=== PATIENT | female | born 1955 | race Caucasian/White ===

== ENCOUNTER 2016-07-09 08:08 | Day surgery (SDC) | payer BC ==
--- NOTE | 2016-07-09 07:35 | PCM.HP ---
H&P History of Present Illness - General Date of Service: 07/09/16 Admit Problem/Dx: CC: Abdominal pain HPI: The patient is a 61-year-old female referred by Rosa Tello NP for epigastric pain, dysphagia, and bowel pattern change, possible endoscopy. Patient was last evaluated on 05/12/2016 . The patient was complaining stomach cramps, difficulty swallowing, bloated and bowel pattern changes. The patient was taking Prilosec which did not improve symptoms. She was having constipation. Previously was having around 3 bowel movements per day. She was having episodes of nausea, sweating and stomach cramps about 4-5 times a month. She would then have a bowel movement and then symptoms resolved. She did start Victoza for diabetes but noted the symptoms started before this medication was started. Reviewed labs from 04/10/2016. Hemoglobin A1c was 9.7. CBC was within acceptable limits. TSH was 3.28. The patient was last evaluated 06/03. There have been no changes in their health since that time. She reports she still does have dysphagia. She's on some nausea with eating. She does reports that she has had no bowel explosions for 3 weeks. She still does have some lower abdominal pain at times. She's not taking any Prilosec or acid suppressive therapy. She reports her constipation is somewhat better with use of fiber and MiraLax. She denies any chest pressure today. She does still have occasional gas. She did vomit from the prep and did consume all but one cup of the prep. She did take Zofran. She does report that she did fall in her kitchen while vomiting yesterday she denied her head. She does have a bruise to her elbow and hurting in right knee is also sore. They have no questions or concerns about today's procedures. She did have a negative stress test on Reports-Started having chest pain in February. She reports she forgot to mention this to her PCP at her last visit. Reports- Went to ED about the fifth time chest pain occurred. Patient was evaluated in the ED on 03/03/2016. At that time she had a history of three-day bout of chest pain. Radiating to her back. Pain was epigastric. She was having nausea and night sweats at that time. EKG completed was normal in sinus rhythm. No acute coronary syndrome was noted. CBC was unremarkable. CMP showed slight elevation of BUN at 20. Bilirubin, AST, ALT, alk phosphatase were all normal. Troponin and CK-MB were negative. Lipase was low at 70. BNP was normal at 21. Chest x-ray was normal. D-dimer was normal at 0.29. It was felt that the pain may be reflux or related to a pulled muscle however patient was advised to discuss a stress test with PCP to further evaluate her heart. [id number] Prilosec was recommended. Reports- Will have gas and will have pressure in her upper abdomen. Tries to belch and when she can belch, she feels better. March symptoms got worse. Reports she has "Poop attacks. " Normally would have stools 4-5 times a day, then started having constipation. Will have a stomach ache and need to sit in restroom for 45 minutes. Will have pain and nausea. Finally will have a large BM, normal. Then nausea will go Away. Food has started not to taste as well. Has a Decreased appetite. NOW will have a stool only every three days. Will have attacks twice to three times a week. Feels exhausted. Gets sweaty with the stooling. Has to make sure she is home when it is happening. . Poop attacks occur 1-2 times per week. Feels a central chest pressure due to gas. Elevating HOB did not help. PCP told to take PPI. This also Did not help. Tried Gas X this did not help. Seems to have increased flatus. Stomach will get hard and full. She is Doing nothing for constipation. Takes Magnesium Oxide for reported low Mg, last MG in [facility] was , low normal at 1.8. Has noted Hematochezia a few times. NO: melena/blood on tissue paper/ hemorrhoids. Now is having around 3 stools weekly.. Bowel movements are described as irregular and can be easy to pass, strains first five minutes of stools. Has had unintentional weight loss, 11 pounds. Maybe thinner stools. Has upper and lower left abdominal pain. Denies history of ulcerative colitis or Crohn's disease. Denies any family history of inflammatory bowel disease or GI cancers. Last colonoscopy was 06/14/2004 biopsy showed mild chronic colitis at that time, patch of colitis was noted at 35 cm. This was completed by Dr. Dao. Follow-up was recommended on a when necessary basis of that time. . No reflux, heartburn. Hears a gurgling. Has had Nausea. NO: vomiting. Has had dysphagia. Swallowing is getting worse. Has to eat Smaller portions and chew food well and needs water to go down. NO heimlich maneuver. Last EGD was completed 06/01/[address] Dao. EGD was normal with the exception of small polyps in the body of the stomach. Polypectomy was completed. Pathology showed fundic gland/hyperplastic polyp with focal changes suggesting reactive gastropathy. Had upper GI series following EGD in 2013: IMPRESSION: Negative double-contrast upper GI. No right upper abdominal pain. No meagan/light colored stools. No greasy stools. NO pain/diarrhea with fatty meals. Patient does not have a gallbladder. Describes upper and lower abdomen (left lateral) pain as off and on, deep/ miserable/ache, rates it a 7-8/10. Last mammogram was ? 2014. NO: Family hx of breast cancer. Source of Information: Patient History Limitations: Reports: No limitations - Related Data Allergies/Adverse Reactions: Allergies Allergy/AdvReac Type Severity Reaction Status Date / Time clarithromycin [From Biaxin] Allergy Rash Verified 07/09/16 09:27 levofloxacin [From Levaquin] Allergy Other Verified 07/09/16 09:27 nitrofurantoin Allergy Cannot Verified 07/09/16 09:27 [From Macrobid] Remember nizatidine [From Axid] Allergy Itching Verified 07/09/16 09:27 Penicillins Allergy Rash Verified 07/09/16 09:27 Sulfa (Sulfonamide Allergy Rash Verified 07/09/16 09:27 Antibiotics) Home Medications: Home Meds Ca Cmb No.1/Vit D3/B-6/FA/B12 [Vitamin D3 1,000 Unit] 1 each PO DAILY 07/07/13 [ History] Metoprolol Succinate [Toprol XL] 25 mg PO DAILY 07/07/13 [History] Albuterol [Proventil HFA] 6.7 gm INH Q4H PRN 01/29/15 [History] Ascorbic Acid [Vitamin C] 250 mg PO DAILY 01/29/15 [History] Cyanocobalamin (Vitamin B-12) [Vitamin B-12] 500 mcg SL DAILY 01/29/15 [History] DULoxetine HCl [Cymbalta] 60 mg PO DAILY 01/29/15 [History] Hydrochlorothiazide 25 mg PO DAILY 01/29/15 [History] Insulin Detemir [Levemir] 46 unit SUBCUT BEDTIME 01/29/15 [History] Magnesium 250 mg PO DAILY 01/29/15 [History] Calcium Carbonate/Vitamin D3 [Calcium 600 + Vit D Softgel] 1 cap PO DAILY [History] Lactobacillus Acidophilus [Probiotic] 1 cap PO DAILY 07/08/16 [History] Levothyroxine 25 mcg PO DAILY 07/08/16 [History] Liraglutide [Victoza] 3 ml SQ DAILY 07/08/16 [History] Multivitamin [Multivitamins] 1 tab PO DAILY 07/08/16 [History] fentaNYL [Fentanyl] 50 mcg TOP Q72H 07/08/16 [History] Past Medical History HEENT History: Reports: Allergic rhinitis Other HEENT History: eye surgery for detached retina, wears glasses Cardiovascular History: Reports: High cholesterol, Hypertension Respiratory History: Reports: Asthma, Sleep apnea Gastrointestinal History: Reports: Colon polyp, GERD Other Gastrointestinal History: epigastric pain, colitis, dysphagia, constipation, hiatal hernia, polyp Other 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 History: urgency, hypertonicity of bladder, overactive bladder BEFORE AND AFTER SCHOOL [employer] WORK[employer] History: Reports: Musculoskeletal History: Reports: Fibromyalgia, Osteoarthritis Other Musculoskeletal History: L knee sprain, neck pain, R knee pain Neurological History: Reports: None Psychiatric History: Reports: Anxiety, Depression, Panic attack Endocrine/Metabolic History: Reports: Diabetes, type II, Hypothyroidism, Vitamin D deficiency Hematologic History: Reports: None Immunologic History: Reports: None Oncologic (Cancer) History: Reports: None Other Dermatologic History: acne - Past Surgical History Head Surgeries/Procedures: Reports: None HEENT Surgical History: Reports: Retinal, Tonsillectomy GI Surgical History: Reports: Cholecystectomy, Colonoscopy, EGD, Hernia repair/ other Female Surgical History: Reports: Hysterectomy Musculoskeletal Surgical History: Reports: Arthroscopic knee Other Musculoskeletal Surgeries/Procedures:: L foot surgery, knee surgeries in 00,07,10; lower back surgery, knee injections Social & Family History - Tobacco Use Smoking Status *Q: Never Smoker Second Hand Smoke Exposure: Yes - Caffeine Use Caffeine Use: Reports: None - Alcohol Use Days Per Week of Alcohol Use: 0 Number of Drinks Per Day: 0 Total Drinks Per Week: 0 - Recreational Drug Use Recreational Drug Use: No Drug Use in Last 12 Months: No H&P Review of Systems - Review of Systems: Review Of Systems: See Below Free Text/Narrative: Denies any exertional chest pain. Has exertional shortness of breath. No history of any easy bleeding or bruising. No personal history of clotting or bleeding disorders. Daughter with ITP. History of anesthetic complications, hard to intubate. No history of familial anesthetic complications. Last night had a fast heart beat after a nightmare. Some exertional lower extremity edema. NO dyspnea at rest, orthopnea. Occasionally has wheezing. Has obstructive sleep apnea. NO: chronic cough, upper respiratory symptoms in the last two weeks. No history of blood thinner use. No history of anemia. NO: joint replacement and heart valves. No history of seizure or stroke. No history of fever, chills. Hx of night sweats prior to hysterectomy. No prior cardiology or pulmonology evaluation. Uses albuterol as needed, not daily. All other systems reviewed and were negative except as per history of present illness. General: Reports: no symptoms HEENT: Reports: no symptoms Pulmonary: Reports: No Symptoms Cardiovascular: Reports: no symptoms. Denies: chest pain Gastrointestinal: Reports: Other (see hpi) Musculoskeletal: Reports: other (see hpi) Skin: Reports: bruising (right elbow) Psychiatric: Reports: no symptoms Neurological: Reports: No Symptoms Hematologic/Lymphatic: Reports: no symptoms Immunologic: Reports: no symptoms Exam - Exam Exam: See Below - Vital Signs Weight: 104.326 kg - Exam General: alert, oriented HEENT: Conjunctiva clear. No: Scleral icterus Lungs: Clear to auscultation, Normal respiratory effort Cardiovascular: regular rate, regular rhythm, normal S1, normal S2 Abdomen: soft. No: distention, guarding, tenderness Back Exam: normal inspection Extremities: normal inspection, normal pulses. No: clubbing, cyanosis, edema Skin: warm, dry, intact Neuro Extensive - Mental Status: alert, oriented x3, normal mood/affect, normal cognition, memory intact Psychiatric: alert, normal affect, normal mood *Q Meaningful Use (ADM) - VTE *Q VTE Criteria *Q: - Stroke *Q Stroke Criteria *Q: - AMI *Q AMI Criteria *Q: - Problem List (1) Epigastric pain SNOMED Code(s): 49005241 ICD Code: R10.13 - EPIGASTRIC PAIN Status: Acute Current Visit: Yes (2) Dysphagia SNOMED Code(s): 30632501, 147946639 ICD Code: R13.10 - DYSPHAGIA, UNSPECIFIED Status: Acute Current Visit: Yes (3) Change in bowel habits SNOMED Code(s): 636743007, 419452130 ICD Code: R19.4 - CHANGE IN BOWEL HABIT Status: Acute Current Visit: Yes (4) Lower abdominal pain SNOMED Code(s): 12293987 ICD Code: R10.30 - LOWER ABDOMINAL PAIN, UNSPECIFIED Status: Acute Current Visit: Yes (5) Constipation SNOMED Code(s): 64806179 ICD Code: K59.00 - CONSTIPATION, UNSPECIFIED Status: Acute Current Visit : Yes (6) Colitis determined by colorectal biopsy SNOMED Code(s): 36201217, 642243712 ICD Code: K52.9 - NONINFECTIVE GASTROENTERITIS AND COLITIS, UNSPECIFIED Status: Acute Current Visit: Yes (7) Hematochezia SNOMED Code(s): 877199680 ICD Code: K92.1 - MELENA Status: Acute Current Visit: Yes (8) Decreased stool caliber SNOMED Code(s): 7831453 ICD Code: R19.5 - OTHER FECAL ABNORMALITIES Status: Acute Current Visit: Yes Problem List Initiated/Reviewed/Updated: Yes Orders Last 24hrs: Active Orders 24 hr Category Date Time Status Peripheral IV Care [RC] . DIRECTED Care 07/09/16 00:01 Active Verify Patient Consent Obtain [RC] ASDIRECTED Care 07/09/16 00:01 Active Lactated Ringers [Ringers, Lactated] 1,000 ml Med 07/09/16 00:01 Active IV ASDIRECTED Lidocaine 1%/Sod Bicarbonate [Buffered Lidocaine 1% in Med 07/09/16 00:01 Active NS 8.4%] 0.25 ml IV ONETIME PRN Sodium Chloride 0.9% [Saline Flush] Med 07/09/16 00:01 Active 10 ml FLUSH ASDIRECTED PRN Medication Administration Instruction [OM.PC] Routine Oth 07/09/16 00:01 Ordered Peripheral IV Insertion Adult [OM.PC] Routine Oth 07/09/16 00:01 Ordered Medication Orders Lactated Ringer's (Ringers, Lactated) 1,000 mls @ 125 mls/hr IV ASDIRECTED NESTOR Lidocaine/Sodium Bicarbonate (Buffered Lidocaine 1% In Ns 8.4%) 0.25 ml IV ONETIME PRN PRN Reason: Prior to IV Start Sodium Chloride (Saline Flush) 10 ml FLUSH ASDIRECTED PRN PRN Reason: Keep Vein Open Assessment/Plan Comment:: 61yr female with epigastric pain, dysphagia, change in bowel habits, lower abdominal pain, constipation, hx of chronic colitis on prior biopsy, Hematochezia, smaller caliber stools, need for diagnostic EGD with possible balloon dilation and diagnostic colonoscopy Hx of Chest pressure Over due for mammogram. PLAN: We discussed performing a diagnostic EGD with possible balloon dilation and diagnostic colonoscopy. Proceed as planned. Risks and benefits reviewed without further questions or concerns. Consent obtained. Overdue for mammogram. Patient plans to call [facility] to schedule as this is where she had last mammogram. I personally reviewed the patient's previous medical records and laboratory studies. Patient verbalized understanding and agreed with care plan. Patient evaluated with [facility]. Plan formulated above. Violeta Antonio NP scribing for Dr. Jenni Moya General Surgery Department [facility]
[~2016-07-09 08:08] MED LIST: Lactated Ringers 1,000 ML IV SCH; Lidocaine 1%/Sod Bicarbonate in NS 8.4% 1 ML Syringe IV PRN; Sodium Chloride 0.9% 10 ML Syringe FLUSH PRN
[2016-07-09] MEDS ORDERED: Lidocaine 1% 4 ML ONE (08:38)
[2016-07-09] MEDS ORDERED: Propofol 200 MG/20 ML SDV ONE ×2 (08:39→10:14)
--- NOTE | 2016-07-09 08:46 | PCM.PREANE ---
Preanesthetic Assessment - Anesthesia/Transfusion/Family Hx Anesthesia History: Prior Anesthesia Reaction Type of Anesthesia Reaction: Excessive Somnolence Family History of Anesthesia Reaction: No Transfusion History: No Prior Transfusion(s) Intubation History: History of Difficulty Intubation (viewed anesthesia record from 2010, had to be awaken with procedure in [place] due to difficult airway ) - Review of Systems General: No Symptoms Pulmonary: No Symptoms Cardiovascular: No Symptoms Gastrointestinal: Nausea, Vomiting (from prep ) Neurological: No Symptoms Other: Reports: Diabetes (Blood surgar this morning 126 per patient ) - Physical Assessment NPO Status Date: 07/08/16 NPO Status Time: 17:00 Pulse: 86 O2 Sat by Pulse Oximetry: 98 Respiratory Rate: 16 Blood Pressure: 120/87 Temperature: 98.5 C Height: 1.57 m Weight: 104.326 kg ASA Class: 3 Mental Status: Alert & Oriented x3 Airway Class: Mallampati = 2 Dentition: Reports: Normal Dentition Thyro-Mental Finger Breadths: 3 Mouth Opening Finger Breadths: 5 ROM/Head Extension: Limited/Partial Lungs: Clear to auscultation, Normal respiratory effort Cardiovascular: Regular Rate, Regular Rhythm - Allergies Allergies/Adverse Reactions: Allergies Allergy/AdvReac Type Severity Reaction Status Date / Time clarithromycin [From Biaxin] Allergy Rash Verified 07/08/16 15:15 levofloxacin [From Levaquin] Allergy Other Verified 07/08/16 15:15 nitrofurantoin Allergy Cannot Verified 07/08/16 15:15 [From Macrobid] Remember nizatidine [From Axid] Allergy Itching Verified 07/08/16 15:15 Penicillins Allergy Rash Verified 07/08/16 15:15 Sulfa (Sulfonamide Allergy Rash Verified 07/08/16 15:15 Antibiotics) - Blood Blood Available: No - Anesthesia Plan Pre-Op Medication Ordered: None - Acknowledgements Anesthesia Type Planned: MAC Pt an Appropriate Candidate for the Planned Anesthesia: Yes Alternatives and Risks of Anesthesia Discussed w Pt/Guardian: Yes Pt/Guardian Understands and Agrees with Anesthesia Plan: Yes Additional Comments: Discussed possibility of difficult airway PreAnesthesia Questionnaire HEENT History: Reports: Allergic rhinitis Other HEENT History: eye surgery for detached retina, wears glasses Cardiovascular History: Reports: High cholesterol, Hypertension Respiratory History: Reports: Asthma, Sleep apnea Gastrointestinal History: Reports: Colon polyp, GERD Other Gastrointestinal History: epigastric pain, colitis, dysphagia, constipation, hiatal hernia, polyp Other 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 History: urgency, hypertonicity of bladder, overactive bladder [employer] History: Reports: Musculoskeletal History: Reports: Fibromyalgia, Osteoarthritis Other Musculoskeletal History: L knee sprain, neck pain, R knee pain Neurological History: Reports: None Psychiatric History: Reports: Anxiety, Depression, Panic attack Endocrine/Metabolic History: Reports: Diabetes, type II, Hypothyroidism, Vitamin D deficiency Hematologic History: Reports: None Immunologic History: Reports: None Oncologic (Cancer) History: Reports: None Other Dermatologic History: acne - Past Surgical History Head Surgeries/Procedures: Reports: None HEENT Surgical History: Reports: Retinal, Tonsillectomy GI Surgical History: Reports: Cholecystectomy, Colonoscopy, EGD, Hernia repair/ other Female Surgical History: Reports: Hysterectomy Musculoskeletal Surgical History: Reports: Arthroscopic knee Other Musculoskeletal Surgeries/Procedures:: L foot surgery, knee surgeries in 00,07,10; lower back surgery, knee injections - SUBSTANCE USE Smoking Status *Q: Never Smoker Tobacco Use Within Last Twelve Months: No Second Hand Smoke Exposure: Yes Days Per Week of Alcohol Use: 0 Number of Drinks Per Day: 0 Total Drinks Per Week: 0 Recreational Drug Use History: No - HOME MEDS Home Medications: Home Meds Ca Cmb No.1/Vit D3/B-6/FA/B12 [Vitamin D3 1,000 Unit] 1 each PO DAILY 07/07/13 [ History] Metoprolol Succinate [Toprol XL] 25 mg PO DAILY 07/07/13 [History] Albuterol [Proventil HFA] 6.7 gm INH Q4H PRN 01/29/15 [History] Ascorbic Acid [Vitamin C] 250 mg PO DAILY 01/29/15 [History] Cyanocobalamin (Vitamin B-12) [Vitamin B-12] 500 mcg SL DAILY 01/29/15 [History] DULoxetine HCl [Cymbalta] 60 mg PO DAILY 01/29/15 [History] Hydrochlorothiazide 25 mg PO DAILY 01/29/15 [History] Insulin Detemir [Levemir] 46 unit SUBCUT BEDTIME 01/29/15 [History] Magnesium 250 mg PO DAILY 01/29/15 [History] Calcium Carbonate/Vitamin D3 [Calcium 600 + Vit D Softgel] 1 cap PO DAILY [History] Lactobacillus Acidophilus [Probiotic] 1 cap PO DAILY 07/08/16 [History] Levothyroxine 25 mcg PO DAILY 07/08/16 [History] Liraglutide [Victoza] 3 ml SQ DAILY 07/08/16 [History] Multivitamin [Multivitamins] 1 tab PO DAILY 07/08/16 [History] fentaNYL [Fentanyl] 50 mcg TOP Q72H 07/08/16 [History] - CURRENT (IN HOUSE) MEDS Current Meds: Current Medications Lactated Ringer's (Ringers, Lactated) 1,000 mls @ 125 mls/hr IV ASDIRECTED NESTOR Lidocaine/Sodium Bicarbonate (Buffered Lidocaine 1% In Ns 8.4%) 0.25 ml IV ONETIME PRN PRN Reason: Prior to IV Start Sodium Chloride (Saline Flush) 10 ml FLUSH ASDIRECTED PRN PRN Reason: Keep Vein Open Discontinued Medications Lidocaine HCl (Xylocaine-Mpf 1%) Confirm Administered Dose 4 mls @ as directed .ROUTE .STK-MED ONE Stop: 07/09/16 08:39 Propofol (Diprivan 20 Ml) Confirm Administered Dose 200 mg .ROUTE .STK-MED ONE Stop: 07/09/16 08:40
--- NOTE | 2016-07-09 10:25 | PCM48HPAN ---
Post Anesthesia Note - EVALUATION WITHIN 48HRS OF ANESTHETIC Vital Signs in Normal Range: Yes Patient Participated in Evaluation: Yes Respiratory Function Stable: Yes Airway Patent: Yes Cardiovascular Function Stable: Yes Hydration Status Stable: Yes Pain Control Satisfactory: Yes Nausea and Vomiting Control Satisfactory: Yes Mental Status Recovered: Yes
--- NOTE | 2016-07-09 10:28 | PCM.OPNOTE ---
- General Post-Op/Procedure Note Date of Surgery/Procedure: 07/09/16 Operative Procedure(s): 1. Diagnostic EGD with cold forceps biopsy. 2. Diagnostic colonoscopy with cold forceps biopsy Pre Op Diagnosis: Dysphagia, change in bowel habits Post-Op Diagnosis: Gastritis, duodenitis, internal hemorrhoids [place] [facility] [place]geon: Jenni Moya Anesthesia Provider: Angeline Person Pathology: 1. Small bowel biopsy 2. Antral biopsy 3. Distal esophageal biopsy 4. Terminal ileum biopsy 5. Random colon biopsy 6. Stool studies for C. difficile, stool ova and parasites, stool culture, and fecal leukocytes. Fluid Replacement, Intraop: 600 (mL crystalloid) EBL in mLs: 1 Complications: None Condition: Good Free Text/Narrative:: INDICATION FOR PROCEDURE: The patient is a 61-year-old woman who was referred to me by SHAVON Manrique for evaluation for dysphagia and a change in bowel habits with occasional explosive diarrhea. Performing a colonoscopy and EGD and the associated risks of the procedures had been discussed with the patient. The patient found these risks acceptable and agreed to proceed. DESCRIPTION OF PROCEDURE: The patient was taken to the operating room and placed in the left lateral decubitus position. After induction of adequate sedation, a bite block was placed. A standard Olympus gastroscope was inserted into the oropharynx and guided down the esophagus without difficulty. The gastroesophageal junction was appreciated at 35 cm from the teeth. There was no evidence of stricture or esophageal ulcerations. The scope was advanced into the stomach, and there was mild diffuse gastritis. The scope was passed into the proximal jejunum and the duodenum which showed mild duodenitis of D1 and D2. There were no ulcerations. The proximal jejunum was grossly normal in appearance. Multiple cold forceps biopsies were obtained of the proximal jejunum and duodenum. The scope was withdrawn into the antrum, and additional cold forceps biopsies were obtained. The remainder of the gastric body was examined, and there were a few gastric polyps in the body of the stomach, they were biopsied with cold forceps. The scope was retroflexed, and there was no evidence of hiatal hernia. The scope was straightened and withdrawn to the GE junction. Additional cold forceps biopsies were obtained of the distal esophagus. The scope was withdrawn through the remainder of the esophagus and no further abnormalities were noted. The posterior oropharynx was grossly normal in appearance. The scope was fully withdrawn and attention was then turned to the colonoscopy. A digital rectal exam was performed which was unremarkable. A standard adult Olympus colonoscope was inserted into the rectum and guided under direct visualization to the appendiceal orifice and ileocecal valve. The terminal ileum was intubated and examined for 20 cm. It was unremarkable. Cold forceps biopsies were obtained of the terminal ileum. The scope was then slowly withdrawn through the colon and additional random biopsies were obtained. Stool was aspirated for C. diff, WBCs, stool culture and ova and parasites. The quality of the prep was good. There was no evidence of angiodysplasias, diverticulum or mass lesions. The scope was withdrawn into the rectum and retroflexed. There were Grade I internal hemorrhoids. The scope was straightened, the colon was desufflated,and the scope was withdrawn. The patient was awakened from sedation and transferred to the recovery room in stable condition having tolerated the procedure well. POSTOPERATIVE PLAN: I discussed with the patient's my intraoperative findings and recommendations. The patient will follow up in approximately 7- 10 days to discuss pathology and how their symptoms are progressing. The patient is to continue her Prilosec. I have asked the patient to follow a GERD\ gastritis diet. We will send her a letter regarding her pathology findings and further recommendations.
[2016-07-09 12:18] VITALS: BP 101/57
== END 2016-07-09 11:10 | disposition home or self-care (01) ==
LOC: JD.SDS 08:08
PROVIDERS: ATTEND Surgery
PROC: 0DB98ZX Excision of Duodenum, Via Natural or Artificial Opening Endoscopic, Diagnostic (ICD-10-PCS; principal; 2016-07-09)
PROC: 0DB68ZX Excision of Stomach, Via Natural or Artificial Opening Endoscopic, Diagnostic (ICD-10-PCS; 2016-07-09)
PROC: 0DB48ZX Excision of Esophagogastric Junction, Via Natural or Artificial Opening Endoscopic, Diagnostic (ICD-10-PCS; 2016-07-09)
PROC: 0DBE8ZX Excision of Large Intestine, Via Natural or Artificial Opening Endoscopic, Diagnostic (ICD-10-PCS; 2016-07-09)
DX: K31.7 Polyp of stomach and duodenum (principal); K52.82 Eosinophilic colitis; K29.70 Gastritis, unspecified, without bleeding; K29.80 Duodenitis without bleeding; K64.0 First degree hemorrhoids; I10 Essential (primary) hypertension; E11.9 Type 2 diabetes mellitus without complications; E03.9 Hypothyroidism, unspecified; E55.9 Vitamin D deficiency, unspecified; E78.00 Pure hypercholesterolemia, unspecified; J45.909 Unspecified asthma, uncomplicated; G47.30 Sleep apnea, unspecified; M79.7 Fibromyalgia; M19.90 Unspecified osteoarthritis, unspecified site; F41.9 Anxiety disorder, unspecified; F32.9 Major depressive disorder, single episode, unspecified; Z88.0 Allergy status to penicillin; Z88.1 Allergy status to other antibiotic agents; Z88.2 Allergy status to sulfonamides; Z79.4 Long term (current) use of insulin; Z79.899 Other long term (current) drug therapy; Z86.010 Personal history of colon polyps; Z90.49 Acquired absence of other specified parts of digestive tract; Z90.710 Acquired absence of both cervix and uterus; Z90.89 Acquired absence of other organs; Z98.890 Other specified postprocedural states
CPT/HCPCS: 43239; 45380; 87046; 87328; 87329; 87493; 87899; 88305; 89055; J7120; 87427; J2704

== ENCOUNTER 2017-08-31 09:23 | Inpatient (IN) | payer BC ==
[~2017-08-31 09:23] MED LIST changes: +Acetaminophen 325 MG Tab PO SCH; +Bisacodyl 5 MG Tab PO PRN; +Cyclobenzaprine 10 MG Tab PO PRN; +Ketorolac 15 MG/ML SDV IVPUSH PRN; +Lidocaine 1%/Sod Bicarbonate in NS 8.4% 1 ML Syringe IDERM PRN; -Lidocaine 1%/Sod Bicarbonate in NS 8.4% 1 ML Syringe IV PRN; +Magnesium Hydroxide 400 MG/5 ML Susp 30 ML Cup PO PRN; +Morphine 2 MG/ML Syringe IVPUSH PRN; +Naloxone 0.4 MG/ML SDV IVPUSH PRN; +Ondansetron 4 MG/2 ML SDV IVPUSH PRN; +Pregabalin 25 MG Cap PO SCH; +Ropivacaine 0.5% 5 MG/ML 30 ML SDV ONE; +Sennosides 8.6 MG Tab PO PRN; +oxyCODONE ER 10 MG TAB.ER PO SCH
[2017-08-31] MEDS ORDERED: Ketorolac 30 MG/ML SDV ONE (09:43)
[2017-08-31] MEDS ORDERED: Propofol 200 MG/20 ML SDV ONE (09:44)
[2017-08-31] MEDS ORDERED: Midazolam 1 MG/ML 2 ML SDV ONE (09:44)
[2017-08-31] MEDS ORDERED: Atropine 0.4 MG/ML SDV ONE (10:13)
[2017-08-31] MEDS ORDERED: ceFAZolin 1 GM Vial ONE ×2 (10:13→10:20)
[2017-08-31] MEDS ORDERED: Bupivacaine 0.75% 30 ML SDV ONE (10:13)
[2017-08-31] MEDS ORDERED: Iodine/Sodium Iodide 2% Tincture 30 ML Bottle ONE (10:21)
--- NOTE | 2017-08-31 10:32 | PCM.PREANE ---
Preanesthetic Assessment - Anesthesia/Transfusion/Family Hx Anesthesia History: Prior Anesthesia Without Reaction Type of Anesthesia Reaction: Other (see below) (told difficult intubation) Transfusion History: No Prior Transfusion(s) Intubation History: History of Difficulty Intubation (viewed anesthesia record from 2010, had to be awaken with procedure in [place] due to difficult airway ) - Review of Systems General: No Symptoms Pulmonary: Other (asthma well controlled, sleep apea, uses CPAP, CXR negative) Cardiovascular: Other (HTN, stress test neg in 2017, EKG with NSR) Gastrointestinal: Other (GERD) Neurological: No Symptoms Other: Reports: Diabetes (am BS 135), Thyroid Problems, Anxiety - Physical Assessment NPO Status Date: 08/30/17 NPO Status Time: 22:00 Pulse: 82 O2 Sat by Pulse Oximetry: 96 Respiratory Rate: 16 Blood Pressure: 120/60 Temperature: 37 C Height: 1.55 m Weight: 108 kg ASA Class: 3 Mental Status: Alert & Oriented x3 Airway Class: Mallampati = 2 Dentition: Reports: Normal Dentition Thyro-Mental Finger Breadths: 3 Mouth Opening Finger Breadths: 3 ROM/Head Extension: Full Lungs: Clear to Auscultation, Normal Respiratory Effort Cardiovascular: Regular Rate, Regular Rhythm - Lab Values: Laboratory Last Values MRSA (PCR) Negative 08/19/17 15:52 - Allergies Allergies/Adverse Reactions: Allergies Allergy/AdvReac Type Severity Reaction Status Date / Time clarithromycin [From Biaxin] Allergy Rash Verified 08/28/17 15:01 levofloxacin [From Levaquin] Allergy Other Verified 08/28/17 15:01 nitrofurantoin Allergy Cannot Verified 08/28/17 15:01 [From Macrobid] Remember nizatidine [From Axid] Allergy Itching Verified 08/28/17 15:01 Penicillins Allergy Rash Verified 08/28/17 15:01 Sulfa (Sulfonamide Allergy Rash Verified 08/28/17 15:01 Antibiotics) - Blood Blood Available: No Product(s) Available: None - Anesthesia Plan Pre-Op Medication Ordered: None Beta Marlon: Metoprolol Med Last Dose Date: 08/31/17 Med Last Dose Time: 07:00 - Acknowledgements Anesthesia Type Planned: General Anesthesia Pt an Appropriate Candidate for the Planned Anesthesia: Yes Alternatives and Risks of Anesthesia Discussed w Pt/Guardian: Yes Pt/Guardian Understands and Agrees with Anesthesia Plan: Yes PreAnesthesia Questionnaire HEENT History: Reports: Allergic Rhinitis, Impaired Vision Other HEENT History: eye surgery for detached retina Cardiovascular History: Reports: High Cholesterol, Hypertension Respiratory History: Reports: Asthma, Sleep Apnea Gastrointestinal History: Reports: Colon Polyp, GERD, Hiatal Hernia Other Gastrointestinal History: umbilical hernia repair 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 History: Reports: Other (See Below) 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: Musculoskeletal History: Reports: Fibromyalgia, Osteoarthritis Other Musculoskeletal History: knee pain, L foot surgery, knee surgeries in , ,10; lower back surgery Neurological History: Reports: None Psychiatric History: Reports: Anxiety, Depression, Panic Attack Endocrine/Metabolic History: Reports: Diabetes, Type II, Hypothyroidism, Vitamin D Deficiency Hematologic History: Reports: None Immunologic History: Reports: None Oncologic (Cancer) History: Reports: None Other Dermatologic History: acne - Past Surgical History Head Surgeries/Procedures: Reports: None HEENT Surgical History: Reports: Eye Surgery, Retinal, Tonsillectomy Respiratory Surgical History: Reports: None GI Surgical History: Reports: Cholecystectomy, Colonoscopy, Hernia Repair/Other Female Surgical History: Reports: Hysterectomy Male Surgical History: Reports: None Endocrine Surgical History: Reports: None Neurological Surgical History: Reports: None Musculoskeletal Surgical History: Reports: Arthroscopic Knee Other Musculoskeletal Surgeries/Procedures:: L foot surgery, knee surgeries in ,,; lower back surgery, knee injections Oncologic Surgical History: Reports: None - SUBSTANCE USE Smoking Status *Q: Never Smoker Second Hand Smoke Exposure: No Recreational Drug Use History: No - HOME MEDS Home Medications: Home Meds Ca Cmb No.1/Vit D3/B-6/FA/B12 [Vitamin D3 1,000 Unit] 1 each PO DAILY 07/07/13 [ History] Metoprolol Succinate [Toprol XL] 25 mg PO DAILY 07/07/13 [History] Albuterol [Proventil HFA] 6.7 gm INH Q4H PRN 01/29/15 [History] DULoxetine HCl [Cymbalta] 60 mg PO DAILY 01/29/15 [History] Hydrochlorothiazide 25 mg PO DAILY 01/29/15 [History] Insulin Detemir [Levemir] 50 unit SUBCUT BEDTIME 01/29/15 [History] Lactobacillus Acidophilus [Probiotic] 1 cap PO DAILY 07/08/16 [History] Levothyroxine 25 mcg PO DAILY 07/08/16 [History] Ascorbic Acid [Vitamin C] 250 mg PO DAILY 08/28/17 [History] Cyanocobalamin/Folic Acid [Vitamin I48-Pstqc Acid] 1 tab PO DAILY 08/28/17 [ History] Dulaglutide [Trulicity] 0.5 ml SQ SA 08/28/17 [History] Insulin Lispro [Humalog Kwikpen U-100] 15 units SQ TIDAC 08/28/17 [History] - CURRENT (IN HOUSE) MEDS Current Meds: Current Medications Acetaminophen (Tylenol) 975 mg PO ONETIME [facility] Aspirin (Ecotrin) 325 mg PO BID [facility] Bisacodyl (Dulcolax) 5 mg PO DAILY PRN PRN Reason: Constipation Cyclobenzaprine HCl (Flexeril) 10 mg PO TID PRN PRN Reason: Spasms Docusate Sodium (Colace) 100 mg PO BID [facility] Famotidine (Pepcid) 20 mg PO Q12H [facility] Lactated Ringer's (Ringers, Lactated) 1,000 mls @ 125 mls/hr IV ASDIRECTED [facility] Last Admin: 08/31/17 10:15 Dose: 125 mls/hr Cefazolin Sodium/Dextrose 2 gm (/ Premix) 50 mls @ 100 mls/hr IV Q8H [facility] Stop: 08/31/17 23:29 Ketorolac Tromethamine (Toradol) 15 mg IVPUSH Q6H PRN PRN Reason: Pain Lidocaine/Sodium Bicarbonate (Buffered Lidocaine 1% In Ns 8.4%) 0.25 ml IDERM ONETIME PRN PRN Reason: Prior to IV Start Last Admin: 08/31/17 10:14 Dose: 0.25 ml Magnesium Hydroxide (Milk Of Magnesia) 30 ml PO BID PRN PRN Reason: Constipation Morphine Sulfate (Morphine) 2 mg IVPUSH Q2H PRN PRN Reason: Breakthrough Pain Naloxone HCl (Narcan) 0.1 mg IVPUSH Q5M PRN PRN Reason: Oversedation Ondansetron HCl (Zofran) 4 mg IVPUSH Q6H PRN PRN Reason: Nausea/Vomiting Oxycodone HCl (Oxycontin) 10 mg PO ONETIME [facility] Oxycodone/Acetaminophen (Percocet 325-5 Mg) 1 - 2 tab PO Q4H PRN PRN Reason: Pain Pregabalin (Lyrica) 50 mg PO ONETIME [facility] Senna (Senna) 8.6 mg PO BID PRN PRN Reason: Constipation Sodium Chloride (Saline Flush) 10 ml FLUSH ASDIRECTED PRN PRN Reason: Keep Vein Open Discontinued Medications Atropine Sulfate (Atropine) Confirm Administered Dose 0.4 mg .ROUTE .STK-MED ONE Stop: 08/31/17 10:14 Bupivacaine HCl (Sensorcaine-Mpf 0.75%) Confirm Administered Dose 30 ml .ROUTE .STK-MED ONE Stop: 08/31/17 10:14 Bupivacaine HCl (Marcaine 0.25%) Confirm Administered Dose 30 ml .ROUTE .STK- MED ONE Stop: 08/31/17 10:22 Cefazolin Sodium (Ancef) Confirm Administered Dose 2 gm .ROUTE .STK-MED ONE Stop: 08/31/17 10:14 Cefazolin Sodium (Ancef) Confirm Administered Dose 2 gm .ROUTE .STK-MED ONE Stop: 08/31/17 10:21 Morphine Sulfate 8 mg/Epinephrine HCl 0.3 mg/Cefuroxime Sodium 750 mg/Ketorolac Tromethamine 30 mg/Sodium Chloride 27.9 ml 0 mg .XX ONETIME ONE Stop: 08/31/17 06:57 Iodine (Iodine 2% Mild Tincture) Confirm Administered Dose 30 ml .ROUTE .STK- MED ONE Stop: 08/31/17 10:22 Ketorolac Tromethamine (Toradol) Confirm Administered Dose 30 mg .ROUTE .STK- MED ONE Stop: 08/31/17 09:44 Midazolam HCl (Versed 1 Mg/Ml) Confirm Administered Dose 2 mg .ROUTE .STK-MED ONE Stop: 08/31/17 09:45 Propofol (Diprivan 20 Ml) Confirm Administered Dose 600 mg .ROUTE .STK-MED ONE Stop: 08/31/17 09:45 Ropivacaine (Naropin 0.5%) Confirm Administered Dose 30 ml .ROUTE .STK-MED ONE Stop: 08/31/17 07:43 Tranexamic Acid (Cyklokapron) Confirm Administered Dose 1,000 mg .ROUTE .STK- MED ONE Stop: 08/31/17 10:21 Vancomycin HCl (Vancomycin) Confirm Administered Dose 1 gm .ROUTE .STK-MED ONE Stop: 08/31/17 10:21
[2017-08-31] MEDS ORDERED: HYDROmorphone 0.5 MG/0.5 ML Syringe ONE ×3 (10:48→12:59)
[2017-08-31] MEDS ORDERED: fentaNYL 250 MCG/5 ML SDV ONE (10:48)
[2017-08-31] MEDS ORDERED: Rocuronium 50 MG/5 ML Vial ONE (10:48)
[2017-08-31] MEDS ORDERED: Ondansetron 4 MG/2 ML SDV ONE (12:24)
[2017-08-31] MEDS ORDERED: Dexamethasone 4 MG/ML SDV ONE ×2 (12:24→12:45)
[2017-08-31] MEDS ORDERED: Bupivacaine 0.25% 30 ML SDV ONE (12:39)
[2017-08-31] MEDS ORDERED: Phenylephrine/Normal Saline 100 MCG/ML 10 ML Syringe ONE (13:06)
[2017-08-31] MEDS: Bupivacaine 0.25% 30 ML SDV ONE ×2 (13:08→13:13)
[2017-08-31] MEDS: Vancomycin 1 GM SDV ONE ×2 (13:09→13:15)
[2017-08-31] MEDS: Morphine 8 MG, EPINEPHrine 0.3 MG, Cefuroxime 750 MG, Ketorolac 30 MG, Sodium Chloride ... ONE ×10 (13:09→13:13)
[2017-08-31] MEDS: Bupivacaine 0.25% 10 ML SDV ONE ×2 (13:10→13:40)
[2017-08-31] MEDS: Triamcinolone Acetonide 40 MG/ML 1 ML MDV ONE ×2 (13:11→13:40)
[2017-08-31] MEDS ORDERED: Neostigmine Methylsulfate 1 MG/ML 5 ML Syringe ONE (13:17)
[2017-08-31] MEDS ORDERED: Lactated Ringers 1,000 ML ONE (13:54)
[2017-08-31] MEDS ORDERED: Albuterol 6.7 GM Inhaler INH PRN (14:00)
[2017-08-31] MEDS ORDERED: Albuterol 0.083% 2.5 MG/3 ML Neb Soln NEB ONE (14:09)
[2017-08-31] MEDS ORDERED: fentaNYL 100 MCG/2 ML SDV IVPUSH PRN (14:09)
[2017-08-31] MEDS ORDERED: HYDROmorphone 0.5 MG/0.5 ML Syringe IVPUSH PRN (14:09)
--- NOTE | 2017-08-31 14:12 | PCM.POSTAN ---
POST ANESTHESIA ASSESSMENT - MENTAL STATUS Mental Status: Alert, Oriented - VITAL SIGNS Pulse Rate: 93 SaO2: 97 Resp Rate: 14 Blood Pressure: 141/72 Temperature: 36.2 C - RESPIRATORY Respiratory Status: Respiratory Rate WNL, Airway Patent, O2 Saturation Stable, Supplemental Oxygen - CARDIOVASCULAR CV Status: Pulse Rate WNL, Blood Pressure Stable - GASTROINTESTINAL GI Status: No Symptoms - PAIN Pain Score: 7 (fentanyl given) - POST OP HYDRATION Hydration Status: Adequate & Stable
[2017-08-31] MEDS ORDERED: fentaNYL 100 MCG/2 ML SDV ONE (14:15)
--- NOTE | 2017-08-31 14:46 | PCM.SN ---
- Free Text/Narrative Note: Right selective femoral nerve block at the adductor canal for post-procedure pain control under US guidance requested by Dr. Solis. Time Out: 1414 End: 1427 Chart reviewed. Consent signed. Questions answered. Appropriate monitors applied. Time out performed. Right mid-shaft femur identified with ultrasound, scanning medially of femur, the femoral artery in the adductor canal visualized , and the femoral nerve located laterally to the artery. The skin was prepped lateral to the ultrasound probe with chlorahexadine times two. 1% Lidocaine local injected.The 21ga 4 insulated block needle was inserted under direct ultrasound guidance into the adductor canal. 25mL of 0.5% ropivacaine with 1: 200,000 epinephrine was injected circumferentially around the nerve with intermittent negative aspiration noted. Patient tolerated the procedure well. Sterile technique noted along with sterile gloves, mask, and sterile probe cover. See picture on progress note and vital signs on nurses notes. Block completed in PACU. Assisted by Valentino Kearns CRNA
--- NOTE | 2017-08-31 14:58 | CR ---
Right knee: AP and lateral views of the right knee were obtained Comparison: No prior right knee exam. Knee prosthesis is seen. Components are aligned. Dystrophic calcification is seen within the lower extremity posteriorly which is incidental. Mild amount of soft tissue air is seen from the surgical procedure. Impression: 1. Incidental dystrophic calcification. 2. Satisfactory postop radiographic appearance of recently placed right knee prosthesis. Diagnostic code #2
--- NOTE | 2017-08-31 17:23 | PCM.OPNOTE ---
- General Post-Op/Procedure Note Date of Surgery/Procedure: 08/31/17 Operative Procedure(s): right total knee arthroplasty with left knee corticosteroid injection Pre Op Diagnosis: bilateral knee osteoarthrosis Post-Op Diagnosis: Same Anesthesia Technique: General LMA, Local Primary Surgeon: Varinder Solis Anesthesia Provider: Neva Peterson Repair Order Clerk: Alisha Menon Repair Order Clerk: Gemma Sidhu EBL in mLs: 500 Complications: None Condition: Good Free Text/Narrative:: Intake & Output 08/31/17 08/31/17 08/31/17 06:59 14:59 22:59 Intake Total 300 Balance 300 size 3/ 29x9
[2017-08-31] MEDS: Insulin Aspart 100 Units/ML 3 ML Pen SUBCUT SCH (17:27)
[2017-08-31] MEDS: ceFAZolin 2 GM in Premix Bag 1 BAG IV SCH (17:31)
--- NOTE | 2017-08-31 18:01 | PCM.CONS ---
H&P History of Present Illness - General Date of Service: 08/31/17 Admit Problem/Dx: Admission Diagnosis/Problem Admission Diagnosis/Problem Osteoarthritis of knee Source of Information: Patient, Old Records, Provider History Limitations: Reports: No Limitations - History of Present Illness Initial Comments - Free Text/Narative: Shanna is a 62 yo female patient of Dr. Solis who is post-operative day 0 of R STELLA. Hospital medicine was consulted for post-operative medical care. At this time she is stable. Pain is controlled- she states it's a 4/10 at rest and 8/10 with walking. She denies any chest pain, shortness of breath, palpitations, nausea, or vomiting. She did complain of being "a little dizzy" when walking with PT today.She carries a history of: OA, DM2, sleep apnea, GERD, vitamin D deficiency, hiatal hernia, anxiety, fibromyalgia, HLD, HTN, seasonal allergies, asthma, hypothyroid. She has never smoked. She is a full code. Her primary care provider is Rosa Tello. Right Knee Pain Score (Numeric/FACES): 8 - Related Data Allergies/Adverse Reactions: Allergies Allergy/AdvReac Type Severity Reaction Status Date / Time clarithromycin [From Biaxin] Allergy Rash Verified 08/28/17 15:01 levofloxacin [From Levaquin] Allergy Other Verified 08/28/17 15:01 nitrofurantoin Allergy Cannot Verified 08/28/17 15:01 [From Macrobid] Remember nizatidine [From Axid] Allergy Itching Verified 08/28/17 15:01 Penicillins Allergy Rash Verified 08/28/17 15:01 Sulfa (Sulfonamide Allergy Rash Verified 08/28/17 15:01 Antibiotics) Home Medications: Home Meds Ca Cmb No.1/Vit D3/B-6/FA/B12 [Vitamin D3 1,000 Unit] 1 each PO DAILY 07/07/13 [ History] Metoprolol Succinate [Toprol XL] 25 mg PO DAILY 07/07/13 [History] Albuterol [Proventil HFA] 6.7 gm INH Q4H PRN 01/29/15 [History] DULoxetine HCl [Cymbalta] 60 mg PO DAILY 01/29/15 [History] Hydrochlorothiazide 25 mg PO DAILY 01/29/15 [History] Insulin Detemir [Levemir] 50 unit SUBCUT BEDTIME 01/29/15 [History] Lactobacillus Acidophilus [Probiotic] 1 cap PO DAILY 07/08/16 [History] Levothyroxine 25 mcg PO DAILY 07/08/16 [History] Ascorbic Acid [Vitamin C] 250 mg PO DAILY 08/28/17 [History] Cyanocobalamin/Folic Acid [Vitamin Y26-Jnywg Acid] 1 tab PO DAILY 08/28/17 [ History] Dulaglutide [Trulicity] 0.5 ml SQ SA 08/28/17 [History] Insulin Lispro [Humalog Kwikpen U-100] 15 units SQ TIDAC 08/28/17 [History] Acetaminophen/oxyCODONE [Percocet 325-5 MG] 1 - 2 tab PO Q6H PRN #60 tablet 02/07 [Rx] Aspirin [Ecotrin] 325 mg PO BID #84 tab.ec 08/31/17 [Rx] Bisacodyl [Dulcolax] 5 mg PO DAILY PRN tablet 08/31/17 [Rx] Docusate Sodium [Colace] 100 mg PO BID cap 08/31/17 [Rx] Famotidine [Pepcid] 20 mg PO Q12H tablet 08/31/17 [Rx] Magnesium Hydroxide [Milk of Magnesia] 30 ml PO BID PRN cup 08/31/17 [Rx] Sennosides [Senna] 8.6 mg PO BID PRN tablet 08/31/17 [Rx] Past Medical History HEENT History: Reports: Allergic Rhinitis, Impaired Vision Other HEENT History: eye surgery for detached retina Cardiovascular History: Reports: High Cholesterol, Hypertension Respiratory History: Reports: Asthma, Sleep Apnea Gastrointestinal History: Reports: Colon Polyp, GERD, Hiatal Hernia Other Gastrointestinal History: umbilical hernia repair 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 History: Reports: Other (See Below) Other 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 History: 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: Musculoskeletal History: Reports: Fibromyalgia, Osteoarthritis Other Musculoskeletal History: knee pain, L foot surgery, knee surgeries in 00, 07,10; lower back surgery Neurological History: Reports: None Psychiatric History: Reports: Anxiety, Depression, Panic Attack Endocrine/Metabolic History: Reports: Diabetes, Type II, Hypothyroidism, Vitamin D Deficiency Hematologic History: Reports: None Immunologic History: Reports: None Oncologic (Cancer) History: Reports: None Other Dermatologic History: acne - Past Surgical History Head Surgeries/Procedures: Reports: None HEENT Surgical History: Reports: Eye Surgery, Retinal, Tonsillectomy Respiratory Surgical History: Reports: None GI Surgical History: Reports: Cholecystectomy, Colonoscopy, Hernia Repair/Other Female Surgical History: Reports: Hysterectomy Male Surgical History: Reports: None Endocrine Surgical History: Reports: None Neurological Surgical History: Reports: None Musculoskeletal Surgical History: Reports: Arthroscopic Knee Other Musculoskeletal Surgeries/Procedures:: L foot surgery, knee surgeries in 00,07,10; lower back surgery, knee injections Oncologic Surgical History: Reports: None Social & Family History - Tobacco Use Smoking Status *Q: Never Smoker Second Hand Smoke Exposure: No - Caffeine Use Caffeine Use: Reports: Coffee - Recreational Drug Use Recreational Drug Use: No H&P Review of Systems - Review of Systems: Review Of Systems: See Below General: Reports: Fatigue. Denies: Fever, Chills HEENT: Reports: No Symptoms Pulmonary: Reports: No Symptoms. Denies: Shortness of Breath, Pleuritic Chest Pain, Cough Cardiovascular: Reports: No Symptoms. Denies: Chest Pain, Palpitations, Orthopnea, Edema Gastrointestinal: Reports: No Symptoms. Denies: Abdominal Pain, Diarrhea, Nausea, Vomiting 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: Reports: No Symptoms. Denies: Dysuria, Frequency, Burning, Pain , Urgency Musculoskeletal: Reports: Joint Pain (s/p R STELLA- 8/10 with walking, 4/10 at rest ) Skin: Reports: No Symptoms Psychiatric: Reports: No Symptoms Neurological: Reports: No Symptoms Hematologic/Lymphatic: Reports: No Symptoms Immunologic: Reports: No Symptoms Exam - Exam Exam: See Below - Vital Signs Vital Signs: Last Vital Signs Temp 97.7 F 08/31/17 15:50 Pulse 85 08/31/17 17:03 Resp 16 08/31/17 15:50 BP 110/57 L 08/31/17 17:03 Pulse Ox 93 L 08/31/17 17:03 Weight: 239 lb - Exam Quality Assessment: Supplemental Oxygen (4L nasal cannula), DVT Prophylaxis. No : Urinary Catheter General: Alert, Oriented, Cooperative, Mild Distress HEENT: PERRLA, Hearing Intact, Mucosa Moist & [place], Nares Patent, Normal Nasal Septum, Posterior Pharynx Clear, Conjunctiva Clear, EOMI, EACs Clear, TMs Clear Neck: Supple, Trachea Midline, 2 Lungs: Clear to Auscultation, Normal Respiratory Effort Cardiovascular: Regular Rate, Regular Rhythm GI/Abdominal Exam: Normal Bowel Sounds, Soft, Non-Tender, No Organomegaly, No Distention, No Abnormal Bruit, No Mass, Pelvis Stable (Female) Exam: Deferred Rectal (Female) Exam: Deferred Back Exam: Normal Inspection, Full Range of Motion, NT Extremities: Normal Inspection, Non-Tender, No Pedal Edema, Normal Capillary Refill, Limited Range of Motion (s/p R STELLA) Peripheral Pulses: 2+: Posterior Tibial (L), Posterior Tibial (R), Dorsalis Pedis (L), Dorsalis Pedis (R) Skin: Warm, Dry, Intact, Other (bandage dry and intact, no drainage) Neurological: Cranial Nerves Intact (grossly) Neuro Extensive - Mental Status: Alert, Oriented x3, Normal Mood/Affect, Normal Cognition Psychiatric: Alert, Normal Affect, Normal Mood Consult PN Assessment/Plan POD#: 0 Procedures: Procedures AGENT NOS ASSAY W/OPTIC (07/09/16) ASSAY OF FREE THYROXINE (06/29/13) ASSAY OF LIPASE (03/03/16) ASSAY OF NATRIURETIC PEPTIDE (03/03/16) ASSAY OF TROPONIN QUANT (06/03/16) ASSAY THYROID STIM HORMONE (06/29/13) BLOOD TYPING SEROLOGIC ABO (01/30/15) BLOOD TYPING SEROLOGIC RH(D) (01/30/15) C DIFF AMPLIFIED PROBE (07/09/16) CARDIOVASCULAR STRESS TEST (06/17/16) CHEST X-RAY 1 VIEW FRONTAL (03/03/16) COLONOSCOPY AND BIOPSY (07/09/16) COMP SCREEN MAMMOGRAM ADD-ON (06/21/13) COMPLETE CBC W/AUTO DIFF WBC (03/03/16) COMPREHEN METABOLIC PANEL (03/03/16) CREATINE MB FRACTION (03/03/16) CRYPTOSPORIDIUM AG IA (07/09/16) DXA BONE DENSITY AXIAL (08/14/17) EGD BIOPSY SINGLE/MULTIPLE (07/09/16) ELECTROCARDIOGRAM TRACING (03/03/16) EMERGENCY DEPT VISIT (03/03/16) EVALUATE PT USE OF INHALER (01/30/15) FIBRIN DEGRADATION QUANT (03/03/16) GIARDIA AG IA (07/09/16) GLUCOSE BLOOD TEST (01/30/15) HT MUSCLE IMAGE SPECT MULT (06/17/16) HYSTEROSCOPY BIOPSY (07/08/13) LEUKOCYTE ASSESSMENT FECAL (07/09/16) MAMMOGRAM SCREENING (06/21/13) RBC ANTIBODY SCREEN (01/30/15) ROUTINE VENIPUNCTURE (03/03/16) STOOL CULTR AEROBIC BACT EA (07/09/16) TISSUE EXAM BY PATHOLOGIST (07/09/16) TISSUE EXAM BY PATHOLOGIST (01/30/15) TISSUE EXAM BY PATHOLOGIST (12/11/14) URINALYSIS AUTO W/O SCOPE (06/29/13) URINALYSIS AUTO W/SCOPE (01/30/15) US EXAM PELVIC COMPLETE (06/21/13) VAGINAL HYSTERECTOMY (01/30/15) (1) Status post total replacement of right hip SNOMED Code(s): 967511358166, 897773234918 Code(s): Z96.641 - PRESENCE OF RIGHT ARTIFICIAL HIP JOINT Priority: High Current Visit: Yes (2) GERD (gastroesophageal reflux disease) SNOMED Code(s): 980473549 Code(s): K21.9 - GASTRO-ESOPHAGEAL REFLUX DISEASE WITHOUT ESOPHAGITIS Priority: Medium Current Visit: Yes Qualifiers: Esophagitis presence: esophagitis presence not specified Qualified Code(s) : K21.9 - Gastro-esophageal reflux disease without esophagitis (3) Hiatal hernia SNOMED Code(s): 19434345 Code(s): K44.9 - DIAPHRAGMATIC HERNIA WITHOUT OBSTRUCTION OR GANGRENE Priority: Low Current Visit: No (4) Fibromyalgia SNOMED Code(s): 245970798 Code(s): M79.7 - FIBROMYALGIA Priority: Low Current Visit: No (5) HLD (hyperlipidemia) SNOMED Code(s): 72812854 Code(s): E78.5 - HYPERLIPIDEMIA, UNSPECIFIED Priority: Low Current Visit : No Qualifiers: Hyperlipidemia type: unspecified Qualified Code(s): E78.5 - Hyperlipidemia , unspecified (6) Asthma SNOMED Code(s): 554588115 Code(s): J45.909 - UNSPECIFIED ASTHMA, UNCOMPLICATED Priority: Low Current Visit: No Qualifiers: Asthma complication type: unspecified (7) Anxiety disorder SNOMED Code(s): 021325800 Code(s): F41.9 - ANXIETY DISORDER, UNSPECIFIED Priority: Medium Current Visit: Yes Qualifiers: Anxiety disorder type: generalized anxiety disorder Qualified Code(s): F41.1 - Generalized anxiety disorder (8) Depression SNOMED Code(s): 09583023 Code(s): F32.9 - MAJOR DEPRESSIVE DISORDER, SINGLE EPISODE, UNSPECIFIED Priority: Medium Current Visit: No Qualifiers: Depression Type: unspecified Qualified Code(s): F32.9 - Major depressive disorder, single episode, unspecified (9) Diabetes mellitus type 2 in obese SNOMED Code(s): 97830961 Code(s): E11.9 - TYPE 2 DIABETES MELLITUS WITHOUT COMPLICATIONS; E66.9 - OBESITY, UNSPECIFIED Priority: High Current Visit: Yes (10) Hypertension SNOMED Code(s): 59444676 Code(s): I10 - ESSENTIAL (PRIMARY) HYPERTENSION Priority: Medium Current Visit: No Qualifiers: Hypertension type: unspecified Qualified Code(s): I10 - Essential (primary ) hypertension (11) Hypothyroidism SNOMED Code(s): 53844666 Code(s): E03.9 - HYPOTHYROIDISM, UNSPECIFIED Priority: Low Current Visit : No Qualifiers: Hypothyroidism type: unspecified Qualified Code(s): E03.9 - Hypothyroidism , unspecified (12) Obstructive sleep apnea on CPAP SNOMED Code(s): 53001554 Code(s): G47.33 - OBSTRUCTIVE SLEEP APNEA (ADULT) (PEDIATRIC) Priority: High Current Visit: Yes (13) Vitamin D deficiency SNOMED Code(s): 36429149 Code(s): E55.9 - VITAMIN D DEFICIENCY, UNSPECIFIED Priority: Low Current Visit: No Problem List Initiated/Reviewed/Updated: Yes My Orders Last 24 Hours: My Active Orders 08/31/17 Dinner ADA Diabetic [[employer] Diet] [DIET] Plan: I/P: Acute: S/P right total hip arthroplasty - post-operative day 0 -DVT prophylaxis and pain management per primary care team -PT/OT -IS/RT -Monitor oxygen saturation -Titrate oxygen as needed -Vital signs stable -Monitor labs -Pre-operative Hgb was 13.9 Osteoarthritis of hip -Pain management per primary care team Chronic: DM2 Sleep apnea w/ CPAP--> brought her own GERD Vitamin D deficiency Hiatal hernia Anxiety Fibromyalgia HLD HTN Seasonal allergies Asthma Hypothyroid Plan: CM for discharge planning GI prophylaxis: Pepcid DVT/PE prophylaxis: FAHAD ed[place]oe, SCD, ASA Home medications as indicated Other orders as listed above Routine AM labs She is a full code. Her PCP is Rosa Tello. Thank you for allowing us to participate in the care of this patient!!
[2017-08-31] MEDS: Acetaminophen/oxyCODONE 325-5 MG Tab PO PRN (18:17)
[2017-08-31] MEDS ORDERED: Insulin Detemir 100 Units/ML 3 ML Pen SUBCUT SCH (21:00)
[2017-08-31] MEDS: Famotidine 20 MG Tab PO SCH (21:46)
[2017-08-31] MEDS: Docusate Sodium 100 MG Cap PO SCH (21:46)
[2017-09-01] MEDS: ceFAZolin 2 GM in Premix Bag 1 BAG IV SCH ×2 (02:42→10:14)
--- NOTE | 2017-09-01 07:00 | PCM.CONSN ---
- General Info Date of Service: 09/01/17 Admission Dx/Problem (Free Text): Admission Diagnosis/Problem Admission Diagnosis/Problem Osteoarthritis of knee Subjective Update: In to see Shanna. She is lying in bed. She is doing well. Pain is controlled. She denies any concerns currently. No nursing concerns. Functional Status: Reports: Pain Controlled, Tolerating Diet, Ambulating, Urinating, Incentive Spirometry. Denies: New Symptoms - Review of Systems General: Reports: No Symptoms HEENT: Reports: No Symptoms Pulmonary: Reports: No Symptoms Cardiovascular: Reports: No Symptoms Gastrointestinal: Reports: No Symptoms 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: Reports: No Symptoms Musculoskeletal: Reports: Joint Pain Skin: Reports: No Symptoms Neurological: Reports: No Symptoms Psychiatric: Reports: No Symptoms - Patient Data Vitals - Most Recent: Last Vital Signs Temp 97.9 F 09/01/17 05:56 Pulse 94 09/01/17 05:56 Resp 16 09/01/17 05:56 BP 111/79 09/01/17 05:56 Pulse Ox 83 L 09/01/17 05:56 Weight - Most Recent: 248 lb I&O - Last 24 Hours: Intake & Output 08/31/17 09/01/17 09/01/17 22:59 06:59 14:59 Intake Total 300 1650 Output Total 800 Balance 300 850 Lab Results Last 24 Hours: Laboratory Results - last 24 hr 08/31/17 08/31/17 08/31/17 Range/Units 11:53 15:32 17:17 WBC (3.98-10.04) K/mm3 RBC (3.98-5.22) M/mm3 Hgb (11.2-15.7) gm/L Hct (34.1-44.9) % MCV (79.4-94.8) fl MCH (25.6-32.2) pg MCHC (32.2-35.5) g/dl RDW Std Deviation (36.4-46.3) fL Plt Count (182-369) K/mm3 MPV (9.4-12.3) fl POC Glucose 124 H 174 H 236 H (80-115) mg/dL 08/31/17 09/01/17 09/01/17 Range/Units 21:54 05:53 06:00 WBC 12.59 H (3.98-10.04) K/mm3 RBC 4.50 (3.98-5.22) M/mm3 Hgb 12.5 (11.2-15.7) gm/L Hct 38.7 (34.1-44.9) % MCV 86.0 (79.4-94.8) fl MCH 27.8 (25.6-32.2) pg MCHC 32.3 (32.2-35.5) g/dl RDW Std Deviation 42.0 (36.4-46.3) fL Plt Count 228 (182-369) K/mm3 MPV 10.2 (9.4-12.3) fl POC Glucose 193 H 279 H (80-115) mg/dL Med Orders - Current: Current Medications Albuterol (Proventil Hfa) 6.7 gm INH Q4H PRN PRN Reason: Shortness of Breath Aspirin (Ecotrin) 325 mg PO BID [facility] Bisacodyl (Dulcolax) 5 mg PO DAILY PRN PRN Reason: Constipation Cholecalciferol (Vitamin D3) 1,000 units PO DAILY [facility] Cyclobenzaprine HCl (Flexeril) 10 mg PO TID PRN PRN Reason: Spasms Docusate Sodium (Colace) 100 mg PO BID [facility] Last Admin: 08/31/17 21:46 Dose: 100 mg Duloxetine HCl (Cymbalta) 60 mg PO DAILY [facility] Famotidine (Pepcid) 20 mg PO Q12H [facility] Last Admin: 08/31/17 21:46 Dose: 20 mg Hydrochlorothiazide (Hydrochlorothiazide) 25 mg PO DAILY [facility] Lactated Ringer's (Ringers, Lactated) 1,000 mls @ 125 mls/hr IV ASDIRECTED [facility] Last Admin: 08/31/17 10:15 Dose: 125 mls/hr Cefazolin Sodium/Dextrose 2 gm (/ Premix) 50 mls @ 100 mls/hr IV Q8H [facility] Stop: 09/01/17 10:29 Last Admin: 09/01/17 02:42 Dose: 100 mls/hr Insulin Aspart (Novolog) 15 unit SUBCUT TIDAC [facility] Last Admin: 08/31/17 17:27 Dose: 15 units Insulin Detemir (Levemir) 50 unit SUBCUT BEDTIME [facility] Last Admin: 08/31/17 21:55 Dose: 50 units Ketorolac Tromethamine (Toradol) 15 mg IVPUSH Q6H PRN PRN Reason: Pain Last Admin: 08/31/17 21:47 Dose: 15 mg Levothyroxine Sodium (Levothyroxine) 25 mcg PO DAILY [facility] Magnesium Hydroxide (Milk Of Magnesia) 30 ml PO BID PRN PRN Reason: Constipation Metoprolol Succinate (Toprol Xl) 25 mg PO DAILY [facility] Morphine Sulfate (Morphine) 2 mg IVPUSH Q2H PRN PRN Reason: Breakthrough Pain Naloxone HCl (Narcan) 0.1 mg IVPUSH Q5M PRN PRN Reason: Oversedation Ondansetron HCl (Zofran) 4 mg IVPUSH Q6H PRN PRN Reason: Nausea/Vomiting Oxycodone/Acetaminophen (Percocet 325-5 Mg) 1 - 2 tab PO Q4H PRN PRN Reason: Pain Last Admin: 08/31/17 18:17 Dose: 2 tab Dulaglutide [ (Trulicity] 0.5 Ml) 0 each SUBCUT SA [facility] Saccharomyces Boulardii (Florastor) 250 mg PO DAILY [facility] Senna (Senna) 8.6 mg PO BID PRN PRN Reason: Constipation Sodium Chloride (Saline Flush) 10 ml FLUSH ASDIRECTED PRN PRN Reason: Keep Vein Open Discontinued Medications Acetaminophen (Tylenol) 975 mg PO ONETIME [facility] Last Admin: 08/31/17 11:50 Dose: 975 mg Albuterol (Proventil Neb Soln) 2.5 mg NEB ONETIME ONE Stop: 08/31/17 14:10 Last Admin: 08/31/17 14:54 Dose: 2.5 mg Atropine Sulfate (Atropine) Confirm Administered Dose 0.4 mg .ROUTE .STK-MED ONE Stop: 08/31/17 10:14 Bupivacaine HCl (Sensorcaine-Mpf 0.75%) Confirm Administered Dose 30 ml .ROUTE .STK-MED ONE Stop: 08/31/17 10:14 Bupivacaine HCl (Marcaine 0.25%) Confirm Administered Dose 30 ml .ROUTE .STK- MED ONE Stop: 08/31/17 10:22 Last Admin: 08/31/17 13:13 Dose: 30 ml Bupivacaine HCl (Marcaine 0.25%) Confirm Administered Dose 30 ml .ROUTE .STK- MED ONE Stop: 08/31/17 12:40 Bupivacaine HCl (Sensorcaine-Mpf 0.25%) Confirm Administered Dose 10 ml .ROUTE .STK-MED ONE Stop: 08/31/17 12:44 Last Admin: 08/31/17 13:40 Dose: 4 ml Cefazolin Sodium (Ancef) Confirm Administered Dose 2 gm .ROUTE .STK-MED ONE Stop: 08/31/17 10:14 Last Admin: 08/31/17 13:07 Dose: 2 gm Cefazolin Sodium (Ancef) Confirm Administered Dose 2 gm .ROUTE .STK-MED ONE Stop: 08/31/17 10:21 Morphine Sulfate 8 mg/Epinephrine HCl 0.3 mg/Cefuroxime Sodium 750 mg/Ketorolac Tromethamine 30 mg/Sodium Chloride 27.9 ml 0 mg .XX ONETIME ONE Stop: 08/31/17 06:57 Last Admin: 08/31/17 13:13 Dose: 788.3 mg Dexamethasone (Dexamethasone) Confirm Administered Dose 12 mg .ROUTE .STK-MED ONE Stop: 08/31/17 12:25 Dexamethasone (Dexamethasone) Confirm Administered Dose 4 mg .ROUTE .STK-MED ONE Stop: 08/31/17 12:46 Fentanyl (Sublimaze) Confirm Administered Dose 250 mcg .ROUTE .STK-MED ONE Stop: 08/31/17 10:49 Fentanyl (Sublimaze) 50 mcg IVPUSH Q5M PRN PRN Reason: pain Stop: 08/31/17 14:10 Last Admin: 08/31/17 14:18 Dose: 50 mcg Fentanyl (Sublimaze) Confirm Administered Dose 100 mcg .ROUTE .STK-MED ONE Stop: 08/31/17 14:16 Glycopyrrolate () Confirm Administered Dose 1 mg .ROUTE .STK-MED ONE Stop: 08/31/17 13:18 Hydromorphone HCl (Dilaudid) Confirm Administered Dose 0.5 mg .ROUTE .STK-MED ONE Stop: 08/31/17 10:49 Hydromorphone HCl (Dilaudid) Confirm Administered Dose 0.5 mg .ROUTE .STK-MED ONE Stop: 08/31/17 12:31 Hydromorphone HCl (Dilaudid) Confirm Administered Dose 0.5 mg .ROUTE .STK-MED ONE Stop: 08/31/17 13:00 Hydromorphone HCl (Dilaudid) 0.5 mg IVPUSH ONETIME PRN PRN Reason: Pain (severe 7-10) Stop: 08/31/17 14:10 Lactated Ringer's (Ringers, Lactated) Confirm Administered Dose 1,000 mls @ as directed .ROUTE .STK-MED ONE Stop: 08/31/17 13:55 Iodine (Iodine 2% Mild Tincture) Confirm Administered Dose 30 ml .ROUTE .STK- MED ONE Stop: 08/31/17 10:22 Last Admin: 08/31/17 13:06 Dose: 18 ml Ketorolac Tromethamine (Toradol) Confirm Administered Dose 30 mg .ROUTE .STK- MED ONE Stop: 08/31/17 09:44 Lidocaine/Sodium Bicarbonate (Buffered Lidocaine 1% In Ns 8.4%) 0.25 ml IDERM ONETIME PRN PRN Reason: Prior to IV Start Last Admin: 08/31/17 10:14 Dose: 0.25 ml Midazolam HCl (Versed 1 Mg/Ml) Confirm Administered Dose 2 mg .ROUTE .STK-MED ONE Stop: 08/31/17 09:45 Neostigmine Methylsulfate (Neostigmine) Confirm Administered Dose 5 mg .ROUTE .STK-MED ONE Stop: 08/31/17 13:18 Non-Formulary Medication (Cyanocobalamin/Folic Acid [Vitamin K44-Kzizj Acid]) 1 tab PO DAILY [facility] Ondansetron HCl (Zofran) Confirm Administered Dose 4 mg .ROUTE .STK-MED ONE Stop: 08/31/17 12:25 Oxycodone HCl (Oxycontin) 10 mg PO ONETIME [facility] Last Admin: 08/31/17 11:49 Dose: 10 mg Phenylephrine HCl (Phenylephrine In Ns 100 Mcg/Ml) Confirm Administered Dose 1 mg .ROUTE .STK-MED ONE Stop: 08/31/17 13:07 Pregabalin (Lyrica) 50 mg PO ONETIME [facility] Last Admin: 08/31/17 11:50 Dose: 50 mg Propofol (Diprivan 20 Ml) Confirm Administered Dose 600 mg .ROUTE .STK-MED ONE Stop: 08/31/17 09:45 Rocuronium [place] (Zemuron) Confirm Administered Dose 50 mg .ROUTE .STK-MED ONE Stop: 08/31/17 10:49 Ropivacaine (Naropin 0.5%) Confirm Administered Dose 30 ml .ROUTE .STK-MED ONE Stop: 08/31/17 07:43 Tranexamic Acid (Cyklokapron) Confirm Administered Dose 1,000 mg .ROUTE .STK- MED ONE Stop: 08/31/17 10:21 Last Admin: 08/31/17 13:21 Dose: 1,000 mg Triamcinolone Acetonide (Kenalog-40) Confirm Administered Dose 40 mg .ROUTE .STK -MED ONE Stop: 08/31/17 12:39 Last Admin: 08/31/17 13:40 Dose: 80 mg Vancomycin HCl (Vancomycin) Confirm Administered Dose 1 gm .ROUTE .STK-MED ONE Stop: 08/31/17 10:21 Last Admin: 08/31/17 13:15 Dose: 1 gm - Exam Quality Assessment: DVT Prophylaxis General: Alert, Oriented, Cooperative HEENT: Pupils Equal, Pupils Reactive, EOMI, Mucous Membr. Moist/[place] Neck: Supple, Trachea Midline, No JVD Lungs: Clear to Auscultation, Normal Respiratory Effort Cardiovascular: Regular Rate, Regular Rhythm GI/Abdominal Exam: Normal Bowel Sounds, Soft, Non-Tender, No Distention (Female) Exam: Deferred Back Exam: Normal Inspection, Full Range of Motion Extremities: No Pedal Edema, Normal Capillary Refill, Leg Pain, Limited Range of Motion, Other (Bandage on right leg. Cooling pack in place. ) Peripheral Pulses: 1+: Radial (L), Radial (R), Posterior Tibial (L), Posterior Tibial (R), Dorsalis Pedis (L), Dorsalis Pedis (R) Skin: Warm, Dry, Intact Wound/Incisions: Dressing Dry and Intact, No Drainage Neurological: No New Focal Deficit Psy/Mental Status: Alert, Normal Affect, Normal Mood Consult PN Assessment/Plan POD#: 1 Procedures: Procedures AGENT NOS ASSAY W/OPTIC (07/09/16) ASSAY OF FREE THYROXINE (06/29/13) ASSAY OF LIPASE (03/03/16) ASSAY OF NATRIURETIC PEPTIDE (03/03/16) ASSAY OF TROPONIN QUANT (06/03/16) ASSAY THYROID STIM HORMONE (06/29/13) BLOOD TYPING SEROLOGIC ABO (01/30/15) BLOOD TYPING SEROLOGIC RH(D) (01/30/15) C DIFF AMPLIFIED PROBE (07/09/16) CARDIOVASCULAR STRESS TEST (06/17/16) CHEST X-RAY 1 VIEW FRONTAL (03/03/16) COLONOSCOPY AND BIOPSY (07/09/16) COMP SCREEN MAMMOGRAM ADD-ON (06/21/13) COMPLETE CBC W/AUTO DIFF WBC (03/03/16) COMPREHEN METABOLIC PANEL (03/03/16) CREATINE MB FRACTION (03/03/16) CRYPTOSPORIDIUM AG IA (07/09/16) DXA BONE DENSITY AXIAL (08/14/17) EGD BIOPSY SINGLE/MULTIPLE (07/09/16) ELECTROCARDIOGRAM TRACING (03/03/16) EMERGENCY DEPT VISIT (03/03/16) EVALUATE PT USE OF INHALER (01/30/15) FIBRIN DEGRADATION QUANT (03/03/16) GIARDIA AG IA (07/09/16) GLUCOSE BLOOD TEST (01/30/15) HT MUSCLE IMAGE SPECT MULT (06/17/16) HYSTEROSCOPY BIOPSY (07/08/13) LEUKOCYTE ASSESSMENT FECAL (07/09/16) MAMMOGRAM SCREENING (06/21/13) RBC ANTIBODY SCREEN (01/30/15) ROUTINE VENIPUNCTURE (03/03/16) STOOL CULTR AEROBIC BACT EA (07/09/16) TISSUE EXAM BY PATHOLOGIST (07/09/16) TISSUE EXAM BY PATHOLOGIST (01/30/15) TISSUE EXAM BY PATHOLOGIST (12/11/14) URINALYSIS AUTO W/O SCOPE (06/29/13) URINALYSIS AUTO W/SCOPE (01/30/15) US EXAM PELVIC COMPLETE (06/21/13) VAGINAL HYSTERECTOMY (01/30/15) (1) Status post total replacement of right hip SNOMED Code(s): 652611669624, 220457108994 Code(s): Z96.641 - PRESENCE OF RIGHT ARTIFICIAL HIP JOINT Priority: High Current Visit: Yes (2) Osteoarthritis SNOMED Code(s): 923007372 Code(s): M19.90 - UNSPECIFIED OSTEOARTHRITIS, UNSPECIFIED SITE Current Visit: Yes Qualifiers: Osteoarthritis location: hip Osteoarthritis type: primary Laterality: right Qualified Code(s): M16.11 - Unilateral primary osteoarthritis, right hip (3) Anxiety disorder SNOMED Code(s): 910564426 Code(s): F41.9 - ANXIETY DISORDER, UNSPECIFIED Priority: Medium Current Visit: No Qualifiers: Anxiety disorder type: generalized anxiety disorder Qualified Code(s): F41.1 - Generalized anxiety disorder (4) Diabetes mellitus type 2 in obese SNOMED Code(s): 94214009 Code(s): E11.9 - TYPE 2 DIABETES MELLITUS WITHOUT COMPLICATIONS; E66.9 - OBESITY, UNSPECIFIED Priority: High Current Visit: Yes (5) GERD (gastroesophageal reflux disease) SNOMED Code(s): 036746455 Code(s): K21.9 - GASTRO-ESOPHAGEAL REFLUX DISEASE WITHOUT ESOPHAGITIS Priority: Medium Current Visit: Yes Qualifiers: Esophagitis presence: esophagitis presence not specified Qualified Code(s) : K21.9 - Gastro-esophageal reflux disease without esophagitis (6) Obstructive sleep apnea on CPAP SNOMED Code(s): 87847300 Code(s): G47.33 - OBSTRUCTIVE SLEEP APNEA (ADULT) (PEDIATRIC) Priority: High Current Visit: Yes (7) Asthma SNOMED Code(s): 671834673 Code(s): J45.909 - UNSPECIFIED ASTHMA, UNCOMPLICATED Priority: Low Current Visit: No Qualifiers: Asthma complication type: unspecified (8) HLD (hyperlipidemia) SNOMED Code(s): 78509384 Code(s): E78.5 - HYPERLIPIDEMIA, UNSPECIFIED Priority: Low Current Visit : No Qualifiers: Hyperlipidemia type: unspecified Qualified Code(s): E78.5 - Hyperlipidemia , unspecified (9) Hypertension SNOMED Code(s): 20987501 Code(s): I10 - ESSENTIAL (PRIMARY) HYPERTENSION Priority: Medium Current Visit: No Qualifiers: Hypertension type: unspecified Qualified Code(s): I10 - Essential (primary ) hypertension (10) Hypothyroidism SNOMED Code(s): 34767928 Code(s): E03.9 - HYPOTHYROIDISM, UNSPECIFIED Priority: Low Current Visit : No Qualifiers: Hypothyroidism type: unspecified Qualified Code(s): E03.9 - Hypothyroidism , unspecified (11) Vitamin D deficiency SNOMED Code(s): 07760975 Code(s): E55.9 - VITAMIN D DEFICIENCY, UNSPECIFIED Priority: Low Current Visit: No Problem List Initiated/Reviewed/Updated: Yes Plan: I/P: Acute: S/P right total hip arthroplasty - post-operative day 1 -DVT prophylaxis and pain management per primary care team -PT/OT -IS/RT -Monitor oxygen saturation -Titrate oxygen as needed -Vital signs stable -Monitor labs -Pre-operative Hgb was 13.9, now 12.5 -Pre-operative gfr was >90, now >60 Osteoarthritis of hip -Pain management per primary care team Chronic: DM2 Sleep apnea w/ CPAP--> brought her own GERD Vitamin D deficiency Hiatal hernia Anxiety Fibromyalgia HLD HTN Seasonal allergies Asthma Hypothyroid Plan: CM for discharge planning GI prophylaxis: Pepcid DVT/PE prophylaxis: FAHAD kaba, SCD, ASA Home medications as indicated Other orders as listed above Routine AM labs She is a full code. Her PCP is Rosa Tello. Thank you for allowing us to participate in the care of this patient!! From a hospitalist standpoint Sahnna is doing very well. Labs and vital signs have been stable. She has been working with PT/OT. No concerns from patient or nursing. She has urinated. She is cleared for discharge pending primary care team approval.
--- NOTE | 2017-09-01 08:00 | PCM.SURGPN ---
- General Info Date of Service: 09/01/17 POD#: 1 Functional Status: Reports: Pain Controlled, Tolerating Diet, Ambulating, Urinating, Incentive Spirometry, Other (Blood sugars are being monitored.) - Patient Data Vitals - Most Recent: Last Vital Signs Temp 97.9 F 09/01/17 05:56 Pulse 94 09/01/17 05:56 Resp 16 09/01/17 05:56 BP 111/79 09/01/17 05:56 Pulse Ox 83 L 09/01/17 05:56 Weight - Most Recent: 248 lb I&O - Last 24 Hours: Intake & Output 08/31/17 09/01/17 09/01/17 22:59 06:59 14:59 Intake Total 300 1650 Output Total 800 Balance 300 850 Lab Results Last 24 Hrs: Laboratory Results - last 24 hr 08/31/17 08/31/17 08/31/17 Range/Units 11:53 15:32 17:17 WBC (3.98-10.04) K/mm3 RBC (3.98-5.22) M/mm3 Hgb (11.2-15.7) gm/L Hct (34.1-44.9) % MCV (79.4-94.8) fl MCH (25.6-32.2) pg MCHC (32.2-35.5) g/dl RDW Std Deviation (36.4-46.3) fL Plt Count (182-369) K/mm3 MPV (9.4-12.3) fl Sodium (136-145) mEq/L Potassium (3.5-5.1) mEq/L Chloride (98-107) mEq/L Carbon Dioxide (21-32) mEq/L Anion Gap (5-15) BUN (7-18) mg/dL Creatinine (0.55-1.02) mg/dL Est Cr Clr Drug Dosing mL/min Estimated GFR (MDRD) (>60) mL/min BUN/Creatinine Ratio (14-18) Glucose (80-115) mg/dL POC Glucose 124 H 174 H 236 H (80-115) mg/dL Calcium (8.5-10.1) mg/dL Total Bilirubin (0.2-1.0) mg/dL AST (15-37) U/L ALT (14-59) U/L Alkaline Phosphatase (46-116) U/L Total Protein (6.4-8.2) g/dl Albumin (3.4-5.0) g/dl Globulin gm/dL Albumin/Globulin Ratio (1-2) 08/31/17 09/01/17 09/01/17 Range/Units 21:54 05:53 06:00 WBC 12.59 H (3.98-10.04) K/mm3 RBC 4.50 (3.98-5.22) M/mm3 Hgb 12.5 (11.2-15.7) gm/L Hct 38.7 (34.1-44.9) % MCV 86.0 (79.4-94.8) fl MCH 27.8 (25.6-32.2) pg MCHC 32.3 (32.2-35.5) g/dl RDW Std Deviation 42.0 (36.4-46.3) fL Plt Count 228 (182-369) K/mm3 MPV 10.2 (9.4-12.3) fl Sodium (136-145) mEq/L Potassium (3.5-5.1) mEq/L Chloride (98-107) mEq/L Carbon Dioxide (21-32) mEq/L Anion Gap (5-15) BUN (7-18) mg/dL Creatinine (0.55-1.02) mg/dL Est Cr Clr Drug Dosing mL/min Estimated GFR (MDRD) (>60) mL/min BUN/Creatinine Ratio (14-18) Glucose (80-115) mg/dL POC Glucose 193 H 279 H (80-115) mg/dL Calcium (8.5-10.1) mg/dL Total Bilirubin (0.2-1.0) mg/dL AST (15-37) U/L ALT (14-59) U/L Alkaline Phosphatase (46-116) U/L Total Protein (6.4-8.2) g/dl Albumin (3.4-5.0) g/dl Globulin gm/dL Albumin/Globulin Ratio (1-2) 09/01/17 Range/Units 06:00 WBC (3.98-10.04) K/mm3 RBC (3.98-5.22) M/mm3 Hgb (11.2-15.7) gm/L Hct (34.1-44.9) % MCV (79.4-94.8) fl MCH (25.6-32.2) pg MCHC (32.2-35.5) g/dl RDW Std Deviation (36.4-46.3) fL Plt Count (182-369) K/mm3 MPV (9.4-12.3) fl Sodium 137 (136-145) mEq/L Potassium 4.8 (3.5-5.1) mEq/L Chloride 101 (98-107) mEq/L Carbon Dioxide 25 (21-32) mEq/L Anion Gap 15.8 H (5-15) BUN 20 H (7-18) mg/dL Creatinine 0.9 (0.55-1.02) mg/dL Est Cr Clr Drug Dosing 47.15 mL/min Estimated GFR (MDRD) > 60 (>60) mL/min BUN/Creatinine Ratio 22.2 H (14-18) Glucose 285 H (80-115) mg/dL POC Glucose (80-115) mg/dL Calcium 8.8 (8.5-10.1) mg/dL Total Bilirubin 0.4 (0.2-1.0) mg/dL AST 29 (15-37) U/L ALT 44 (14-59) U/L Alkaline Phosphatase 54 (46-116) U/L Total Protein 7.1 (6.4-8.2) g/dl Albumin 2.9 L (3.4-5.0) g/dl Globulin 4.2 gm/dL Albumin/Globulin Ratio 0.7 L (1-2) Med Orders - Current: Current Medications Albuterol (Proventil Hfa) 6.7 gm INH Q4H PRN PRN Reason: Shortness of Breath Aspirin (Ecotrin) 325 mg PO BID [facility] Bisacodyl (Dulcolax) 5 mg PO DAILY PRN PRN Reason: Constipation Cholecalciferol (Vitamin D3) 1,000 units PO DAILY [facility] Cyclobenzaprine HCl (Flexeril) 10 mg PO TID PRN PRN Reason: Spasms Docusate Sodium (Colace) 100 mg PO BID [facility] Last Admin: 08/31/17 21:46 Dose: 100 mg Duloxetine HCl (Cymbalta) 60 mg PO DAILY [facility] Famotidine (Pepcid) 20 mg PO Q12H [facility] Last Admin: 08/31/17 21:46 Dose: 20 mg Hydrochlorothiazide (Hydrochlorothiazide) 25 mg PO DAILY [facility] Lactated Ringer's (Ringers, Lactated) 1,000 mls @ 125 mls/hr IV ASDIRECTED [facility] Last Admin: 08/31/17 10:15 Dose: 125 mls/hr Cefazolin Sodium/Dextrose 2 gm (/ Premix) 50 mls @ 100 mls/hr IV Q8H [facility] Stop: 09/01/17 10:29 Last Admin: 09/01/17 02:42 Dose: 100 mls/hr Insulin Aspart (Novolog) 15 unit SUBCUT TIDAC [facility] Last Admin: 08/31/17 17:27 Dose: 15 units Insulin Detemir (Levemir) 50 unit SUBCUT BEDTIME [facility] Last Admin: 08/31/17 21:55 Dose: 50 units Ketorolac Tromethamine (Toradol) 15 mg IVPUSH Q6H PRN PRN Reason: Pain Last Admin: 08/31/17 21:47 Dose: 15 mg Levothyroxine Sodium (Levothyroxine) 25 mcg PO DAILY [facility] Magnesium Hydroxide (Milk Of Magnesia) 30 ml PO BID PRN PRN Reason: Constipation Metoprolol Succinate (Toprol Xl) 25 mg PO DAILY [facility] Morphine Sulfate (Morphine) 2 mg IVPUSH Q2H PRN PRN Reason: Breakthrough Pain Naloxone HCl (Narcan) 0.1 mg IVPUSH Q5M PRN PRN Reason: Oversedation Ondansetron HCl (Zofran) 4 mg IVPUSH Q6H PRN PRN Reason: Nausea/Vomiting Oxycodone/Acetaminophen (Percocet 325-5 Mg) 1 - 2 tab PO Q4H PRN PRN Reason: Pain Last Admin: 08/31/17 18:17 Dose: 2 tab Dulaglutide [ (Trulicity] 0.5 Ml) 0 each SUBCUT SA [facility] Saccharomyces Boulardii (Florastor) 250 mg PO DAILY [facility] Senna (Senna) 8.6 mg PO BID PRN PRN Reason: Constipation Sodium Chloride (Saline Flush) 10 ml FLUSH ASDIRECTED PRN PRN Reason: Keep Vein Open Discontinued Medications Acetaminophen (Tylenol) 975 mg PO ONETIME [facility] Last Admin: 08/31/17 11:50 Dose: 975 mg Albuterol (Proventil Neb Soln) 2.5 mg NEB ONETIME ONE Stop: 08/31/17 14:10 Last Admin: 08/31/17 14:54 Dose: 2.5 mg Atropine Sulfate (Atropine) Confirm Administered Dose 0.4 mg .ROUTE .STK-MED ONE Stop: 08/31/17 10:14 Bupivacaine HCl (Sensorcaine-Mpf 0.75%) Confirm Administered Dose 30 ml .ROUTE .STK-MED ONE Stop: 08/31/17 10:14 Bupivacaine HCl (Marcaine 0.25%) Confirm Administered Dose 30 ml .ROUTE .STK- MED ONE Stop: 08/31/17 10:22 Last Admin: 08/31/17 13:13 Dose: 30 ml Bupivacaine HCl (Marcaine 0.25%) Confirm Administered Dose 30 ml .ROUTE .STK- MED ONE Stop: 08/31/17 12:40 Bupivacaine HCl (Sensorcaine-Mpf 0.25%) Confirm Administered Dose 10 ml .ROUTE .STK-MED ONE Stop: 08/31/17 12:44 Last Admin: 08/31/17 13:40 Dose: 4 ml Cefazolin Sodium (Ancef) Confirm Administered Dose 2 gm .ROUTE .STK-MED ONE Stop: 08/31/17 10:14 Last Admin: 08/31/17 13:07 Dose: 2 gm Cefazolin Sodium (Ancef) Confirm Administered Dose 2 gm .ROUTE .STK-MED ONE Stop: 08/31/17 10:21 Morphine Sulfate 8 mg/Epinephrine HCl 0.3 mg/Cefuroxime Sodium 750 mg/Ketorolac Tromethamine 30 mg/Sodium Chloride 27.9 ml 0 mg .XX ONETIME ONE Stop: 08/31/17 06:57 Last Admin: 08/31/17 13:13 Dose: 788.3 mg Dexamethasone (Dexamethasone) Confirm Administered Dose 12 mg .ROUTE .STK-MED ONE Stop: 08/31/17 12:25 Dexamethasone (Dexamethasone) Confirm Administered Dose 4 mg .ROUTE .STK-MED ONE Stop: 08/31/17 12:46 Fentanyl (Sublimaze) Confirm Administered Dose 250 mcg .ROUTE .STK-MED ONE Stop: 08/31/17 10:49 Fentanyl (Sublimaze) 50 mcg IVPUSH Q5M PRN PRN Reason: pain Stop: 08/31/17 14:10 Last Admin: 08/31/17 14:18 Dose: 50 mcg Fentanyl (Sublimaze) Confirm Administered Dose 100 mcg .ROUTE .STK-MED ONE Stop: 08/31/17 14:16 Glycopyrrolate () Confirm Administered Dose 1 mg .ROUTE .STK-MED ONE Stop: 08/31/17 13:18 Hydromorphone HCl (Dilaudid) Confirm Administered Dose 0.5 mg .ROUTE .STK-MED ONE Stop: 08/31/17 10:49 Hydromorphone HCl (Dilaudid) Confirm Administered Dose 0.5 mg .ROUTE .STK-MED ONE Stop: 08/31/17 12:31 Hydromorphone HCl (Dilaudid) Confirm Administered Dose 0.5 mg .ROUTE .STK-MED ONE Stop: 08/31/17 13:00 Hydromorphone HCl (Dilaudid) 0.5 mg IVPUSH ONETIME PRN PRN Reason: Pain (severe 7-10) Stop: 08/31/17 14:10 Lactated Ringer's (Ringers, Lactated) Confirm Administered Dose 1,000 mls @ as directed .ROUTE .STK-MED ONE Stop: 08/31/17 13:55 Iodine (Iodine 2% Mild Tincture) Confirm Administered Dose 30 ml .ROUTE .STK- MED ONE Stop: 08/31/17 10:22 Last Admin: 08/31/17 13:06 Dose: 18 ml Ketorolac Tromethamine (Toradol) Confirm Administered Dose 30 mg .ROUTE .STK- MED ONE Stop: 08/31/17 09:44 Lidocaine/Sodium Bicarbonate (Buffered Lidocaine 1% In Ns 8.4%) 0.25 ml IDERM ONETIME PRN PRN Reason: Prior to IV Start Last Admin: 08/31/17 10:14 Dose: 0.25 ml Midazolam HCl (Versed 1 Mg/Ml) Confirm Administered Dose 2 mg .ROUTE .STK-MED ONE Stop: 08/31/17 09:45 Neostigmine Methylsulfate (Neostigmine) Confirm Administered Dose 5 mg .ROUTE .STK-MED ONE Stop: 08/31/17 13:18 Non-Formulary Medication (Cyanocobalamin/Folic Acid [Vitamin O81-Dlmuo Acid]) 1 tab PO DAILY [facility] Ondansetron HCl (Zofran) Confirm Administered Dose 4 mg .ROUTE .STK-MED ONE Stop: 08/31/17 12:25 Oxycodone HCl (Oxycontin) 10 mg PO ONETIME [facility] Last Admin: 08/31/17 11:49 Dose: 10 mg Phenylephrine HCl (Phenylephrine In Ns 100 Mcg/Ml) Confirm Administered Dose 1 mg .ROUTE .STK-MED ONE Stop: 08/31/17 13:07 Pregabalin (Lyrica) 50 mg PO ONETIME [facility] Last Admin: 08/31/17 11:50 Dose: 50 mg Propofol (Diprivan 20 Ml) Confirm Administered Dose 600 mg .ROUTE .STK-MED ONE Stop: 08/31/17 09:45 Rocuronium Brick (Zemuron) Confirm Administered Dose 50 mg .ROUTE .STK-MED ONE Stop: 08/31/17 10:49 Ropivacaine (Naropin 0.5%) Confirm Administered Dose 30 ml .ROUTE .STK-MED ONE Stop: 08/31/17 07:43 Tranexamic Acid (Cyklokapron) Confirm Administered Dose 1,000 mg .ROUTE .STK- MED ONE Stop: 08/31/17 10:21 Last Admin: 08/31/17 13:21 Dose: 1,000 mg Triamcinolone Acetonide (Kenalog-40) Confirm Administered Dose 40 mg .ROUTE .STK -MED ONE Stop: 08/31/17 12:39 Last Admin: 08/31/17 13:40 Dose: 80 mg Vancomycin HCl (Vancomycin) Confirm Administered Dose 1 gm .ROUTE .STK-MED ONE Stop: 08/31/17 10:21 Last Admin: 08/31/17 13:15 Dose: 1 gm - Exam Wound/Incisions: Dressing Dry and Intact General: Alert, Cooperative, No Acute Distress Lungs: Normal Respiratory Effort Extremities: Other (NVS intact for BLE. Nima's negative for RLE.) - Problem List Review Problem List Initiated/Reviewed/Updated: Yes - My Orders Last 24 Hours: Active Orders 24 hr Category Date Time Status Blood Glucose Check, Bedside [RC] QIDACANDBED Care 08/31/17 18:42 Active Communication Order [RC] ASDIRECTED Care 08/31/17 14:14 Inactive Communication Order [RC] ROUTINE Care 08/31/17 14:15 Active Cooling Warming Measures [RC] ASDIRECTED Care 08/31/17 14:16 Active Notify Provider [RC] ASDIRECTED Care 08/31/17 14:14 Active Notify Provider [RC] ASDIRECTED Care 08/31/17 14:16 Active Pulse Oximetry [RC] ASDIRECTED Care 08/31/17 14:14 Active Pulse Oximetry [RC] ASDIRECTED Care 08/31/17 14:16 Active RT Aerosol Therapy [RC] ASDIRECTED Care 08/31/17 14:10 Active ADA Diabetic [[place] [employer] Diet] [DIET Diet 08/31/17 Dinner Active ] Albuterol [Proventil HFA] Med 08/31/17 14:00 Active 6.7 gm INH Q4H PRN Aspirin [Ecotrin] Med 09/01/17 09:00 Active 325 mg PO BID Cholecalciferol (Vitamin D3) [Vitamin D3] Med 09/01/17 09:00 Active 1,000 units PO DAILY DULoxetine [Cymbalta] Med 09/01/17 09:00 Active 60 mg PO DAILY Docusate Sodium [Colace] Med 08/31/17 21:00 Active 100 mg PO BID Famotidine [Pepcid] Med 08/31/17 21:00 Active 20 mg PO Q12H Hydrochlorothiazide Med 09/01/17 09:00 Active 25 mg PO DAILY Insulin Aspart [NovoLOG] Med 08/31/17 17:00 Active 15 unit SUBCUT TIDAC Insulin Detemir [Levemir] Med 08/31/17 21:00 Active 50 unit SUBCUT BEDTIME Levothyroxine Med 09/01/17 09:00 Active 25 mcg PO DAILY Metoprolol Succinate [Toprol XL] Med 09/01/17 09:00 Active 25 mg PO DAILY Patient's Own Medication [Ptom] Med 09/05/17 14:00 Active 0 each SUBCUT SA Saccharomyces Boulardii [Florastor] Med 09/01/17 09:00 Active 250 mg PO DAILY ceFAZolin [Ancef] 2 gm Med 08/31/17 18:00 Active Premix Bag 1 bag IV Q8H Medication Orders Albuterol (Proventil Hfa) 6.7 gm INH Q4H PRN PRN Reason: Shortness of Breath Aspirin (Ecotrin) 325 mg PO BID [facility] Bisacodyl (Dulcolax) 5 mg PO DAILY PRN PRN Reason: Constipation Cholecalciferol (Vitamin D3) 1,000 units PO DAILY [facility] Cyclobenzaprine HCl (Flexeril) 10 mg PO TID PRN PRN Reason: Spasms Docusate Sodium (Colace) 100 mg PO BID [facility] Last Admin: 08/31/17 21:46 Dose: 100 mg Duloxetine HCl (Cymbalta) 60 mg PO DAILY [facility] Famotidine (Pepcid) 20 mg PO Q12H [facility] Last Admin: 08/31/17 21:46 Dose: 20 mg Hydrochlorothiazide (Hydrochlorothiazide) 25 mg PO DAILY [facility] Lactated Ringer's (Ringers, Lactated) 1,000 mls @ 125 mls/hr IV ASDIRECTED [facility] Last Admin: 08/31/17 10:15 Dose: 125 mls/hr Cefazolin Sodium/Dextrose 2 gm (/ Premix) 50 mls @ 100 mls/hr IV Q8H [facility] Stop: 09/01/17 10:29 Last Admin: 09/01/17 02:42 Dose: 100 mls/hr Infusion: 08/31/17 18:01 Dose: 100 mls/hr Admin: 08/31/17 17:31 Dose: 100 mls/hr Insulin Aspart (Novolog) 15 unit SUBCUT TIDAC [facility] Last Admin: 08/31/17 17:27 Dose: 15 units Insulin Detemir (Levemir) 50 unit SUBCUT BEDTIME [facility] Last Admin: 08/31/17 21:55 Dose: 50 units Ketorolac Tromethamine (Toradol) 15 mg IVPUSH Q6H PRN PRN Reason: Pain Last Admin: 08/31/17 21:47 Dose: 15 mg Levothyroxine Sodium (Levothyroxine) 25 mcg PO DAILY [facility] Magnesium Hydroxide (Milk Of Magnesia) 30 ml PO BID PRN PRN Reason: Constipation Metoprolol Succinate (Toprol Xl) 25 mg PO DAILY [facility] Morphine Sulfate (Morphine) 2 mg IVPUSH Q2H PRN PRN Reason: Breakthrough Pain Naloxone HCl (Narcan) 0.1 mg IVPUSH Q5M PRN PRN Reason: Oversedation Ondansetron HCl (Zofran) 4 mg IVPUSH Q6H PRN PRN Reason: Nausea/Vomiting Oxycodone/Acetaminophen (Percocet 325-5 Mg) 1 - 2 tab PO Q4H PRN PRN Reason: Pain Last Admin: 08/31/17 18:17 Dose: 2 tab Dulaglutide [ (Trulicity] 0.5 Ml) 0 each SUBCUT [facility] Saccharomyces Boulardii (Florastor) 250 mg PO DAILY [facility] Senna (Senna) 8.6 mg PO BID PRN PRN Reason: Constipation Sodium Chloride (Saline Flush) 10 ml FLUSH ASDIRECTED PRN PRN Reason: Keep Vein Open - Assessment Assessment (Free Text/Narrative):: POD#1 - right TKA with left knee cortisone injection - Plan Plan (Free Text/Narrative):: 1. Hgb 12.5 2. Frequent mobility, TEDs, 325mg ASA BID for VTE prophylaxis. 3. Discharge to home today if cleared by Hospitalist service and meets inpt goals. 4. Close monitoring of blood sugars discussed. The pt's case was discussed with Dr. Solis.
[2017-09-01] MEDS: Insulin Aspart 100 Units/ML 3 ML Pen SUBCUT SCH ×2 (08:13→12:11)
[2017-09-01] MEDS: Acetaminophen/oxyCODONE 325-5 MG Tab PO PRN ×2 (08:15→12:12)
[2017-09-01] MEDS ORDERED: Aspirin 325 MG Tab.EC PO SCH (09:00)
[2017-09-01] MEDS ORDERED: FOLIC ACID PO SCH (09:00)
[2017-09-01] MEDS ORDERED: CYANOCOBALAMIN PO SCH (09:00)
[2017-09-01] MEDS ORDERED: Hydrochlorothiazide 25 MG Tab PO SCH (09:00)
[2017-09-01] MEDS ORDERED: DULoxetine 30 MG Cap PO SCH (09:00)
[2017-09-01] MEDS ORDERED: Cholecalciferol (Vitamin D3) 5,000 UNIT Tab PO SCH (09:00)
[2017-09-01] MEDS ORDERED: [UNRECOGNIZED DRUG - OTHER] PO SCH (09:00)
[2017-09-01] MEDS ORDERED: Cholecalciferol (Vitamin D3) 1,000 Unit Tab PO SCH (09:00)
[2017-09-01] MEDS ORDERED: Levothyroxine 25 MCG Tab PO SCH ×2 (09:00→10:45)
[2017-09-01] MEDS ORDERED: Metoprolol Succinate 25 MG Tab.ER PO SCH (09:00)
[2017-09-01] MEDS ORDERED: Saccharomyces Boulardii (Probiotic) 250 MG Cap PO SCH (09:00)
[2017-09-01] MEDS: Famotidine 20 MG Tab PO SCH (10:11)
[2017-09-01] MEDS: Docusate Sodium 100 MG Cap PO SCH (10:11)
--- NOTE | 2017-09-01 10:21 | PCM48HPAN ---
Post Anesthesia Note - EVALUATION WITHIN 48HRS OF ANESTHETIC Vital Signs in Normal Range: Yes Patient Participated in Evaluation: Yes Respiratory Function Stable: Yes Airway Patent: Yes Cardiovascular Function Stable: Yes Hydration Status Stable: Yes Pain Control Satisfactory: Yes Nausea and Vomiting Control Satisfactory: Yes Mental Status Recovered: Yes - COMMENTS/OBSERVATIONS Free Text/Narrative:: Patient denies any anesthetic complications
[2017-09-01 13:41] VITALS: BP 120/50
--- NOTE | 2017-09-02 09:34 | PCM.DCSUM1 ---
Discharge Summary - Hospital Course Brief History: Shanna is a 62 yo female who underwent right TKA with Dr. Solis on . The procedure was completed under general anesthesia. The pt tolerated the procedure well and was admitted to the Medical-Surgical Unit. The pt received Ancef saumya-operatively. She participated in P.T. and O.T. and progressed well. She was allowed to WBAT and used a FWW for mobility. The pt' s surgical wound was dressed with a Mepilex dressing and remained clean and dry. On POD#1, the pt was started on 325mg ASA BID for VTE prophylaxis. The pt used TEDs and SCDs also. On POD#1, the pt's hemoglobin was 12.5. Medical management was provided by the Hospitalist service and the pt's hospital course was uneventful. Blood sugars were closely monitored. On POD#2, the pt was deemed appropriate for discharge to home with her . - Discharge Data Discharge Date: 09/01/17 Discharge Disposition: Home, Self-Care 01 Condition: Good - Patient Summary/Data Operative Procedure(s) Performed: right total knee arthroplasty with left knee corticosteroid injection Consults: Consultations 08/31/ 06:56 OT Evaluation and Treatment [CONS] Routine PT Evaluation and Treatment [CONS] Routine 08/31/17 06:57 Consult to Physician [CONS] Routine - Patient Instructions Diet: Usual Diet as Tolerated Activity: Apply Ice, As Tolerated, Elevate Extremity, Full Weight Bearing Driving: Do Not Drive Showering/Bathing: May Shower Wound/Incision Care: Keep Operative Site/Wound Site Clean and Dry, Do NOT Change Dressing Notify Provider of: Fever, Increased Pain, Swelling and Redness, Drainage, Nausea and/or Vomiting Other/Special Instructions: Please get up and moving around every hour while awake. This helps to prevent blood clots. Please use your walker and have help with mobility as needed. Please take 325mg Aspirin TWICE daily. The aspirin is being used for blood clot prevention and not for pain management so please do not miss a dose of the medication. At home, please complete the exercises that you learned during the Hospital stay. Schedule for physical therapy. Use the pain medication as needed. The medication may cause drowsiness and constipation. Contact your primary care provider for instructions if you are constipated. You may use a stool softener like docusate sodium or Colace 100mg twice daily and/or a laxative like Miralax daily for constipation. Increase your water and fiber intake while you are using the pain medication. Please try to wean from use of the pain medication as soon as able. Wear the FAHAD hose during the day and you may remove these at night. Elevate the limb to decrease swelling. Place ice to the area often. Place a towel between your skin and the blue pad. Use the incentive spirometer often. Take deep breaths throughout the day. Increase your protein intake while you are healing. Because you have diabetes, please closely monitor your blood sugars and notify your primary care provider with abnormal values. Call the Clinic with questions or concerns - [phone]. - Discharge Plan Prescriptions/Med Rec: Acetaminophen/oxyCODONE [Percocet 325-5 MG] 1 - 2 tab PO Q6H PRN #60 tablet PRN Reason: Pain Aspirin [Ecotrin] 325 mg PO BID #84 tab.ec Home Medications: Home Meds Metoprolol Succinate [Toprol XL] 25 mg PO DAILY 07/07/13 [History] Albuterol [Proventil HFA] 6.7 gm INH Q4H PRN 01/29/15 [History] DULoxetine HCl [Cymbalta] 60 mg PO DAILY 01/29/15 [History] Hydrochlorothiazide 25 mg PO DAILY 01/29/15 [History] Insulin Detemir [Levemir] 50 unit SUBCUT BEDTIME 01/29/15 [History] Dulaglutide [Trulicity] 0.5 ml SQ SA 08/28/17 [History] Insulin Lispro [Humalog Kwikpen U-100] 15 units SQ TIDAC 08/28/17 [History] Acetaminophen/oxyCODONE [Percocet 325-5 MG] 1 - 2 tab PO Q6H PRN #60 tablet 02/07 [Rx] Aspirin [Ecotrin] 325 mg PO BID #84 tab.ec 08/31/17 [Rx] Bisacodyl [Dulcolax] 5 mg PO DAILY PRN tablet 08/31/17 [Rx] Cholecalciferol (Vitamin D3) [Vitamin D3] 5,000 units PO DAILY 08/31/17 [History ] Cyanocobalamin (Vitamin B12) [Vitamin B13] 500 mcg PO DAILY 08/31/17 [History] Docusate Sodium [Colace] 100 mg PO BID cap 08/31/17 [Rx] Famotidine [Pepcid] 20 mg PO Q12H tablet 08/31/17 [Rx] Lactobacillus Rhamnosus GG [Culturelle] 1 cap PO 08/31/17 [History] Magnesium Hydroxide [Milk of Magnesia] 30 ml PO BID PRN cup 08/31/17 [Rx] Sennosides [Senna] 8.6 mg PO BID PRN tablet 08/31/17 [Rx] Levothyroxine 25 mcg PO ACBREAKFAST 09/01/17 [History] Patient Handouts: Total Knee Replacement, Care After, [id number] Referrals: Alisha Menon PA-C [Physician Push Bench Operator Helper] - - Patient Data Vitals - Most Recent: Last Vital Signs Temp 98.4 F 09/01/17 13:01 Pulse 94 09/01/17 13:01 Resp 16 09/01/17 13:01 BP 120/50 L 09/01/17 13:01 Pulse Ox 96 09/01/17 13:01 Weight - Most Recent: 248 lb I&O - Last 24 hours: Intake & Output 09/01/17 09/02/17 09/02/17 22:59 06:59 14:59 Intake Total 240 Balance 240 Lab Results - Last 24 hrs: Laboratory Results - last 24 hr 09/01/17 Range/Units 12:05 POC Glucose 217 H (80-115) mg/dL Med Orders - Current: Current Medications Discontinued Medications Acetaminophen (Tylenol) 975 mg PO ONETIME [facility] Last Admin: 08/31/17 11:50 Dose: 975 mg Albuterol (Proventil Hfa) 6.7 gm INH Q4H PRN PRN Reason: Shortness of Breath Albuterol (Proventil Neb Soln) 2.5 mg NEB ONETIME ONE Stop: 08/31/17 14:10 Last Admin: 08/31/17 14:54 Dose: 2.5 mg Aspirin (Ecotrin) 325 mg PO BID [facility] Last Admin: 09/01/17 10:11 Dose: 325 mg Atropine Sulfate (Atropine) Confirm Administered Dose 0.4 mg .ROUTE .STK-MED ONE Stop: 08/31/17 10:14 Bisacodyl (Dulcolax) 5 mg PO DAILY PRN PRN Reason: Constipation Bupivacaine HCl (Sensorcaine-Mpf 0.75%) Confirm Administered Dose 30 ml .ROUTE .STK-MED ONE Stop: 08/31/17 10:14 Bupivacaine HCl (Marcaine 0.25%) Confirm Administered Dose 30 ml .ROUTE .STK- MED ONE Stop: 08/31/17 10:22 Last Admin: 08/31/17 13:13 Dose: 30 ml Bupivacaine HCl (Marcaine 0.25%) Confirm Administered Dose 30 ml .ROUTE .STK- MED ONE Stop: 08/31/17 12:40 Bupivacaine HCl (Sensorcaine-Mpf 0.25%) Confirm Administered Dose 10 ml .ROUTE .STK-MED ONE Stop: 08/31/17 12:44 Last Admin: 08/31/17 13:40 Dose: 4 ml Cefazolin Sodium (Ancef) Confirm Administered Dose 2 gm .ROUTE .STK-MED ONE Stop: 08/31/17 10:14 Last Admin: 08/31/17 13:07 Dose: 2 gm Cefazolin Sodium (Ancef) Confirm Administered Dose 2 gm .ROUTE .STK-MED ONE Stop: 08/31/17 10:21 Cholecalciferol (Vitamin D3) 1,000 units PO DAILY [facility] Last Admin: 09/01/17 10:12 Dose: 1,000 units Cholecalciferol (Vitamin D3) 5,000 unit PO DAILY [facility] Morphine Sulfate 8 mg/Epinephrine HCl 0.3 mg/Cefuroxime Sodium 750 mg/Ketorolac Tromethamine 30 mg/Sodium Chloride 27.9 ml 0 mg .XX ONETIME ONE Stop: 08/31/17 06:57 Last Admin: 08/31/17 13:13 Dose: 788.3 mg Cyclobenzaprine HCl (Flexeril) 10 mg PO TID PRN PRN Reason: Spasms Dexamethasone (Dexamethasone) Confirm Administered Dose 12 mg .ROUTE .STK-MED ONE Stop: 08/31/17 12:25 Dexamethasone (Dexamethasone) Confirm Administered Dose 4 mg .ROUTE .STK-MED ONE Stop: 08/31/17 12:46 Docusate Sodium (Colace) 100 mg PO BID [facility] Last Admin: 09/01/17 10:11 Dose: 100 mg Duloxetine HCl (Cymbalta) 60 mg PO DAILY [facility] Last Admin: 09/01/17 10:11 Dose: 60 mg Famotidine (Pepcid) 20 mg PO Q12H [facility] Last Admin: 09/01/17 10:11 Dose: 20 mg Fentanyl (Sublimaze) Confirm Administered Dose 250 mcg .ROUTE .STK-MED ONE Stop: 08/31/17 10:49 Fentanyl (Sublimaze) 50 mcg IVPUSH Q5M PRN PRN Reason: pain Stop: 08/31/17 14:10 Last Admin: 08/31/17 14:18 Dose: 50 mcg Fentanyl (Sublimaze) Confirm Administered Dose 100 mcg .ROUTE .STK-MED ONE Stop: 08/31/17 14:16 Glycopyrrolate () Confirm Administered Dose 1 mg .ROUTE .STK-MED ONE Stop: 08/31/17 13:18 Hydrochlorothiazide (Hydrochlorothiazide) 25 mg PO DAILY [facility] Last Admin: 09/01/17 10:11 Dose: 25 mg Hydromorphone HCl (Dilaudid) Confirm Administered Dose 0.5 mg .ROUTE .STK-MED ONE Stop: 08/31/17 10:49 Hydromorphone HCl (Dilaudid) Confirm Administered Dose 0.5 mg .ROUTE .STK-MED ONE Stop: 08/31/17 12:31 Hydromorphone HCl (Dilaudid) Confirm Administered Dose 0.5 mg .ROUTE .STK-MED ONE Stop: 08/31/17 13:00 Hydromorphone HCl (Dilaudid) 0.5 mg IVPUSH ONETIME PRN PRN Reason: Pain (severe 7-10) Stop: 08/31/17 14:10 Lactated Ringer's (Ringers, Lactated) 1,000 mls @ 125 mls/hr IV ASDIRECTED [facility] Last Admin: 08/31/17 10:15 Dose: 125 mls/hr Cefazolin Sodium/Dextrose 2 gm (/ Premix) 50 mls @ 100 mls/hr IV Q8H [facility] Stop: 09/01/17 10:29 Last Admin: 09/01/17 10:14 Dose: 100 mls/hr Lactated Ringer's (Ringers, Lactated) Confirm Administered Dose 1,000 mls @ as directed .ROUTE .STK-MED ONE Stop: 08/31/17 13:55 Insulin Aspart (Novolog) 15 unit SUBCUT TIDAC [facility] Last Admin: 09/01/17 12:11 Dose: 15 units Insulin Detemir (Levemir) 50 unit SUBCUT BEDTIME [facility] Last Admin: 08/31/17 21:55 Dose: 50 units Iodine (Iodine 2% Mild Tincture) Confirm Administered Dose 30 ml .ROUTE .STK- MED ONE Stop: 08/31/17 10:22 Last Admin: 08/31/17 13:06 Dose: 18 ml Ketorolac Tromethamine (Toradol) 15 mg IVPUSH Q6H PRN PRN Reason: Pain Last Admin: 08/31/17 21:47 Dose: 15 mg Ketorolac Tromethamine (Toradol) Confirm Administered Dose 30 mg .ROUTE .STK- MED ONE Stop: 08/31/17 09:44 Levothyroxine Sodium (Levothyroxine) 25 mcg PO DAILY [facility] Last Admin: 09/01/17 10:32 Dose: Not Given Levothyroxine Sodium (Levothyroxine) 250 mcg PO ACBREAKFAST [facility] Last Admin: 09/01/17 10:31 Dose: Not Given Levothyroxine Sodium (Levothyroxine) 25 mcg PO ACBREAKFAST [facility] Last Admin: 09/01/17 10:42 Dose: 25 mcg Lidocaine/Sodium Bicarbonate (Buffered Lidocaine 1% In Ns 8.4%) 0.25 ml IDERM ONETIME PRN PRN Reason: Prior to IV Start Last Admin: 08/31/17 10:14 Dose: 0.25 ml Magnesium Hydroxide (Milk Of Magnesia) 30 ml PO BID PRN PRN Reason: Constipation Metoprolol Succinate (Toprol Xl) 25 mg PO DAILY [facility] Last Admin: 09/01/17 10:11 Dose: 25 mg Midazolam HCl (Versed 1 Mg/Ml) Confirm Administered Dose 2 mg .ROUTE .STK-MED ONE Stop: 08/31/17 09:45 Morphine Sulfate (Morphine) 2 mg IVPUSH Q2H PRN PRN Reason: Breakthrough Pain Naloxone HCl (Narcan) 0.1 mg IVPUSH Q5M PRN PRN Reason: Oversedation Neostigmine Methylsulfate (Neostigmine) Confirm Administered Dose 5 mg .ROUTE .STK-MED ONE Stop: 08/31/17 13:18 Non-Formulary Medication (Cyanocobalamin/Folic Acid [Vitamin U91-Fwqsy Acid]) 1 tab PO DAILY [facility] Ondansetron HCl (Zofran) 4 mg IVPUSH Q6H PRN PRN Reason: Nausea/Vomiting Ondansetron HCl (Zofran) Confirm Administered Dose 4 mg .ROUTE .STK-MED ONE Stop: 08/31/17 12:25 Oxycodone HCl (Oxycontin) 10 mg PO ONETIME [facility] Last Admin: 08/31/17 11:49 Dose: 10 mg Oxycodone/Acetaminophen (Percocet 325-5 Mg) 1 - 2 tab PO Q4H PRN PRN Reason: Pain Last Admin: 09/01/17 12:12 Dose: 2 tab Dulaglutide [ (Trulicity] 0.5 Ml) 0 each SUBCUT SA [facility] Phenylephrine HCl (Phenylephrine In Ns 100 Mcg/Ml) Confirm Administered Dose 1 mg .ROUTE .STK-MED ONE Stop: 08/31/17 13:07 Pregabalin (Lyrica) 50 mg PO ONETIME [facility] Last Admin: 08/31/17 11:50 Dose: 50 mg Propofol (Diprivan 20 Ml) Confirm Administered Dose 600 mg .ROUTE .STK-MED ONE Stop: 08/31/17 09:45 Rocuronium Andreas (Zemuron) Confirm Administered Dose 50 mg .ROUTE .STK-MED ONE Stop: 08/31/17 10:49 Ropivacaine (Naropin 0.5%) Confirm Administered Dose 30 ml .ROUTE .STK-MED ONE Stop: 08/31/17 07:43 Saccharomyces Boulardii (Florastor) 250 mg PO DAILY [facility] Last Admin: 09/01/17 10:11 Dose: 250 mg Senna (Senna) 8.6 mg PO BID PRN PRN Reason: Constipation Sodium Chloride (Saline Flush) 10 ml FLUSH ASDIRECTED PRN PRN Reason: Keep Vein Open Tranexamic Acid (Cyklokapron) Confirm Administered Dose 1,000 mg .ROUTE .STK- MED ONE Stop: 08/31/17 10:21 Last Admin: 08/31/17 13:21 Dose: 1,000 mg Triamcinolone Acetonide (Kenalog-40) Confirm Administered Dose 40 mg .ROUTE .STK -MED ONE Stop: 08/31/17 12:39 Last Admin: 08/31/17 13:40 Dose: 80 mg Vancomycin HCl (Vancomycin) Confirm Administered Dose 1 gm .ROUTE .STK-MED ONE Stop: 08/31/17 10:21 Last Admin: 08/31/17 13:15 Dose: 1 gm
--- NOTE | 2017-09-04 10:25 | OR ---
DATE OF OPERATION: 08/31/2017 SURGEON: Varinder Solis MD OPERATION PERFORMED: Right total knee arthroplasty with left knee corticosteroid injection. PREOPERATIVE DIAGNOSIS: Bilateral knee osteoarthrosis. POSTOPERATIVE DIAGNOSIS: Bilateral knee osteoarthrosis. ANESTHESIA: General LMA with local. ANESTHESIA PROVIDER: Neva Rivas. ASSISTANTS: 1. Alisha Menon PA-C. 2. Gemma Sidhu LPN. ESTIMATED BLOOD LOSS: 500 mL. COMPLICATIONS: None. CONDITION: Stable. IMPLANTS: 1. [place] size 3 press-fit CR femur. 2. Carla size 3 press-fit tibial base plate. 3. Carla size 3 9 mm CS polyethylene insert. 4. [place] size 29 x 9 mm press-fit patella. DESCRIPTION OF PROCEDURE: The patient was identified in the preop holding area. Proper site was marked and identified by the surgeon. The patient was taken back to the operating theater. After adequate anesthesia, the patient's right lower extremity had a nonsterile tourniquet applied and it was then sterilely prepped and draped in the usual sterile fashion. OR timeout was performed. The patient received 2 g IV Ancef. At this time, right lower extremity was exsanguinated. Tourniquet was insufflated to 300 mmHg. Standard medial parapatellar incision was made. Medial parapatellar arthrotomy was created. Deep fibers of the MCL were raised and anterior fat pad was resected. At this time, attention was turned to the patella. Patella measured 20, it was resected to a 13 for a 29 x 9 mm patella. Drill holes were then drilled and found to be in adequate position. The drill was then drilled in the distal femur and the intramedullary distal femoral cutting guide was then placed. 8 mm was resected off the distal femur and was found to be an adequate resection. Sizing guide was placed. It was found to be a [place] size 3 press-fit CR femur that was shown on the implant record at the beginning of this dictation. The drill holes were drilled for the epicondylar axis using Whitesides line and epicondyles as reference. At this time, the 4-in - 1 cutting block was placed. An anterior posterior and anterior and posterior chamfer cuts were then completed. The correct size box cut was then placed and the box cut was completed and found to be an adequate resection. Attention was turned to the tibia. The posterior medial lateral retractors were placed. The extramedullary tibial guide was placed. It was placed in the old footprint of the ACL. It was aligned with the center of the ankle and 0 degrees of slope, 9 mm was then resected off the unaffected lateral side. There was found to be an acceptable reduction. At this time, posterior osteophytes were removed along with medial and lateral meniscus. A trial implant was placed with a correct sized tibia that was mentioned at the beginning of the dictation. A [place] size 3 9 mm CS polyethylene was then placed. The patient's knee was brought through range of motion. The patella was tracking centrally and was stable to varus and valgus stress. Alignment was found to be roughly at 0 degrees. The tibia was stamped and drilled in proper rotation. The universal tibial base plate was press-fit in place. Next, the [place] size 3 press-fit CR femur impacted into place and the Carla size 3 9 mm CS polyethylene was placed. The patient's knee was brought into full extension. The patella was then press-fit in place at this time. Tourniquet was deflated. One liter dilute Betadine solution was irrigated through the knee along with 3 L of pulse lavage irrigation with Ancef. Periarticular injection was then completed. The patient's knee was brought through a range of motion. Knee was found to be stable to varus valgus stress, the patella was tracking centrally with full range of motion. At this time, a #2 barbed suture was used for closure of the medial parapatellar arthrotomy. Topical tranexamic acid was placed. 2-0 Vicryl was used subcutaneously, a running 3-0 Monocryl was used subcuticularly. After this procedure was completed, 2 mL of 40 mg Kenalog and 4 mL of 0.25% Marcaine were injected to the left knee. The patient tolerated procedures well and sent to PACU in stable condition. MMCELIA /[id number] ARCHIE
[2017-09-05] MEDS ORDERED: Dulaglutide [Trulicity] 0.5 ML SUBCUT SCH (14:00)
== END 2017-09-01 14:15 | disposition home or self-care (01) | DRG 302 ==
LOC: JD.MS 09:23 → EDSTATUS 14:30
PROVIDERS: ADMIT Orthopaedic Surgery; ATTEND Orthopaedic Surgery
PROC: 0SRC0JA Replacement of Right Knee Joint with Synthetic Substitute, Uncemented, Open Approach (ICD-10-PCS; principal; 2017-08-31)
PROC: 3E0U33Z Introduction of Anti-inflammatory into Joints, Percutaneous Approach (ICD-10-PCS; 2017-08-31)
PROC: 3E0T3BZ Introduction of Anesthetic Agent into Peripheral Nerves and Plexi, Percutaneous Approach (ICD-10-PCS; 2017-08-31)
DX: M17.0 Bilateral primary osteoarthritis of knee (principal); E11.9 Type 2 diabetes mellitus without complications; K21.9 Gastro-esophageal reflux disease without esophagitis; E66.9 Obesity, unspecified; Z68.42 Body mass index [BMI] 45.0-49.9, adult; G47.33 Obstructive sleep apnea (adult) (pediatric); K44.9 Diaphragmatic hernia without obstruction or gangrene; E55.9 Vitamin D deficiency, unspecified; F41.9 Anxiety disorder, unspecified; M79.7 Fibromyalgia; I10 Essential (primary) hypertension; E78.5 Hyperlipidemia, unspecified; E03.9 Hypothyroidism, unspecified; F32.9 Major depressive disorder, single episode, unspecified; J45.909 Unspecified asthma, uncomplicated; H54.7 Unspecified visual loss; Z88.0 Allergy status to penicillin; Z88.1 Allergy status to other antibiotic agents; Z88.2 Allergy status to sulfonamides; Z88.8 Allergy status to other drugs, medicaments and biological substances; Z79.899 Other long term (current) drug therapy; Z79.82 Long term (current) use of aspirin; Z79.4 Long term (current) use of insulin
CPT/HCPCS: 01402; 36415; 64450; 73560-26-RT; 73560-RT; 80053; 82962; 85027; 87641; 94640; 94760; 97110-GP; 97116-GP; 97161-GP; 97165-GO; 97535-GO; A9270-GY; C1776; J0171; J0461; J0690; J0697; J1100; J1170; J1815-GY; J1885; J2250; J2270; J2405; J2704; J2710; J2795; J3010; J3301; J3370; J3490; J7120

== ENCOUNTER 2018-07-26 07:33 | Inpatient (IN) | payer BC ==
--- NOTE | 2018-07-23 10:54 | PCM.PREANE ---
Preanesthetic Assessment - Anesthesia/Transfusion/Family Hx Anesthesia History: Prior Anesthesia Reaction Type of Anesthesia Reaction: Excessive Somnolence Family History of Anesthesia Reaction: No Transfusion History: No Prior Transfusion(s) Intubation History: History of Difficulty Intubation (viewed anesthesia record from 2010, had to be awaken with procedure in toulon due to difficult airway ) - Review of Systems General: No Symptoms Pulmonary: No Symptoms (MARCELLA with CPAP noted, History of asthma(no inhaler used for 3 years per patient.)) Cardiovascular: No Symptoms (History of HTN), Palpitations Gastrointestinal: No Symptoms (History of Hiatal hernia/GERD), Difficulty Swallowing (History of dysphagia) Neurological: No Symptoms (History of lower back surgery: Approx. 15 years ago. Chronic lower back pain today rated at 6/10.) Other: Reports: Diabetes (AM blood sugar: 150 @ 0700), Thyroid Problems ( Hypothyroid), Neck Pain (History of difficult intubation/ Neck pain 05/30 chronic in nature.), Depression, Anxiety - Physical Assessment NPO Status Date: 07/25/18 NPO Status Time: 22:00 Pulse: 85 O2 Sat by Pulse Oximetry: 98 Respiratory Rate: 16 Blood Pressure: 105/53 Temperature: 36.8 C Height: 1.57 m Weight: 114 kg ASA Class: 3 Mental Status: Alert & Oriented x3 Airway Class: Mallampati = 2 Dentition: Reports: Normal Dentition, Caries Thyro-Mental Finger Breadths: 3 Mouth Opening Finger Breadths: 3 ROM/Head Extension: Limited/Partial Lungs: Clear to Auscultation, Normal Respiratory Effort, Decreased Breath Sounds (Albuterol premix nebulizer given in pre-op room air sat=95%) Cardiovascular: Regular Rate, Regular Rhythm, No Murmurs - Lab Values: MRSA screen: negative All labs reviewed and noted and within acceptable ranges to proceed with scheduled procedure. - Imaging/EKG Impressions: EKG: SR rate= 92 CXR: negative Stess Test: 05/2016 negative stress test noted - Allergies Allergies/Adverse Reactions: Allergies Allergy/AdvReac Type Severity Reaction Status Date / Time clarithromycin [From Biaxin] Allergy Rash Verified 07/24/18 10:19 levofloxacin [From Levaquin] Allergy Other Verified 07/24/18 10:19 nitrofurantoin Allergy Cannot Verified 07/24/18 10:19 [From Macrobid] Remember nizatidine [From Axid] Allergy Itching Verified 07/24/18 10:19 Penicillins Allergy Rash Verified 07/24/18 10:19 Sulfa (Sulfonamide Allergy Rash Verified 07/24/18 10:19 Antibiotics) - Acknowledgements Anesthesia Type Planned: General Anesthesia, Spinal Pt an Appropriate Candidate for the Planned Anesthesia: Yes Alternatives and Risks of Anesthesia Discussed w Pt/Guardian: Yes Pt/Guardian Understands and Agrees with Anesthesia Plan: Yes PreAnesthesia Questionnaire HEENT History: Reports: Allergic Rhinitis, Impaired Vision, Sinusitis Other HEENT History: eye surgery for detached retina, wears glasses Cardiovascular History: Reports: High Cholesterol, Hypertension Respiratory History: Reports: Asthma, Sleep Apnea Other Respiratory History: Upper respiratory infections, Recurrent. Gastrointestinal History: Reports: Cholelithiasis, Colon Polyp, GERD Other Gastrointestinal History: epigastric pain, colitis, dysphagia, constipation, hiatal hernia, polyp 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 History: Reports: Urinary Incontinence, UTI, Recurrent, Other ( See Below) Other 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 History: urgency, hypertonicity of bladder, overactive bladder VISE HAND History: Reports: Other OB/BYN History: Preeclampsia, gestational diabetes. Musculoskeletal History: Reports: Fibromyalgia, Osteoarthritis Other Musculoskeletal History: L knee sprain, neck pain, R knee pain Neurological History: Reports: None Psychiatric History: Reports: Anxiety, Depression, Panic Attack Endocrine/Metabolic History: Reports: Diabetes, Type II, Hypothyroidism, Obesity /BMI 30+, Vitamin D Deficiency Hematologic History: Reports: None Immunologic History: Reports: None Oncologic (Cancer) History: Reports: None Other Dermatologic History: acne - Infectious Disease History Infectious Disease History: Reports: Chicken Pox, Influenza - Past Surgical History HEENT Surgical History: Reports: Eye Surgery, Retinal, Tonsillectomy GI Surgical History: Reports: Cholecystectomy, Colonoscopy, Hernia Repair/Other - HOME MEDS Home Medications: Home Meds Albuterol [Proventil HFA] 6.7 gm INH Q4H PRN 01/29/15 [History] DULoxetine HCl [Cymbalta] 60 mg PO DAILY 01/29/15 [History] Hydrochlorothiazide 25 mg PO DAILY 01/29/15 [History] Dulaglutide [Trulicity] 0.5 ml SQ SA 08/28/17 [History] Insulin Lispro [Humalog Kwikpen U-100] 15 units SQ TIDAC 08/28/17 [History] Cholecalciferol (Vitamin D3) [Vitamin D3] 5,000 units PO DAILY 08/31/17 [History ] Cyanocobalamin (Vitamin B12) [Vitamin B12] 500 mcg PO DAILY 08/31/17 [History] Lactobacillus Rhamnosus GG [Culturelle] 1 cap PO DAILY 08/31/17 [History] Levothyroxine 25 mcg PO ACBREAKFAST 09/01/17 [History] Ca Carbonate/Vitamin D3/Vit K [Calcium + D Soft Chewable Tab] 1 tab PO DAILY 07/09 [History] Darifenacin Hydrobromide [Darifenacin ER] 7.5 mg PO DAILY 07/24/18 [History] Insulin Degludec [Tresiba] 54 units SQ BEDTIME 07/24/18 [History] Lisinopril 10 mg PO DAILY 07/24/18 [History] Magnesium Oxide 250 mg PO DAILY 07/24/18 [History] Multivitamin [Daily Yamini] 1 tab PO DAILY 07/24/18 [History] Nitrofurantoin Monohyd/M-Cryst [Macrobid 100 mg Capsule] 100 mg PO MO 07/24/18 [ History] atorvaSTATin [Lipitor] 20 mg PO DAILY 07/24/18 [History] - CURRENT (IN HOUSE) MEDS Current Meds: Current Medications Lactated Ringer's (Ringers, Lactated) 1,000 mls @ 125 mls/hr IV ASDIRECTED NESTOR Lidocaine/Sodium Bicarbonate (Buffered Lidocaine 1% In Ns 8.4%) 0.25 ml IDERM ONETIME PRN PRN Reason: Prior to IV Start Sodium Chloride (Saline Flush) 10 ml FLUSH ASDIRECTED PRN PRN Reason: Keep Vein Open
[~2018-07-26 07:33] MED LIST changes: -Acetaminophen 325 MG Tab PO SCH; +Albuterol 0.083% 2.5 MG/3 ML Neb Soln NEB PRN; -Bisacodyl 5 MG Tab PO PRN; -Cyclobenzaprine 10 MG Tab PO PRN; -Ketorolac 15 MG/ML SDV IVPUSH PRN; -Magnesium Hydroxide 400 MG/5 ML Susp 30 ML Cup PO PRN; -Morphine 2 MG/ML Syringe IVPUSH PRN; -Naloxone 0.4 MG/ML SDV IVPUSH PRN; -Ondansetron 4 MG/2 ML SDV IVPUSH PRN; -Pregabalin 25 MG Cap PO SCH; -Ropivacaine 0.5% 5 MG/ML 30 ML SDV ONE; -Sennosides 8.6 MG Tab PO PRN; +ceFAZolin 2 GM in Premix Bag 1 BAG IV SCH; -oxyCODONE ER 10 MG TAB.ER PO SCH
[2018-07-26] MEDS ORDERED: Ondansetron 4 MG/2 ML SDV ONE (08:48)
[2018-07-26] MEDS ORDERED: Lactated Ringers 1,000 ML ONE ×2 (08:48→11:00)
[2018-07-26] MEDS ORDERED: ceFAZolin 1 GM Vial ONE (08:48)
[2018-07-26] MEDS ORDERED: Propofol 200 MG/20 ML SDV ONE ×2 (08:48→10:35)
[2018-07-26] MEDS ORDERED: Midazolam 1 MG/ML 2 ML SDV ONE (08:49)
[2018-07-26] MEDS ORDERED: fentaNYL 100 MCG/2 ML SDV ONE ×2 (08:49→10:33)
[2018-07-26] MEDS ORDERED: Ketamine 500 mg/10 ML MDV ONE (08:51)
[2018-07-26] MEDS ORDERED: Phenylephrine 1% 10 MG/ML SDV ONE (08:56)
[2018-07-26] MEDS: ceFAZolin 1 GM Vial ONE ×2 (08:59→12:01)
[2018-07-26] MEDS: Iodine/Sodium Iodide 2% Tincture 30 ML Bottle ONE ×2 (09:00→11:59)
[2018-07-26] MEDS: Bupivacaine 0.25% 30 ML SDV ONE ×2 (09:00→12:05)
[2018-07-26] MEDS: Vancomycin 1 GM SDV ONE ×2 (09:01→12:12)
[2018-07-26] MEDS ORDERED: Succinylcholine/Normal Saline 100 MG/5 ML Syringe ONE (10:34)
[2018-07-26] MEDS ORDERED: Rocuronium 50 MG/5 ML Vial ONE (10:34)
[2018-07-26] MEDS ORDERED: Albuterol 6.7 GM Inhaler INH ONE (10:52)
[2018-07-26] MEDS ORDERED: Ketorolac 15 MG/ML SDV IVPUSH PRN (11:00)
[2018-07-26] MEDS ORDERED: Cyclobenzaprine 10 MG Tab PO PRN (11:00)
[2018-07-26] MEDS ORDERED: HYDROmorphone 0.5 MG/0.5 ML Syringe IVPUSH PRN (11:13)
[2018-07-26] MEDS ORDERED: diphenhydrAMINE 50 MG/ML SDV IVPUSH PRN (11:13)
[2018-07-26] MEDS ORDERED: Albuterol 0.083% 2.5 MG/3 ML Neb Soln NEB PRN (11:13)
[2018-07-26] MEDS ORDERED: Ondansetron 4 MG/2 ML SDV IVPUSH PRN (11:13)
[2018-07-26] MEDS ORDERED: fentaNYL 100 MCG/2 ML SDV IVPUSH PRN (11:13)
[2018-07-26] MEDS ORDERED: ePHEDrine 50 MG/ML SDV IVPUSH PRN (11:13)
[2018-07-26] MEDS ORDERED: Phenylephrine 1 MG in Sodium Chloride 0.9% 10 ML IV SCH (11:15)
[2018-07-26] MEDS ORDERED: HYDROmorphone 0.5 MG/0.5 ML Syringe ONE (11:23)
[2018-07-26] MEDS ORDERED: Dexamethasone 4 MG/ML 5 ML MDV ONE (11:29)
[2018-07-26] MEDS ORDERED: Neostigmine Methylsulfate 1 MG/ML 5 ML Syringe ONE (11:33)
--- NOTE | 2018-07-26 13:02 | PCM.POSTAN ---
POST ANESTHESIA ASSESSMENT - MENTAL STATUS Mental Status: Alert - VITAL SIGNS Pulse Rate: 103 SaO2: 96 (3LPM nasal cannula) Resp Rate: 17 Blood Pressure: 129/85 Temperature: 36.6 C - RESPIRATORY Respiratory Status: Respiratory Rate WNL, Airway Patent, O2 Saturation Stable, Supplemental Oxygen - CARDIOVASCULAR CV Status: Pulse Rate WNL, Blood Pressure Stable - GASTROINTESTINAL GI Status: No Symptoms - POST OP HYDRATION Hydration Status: Adequate & Stable
[2018-07-26] MEDS ORDERED: EPINEPHrine 1 MG/ML SDV ONE (13:17)
[2018-07-26] MEDS ORDERED: Ropivacaine 0.5% 5 MG/ML 30 ML SDV ONE (13:17)
[2018-07-26] MEDS ORDERED: Lidocaine 1% 4 ML ONE (13:17)
--- NOTE | 2018-07-26 13:54 | PCM.SN ---
- Free Text/Narrative Note: Right selective femoral nerve block at the adductor canal for post-procedure pain control under US guidance requested by Dr. Solis. Time Out: 1320 Start: 1323 End: 1338 Chart reviewed. Consent signed. Questions answered. Appropriate monitors applied. Time out performed. Right mid-shaft femur identified with ultrasound, scanning medially of femur, the femoral artery in the adductor canal visualized , and the femoral nerve located laterally to the artery. The skin was prepped lateral to the ultrasound probe with chlorahexadine times two. The 21ga 4 insulated block needle was inserted under direct ultrasound guidance into the adductor canal. 25mL of 0.5% ropivacaine with 1:200,000 epinephrine was injected circumferentially around the nerve with intermittent negative aspiration noted. Patient tolerated the procedure well. Sterile technique noted along with sterile gloves, mask, and sterile probe cover. See picture on progress note and vital signs on nurses notes. Block completed in PACU. Raisa Ambrose CRNA
--- NOTE | 2018-07-26 14:17 | CR ---
Right knee: AP and lateral views of the right knee were obtained. Comparison: Prior right knee exam of 08/31/17. Knee prosthesis is seen. Components are aligned. Soft tissue air is noted from recent surgical procedure. Calcification is noted posterior to the proximal fibular diaphysis which is dystrophic and stable. Impression: 1. Knee prosthesis with evidence of recent surgery. Other incidental finding. Diagnostic code #2
[2018-07-26] MEDS: Acetaminophen/oxyCODONE 325-5 MG Tab PO PRN (17:11)
[2018-07-26] MEDS: ceFAZolin 2 GM in Premix Bag 1 BAG IV SCH (17:14)
[2018-07-26] MEDS: Docusate Sodium 100 MG Cap PO SCH (20:20)
[2018-07-26] MEDS ORDERED: Albuterol 6.7 GM Inhaler INH PRN (22:27)
[2018-07-26] MEDS: Insulin Lispro 100 Units/ML 3 ML Vial SUBCUT SCH (22:41)
[2018-07-27] MEDS: ceFAZolin 2 GM in Premix Bag 1 BAG IV SCH ×2 (01:40→09:46)
[2018-07-27] MEDS: Acetaminophen/oxyCODONE 325-5 MG Tab PO PRN ×3 (03:22→11:47)
[2018-07-27] MEDS ORDERED: Levothyroxine 25 MCG Tab PO SCH (06:00)
[2018-07-27] MEDS: Insulin Lispro 100 Units/ML 3 ML Vial SUBCUT SCH (06:03)
--- NOTE | 2018-07-27 07:40 | PCM.SURGPN ---
- General Info Date of Service: 07/27/18 POD#: 1 Functional Status: Reports: Pain Controlled, Tolerating Diet, Ambulating, Urinating, Other (Pt remained in Hospital overnight due to area of bleeding at incision.) - Patient Data Vitals - Most Recent: Last Vital Signs Temp 97.7 F 07/27/18 03:25 Pulse 84 07/27/18 03:25 Resp 16 07/27/18 03:25 BP 95/50 L 07/27/18 03:25 Pulse Ox 93 L 07/27/18 03:25 Weight - Most Recent: 251 lb 5.231 oz I&O - Last 24 Hours: Intake & Output 07/26/18 07/27/18 07/27/18 22:59 06:59 14:59 Intake Total 0 Balance 0 Lab Results Last 24 Hrs: Laboratory Results - last 24 hr 07/26/18 07/26/18 07/26/18 Range/Units 12:59 16:46 22:13 WBC (3.98-10.04) K/mm3 RBC (3.98-5.22) M/mm3 Hgb (11.2-15.7) gm/L Hct (34.1-44.9) % MCV (79.4-94.8) fl MCH (25.6-32.2) pg MCHC (32.2-35.5) g/dl RDW Std Deviation (36.4-46.3) fL Plt Count (182-369) K/mm3 MPV (9.4-12.3) fl POC Glucose 139 H 156 H 214 H (80-115) mg/dL 07/27/18 07/27/18 Range/Units 05:59 07:06 WBC 12.88 H (3.98-10.04) K/mm3 RBC 4.34 (3.98-5.22) M/mm3 Hgb 11.6 D (11.2-15.7) gm/L Hct 37.1 (34.1-44.9) % MCV 85.5 (79.4-94.8) fl MCH 26.7 (25.6-32.2) pg MCHC 31.3 L (32.2-35.5) g/dl RDW Std Deviation 44.1 (36.4-46.3) fL Plt Count 261 (182-369) K/mm3 MPV 9.2 L (9.4-12.3) fl POC Glucose 214 H (80-115) mg/dL Med Orders - Current: Current Medications Albuterol (Proventil Hfa) 6.7 gm INH Q4H PRN PRN Reason: Shortness of Breath Cyclobenzaprine HCl (Flexeril) 10 mg PO TID PRN PRN Reason: Spasms Docusate Sodium (Colace) 100 mg PO BID [facility] Last Admin: 07/26/18 20:20 Dose: 100 mg Duloxetine HCl (Cymbalta) 60 mg PO DAILY [facility] Hydrochlorothiazide (Hydrochlorothiazide) 25 mg PO DAILY [facility] Cefazolin Sodium/Dextrose 2 gm (/ Premix) 50 mls @ 100 mls/hr IV Q8H [facility] Stop: 07/27/18 10:29 Last Admin: 07/27/18 01:40 Dose: 100 mls/hr Insulin Glargine (Lantus) 54 unit SUBCUT BEDTIME [facility] Insulin Human Lispro (Humalog) 15 unit SUBCUT TIDAC [facility] Last Admin: 07/27/18 06:03 Dose: 15 units Ketorolac Tromethamine (Toradol) 15 mg IVPUSH Q6H PRN PRN Reason: Pain Last Admin: 07/26/18 20:30 Dose: 15 mg Levothyroxine Sodium (Levothyroxine) 25 mcg PO ACBREAKFAST [facility] Last Admin: 07/27/18 05:49 Dose: 25 mcg Lisinopril (Prinivil) 10 mg PO DAILY [facility] Oxycodone/Acetaminophen (Percocet 325-5 Mg) 1 - 2 tab PO Q4H PRN PRN Reason: Pain Last Admin: 07/27/18 03:22 Dose: 2 tab Simvastatin (Zocor) 20 mg PO BEDTIME [facility] Discontinued Medications Albuterol (Proventil Neb Soln) 2.5 mg NEB ONETIME PRN PRN Reason: Improve air entry Stop: 07/26/18 18:00 Last Admin: 07/26/18 08:28 Dose: 2.5 mg Albuterol (Proventil Hfa) Confirm Administered Dose 6.7 gm INH .STK-MED ONE Stop: 07/26/18 10:53 Albuterol (Proventil Neb Soln) 2.5 mg NEB ONETIME PRN PRN Reason: improve ventilation Stop: 07/26/18 15:00 Bupivacaine HCl (Marcaine 0.25%) Confirm Administered Dose 30 ml .ROUTE .STK- MED ONE Stop: 07/26/18 07:54 Last Admin: 07/26/18 12:05 Dose: 30 ml Cefazolin Sodium (Ancef) Confirm Administered Dose 2 gm .ROUTE .STK-MED ONE Stop: 07/26/18 07:54 Last Admin: 07/26/18 12:01 Dose: 2 gm Cefazolin Sodium (Ancef) Confirm Administered Dose 2 gm .ROUTE .STK-MED ONE Stop: 07/26/18 08:49 Dexamethasone (Dexamethasone) Confirm Administered Dose 20 mg .ROUTE .STK-MED ONE Stop: 07/26/18 11:30 Diphenhydramine HCl (Benadryl) 25 mg IVPUSH Q6H PRN PRN Reason: pruritis Stop: 07/26/18 15:00 Ephedrine Sulfate (Ephedrine Sulfate) 5 mg IVPUSH ASDIRECTED PRN PRN Reason: Hypotension Stop: 07/26/18 15:00 Epinephrine HCl (Adrenalin) Confirm Administered Dose 1 mg .ROUTE .STK-MED ONE Stop: 07/26/18 13:18 Fentanyl (Sublimaze) Confirm Administered Dose 100 mcg .ROUTE .STK-MED ONE Stop: 07/26/18 08:50 Fentanyl (Sublimaze) Confirm Administered Dose 100 mcg .ROUTE .STK-MED ONE Stop: 07/26/18 10:34 Fentanyl (Sublimaze) 50 mcg IVPUSH Q5M PRN PRN Reason: Pain Stop: 07/26/18 15:00 Last Admin: 07/26/18 13:14 Dose: 50 mcg Glycopyrrolate () Confirm Administered Dose 1 mg .ROUTE .STK-MED ONE Stop: 07/26/18 11:34 Hydromorphone HCl (Dilaudid) 0.5 mg IVPUSH Q15M PRN PRN Reason: Pain (severe 7-10) Stop: 07/26/18 14:00 Last Admin: 07/26/18 13:18 Dose: 0.5 mg Hydromorphone HCl (Dilaudid) Confirm Administered Dose 0.5 mg .ROUTE .STK-MED ONE Stop: 07/26/18 11:24 Lactated Ringer's (Ringers, Lactated) 1,000 mls @ 125 mls/hr IV ASDIRECTED [facility] Stop: 07/26/18 23:00 Last Admin: 07/26/18 08:15 Dose: 125 mls/hr Lidocaine HCl (Xylocaine-Mpf 1%) Confirm Administered Dose 10 mls @ as directed .ROUTE .STK-MED ONE Stop: 07/26/18 08:49 Lactated Ringer's (Ringers, Lactated) Confirm Administered Dose 1,000 mls @ as directed .ROUTE .STK-MED ONE Stop: 07/26/18 08:49 Lactated Ringer's (Ringers, Lactated) Confirm Administered Dose 1,000 mls @ as directed .ROUTE .STK-MED ONE Stop: 07/26/18 11:01 Phenylephrine HCl 1 mg/ Sodium (Chloride) 10.1 mls @ 1 mls/sec IV TITRATE [facility]; Protocol Stop: 07/26/18 15:00 Lidocaine HCl (Xylocaine-Mpf 1%) Confirm Administered Dose 4 mls @ as directed .ROUTE .STK-MED ONE Stop: 07/26/18 13:18 Iodine (Iodine 2% Mild Tincture) Confirm Administered Dose 30 ml .ROUTE .STK- MED ONE Stop: 07/26/18 07:54 Last Admin: 07/26/18 11:59 Dose: 18 ml Ketamine HCl (Ketalar) Confirm Administered Dose 500 mg .ROUTE .STK-MED ONE Stop: 07/26/18 08:52 Lidocaine/Sodium Bicarbonate (Buffered Lidocaine 1% In Ns 8.4%) 0.25 ml IDERM ONETIME PRN PRN Reason: Prior to IV Start Stop: 07/26/18 18:00 Midazolam HCl (Versed 1 Mg/Ml) Confirm Administered Dose 4 mg .ROUTE .STK-MED ONE Stop: 07/26/18 08:50 Neostigmine Methylsulfate (Neostigmine) Confirm Administered Dose 5 mg .ROUTE .STK-MED ONE Stop: 07/26/18 11:34 Ondansetron HCl (Zofran) Confirm Administered Dose 4 mg .ROUTE .STK-MED ONE Stop: 07/26/18 08:49 Ondansetron HCl (Zofran) 4 mg IVPUSH ONETIME PRN PRN Reason: Nausea/Vomiting Stop: 07/26/18 15:00 Phenylephrine HCl (Yusuf-Synephrine) Confirm Administered Dose 10 mg .ROUTE .STK- MED ONE Stop: 07/26/18 08:57 Propofol (Diprivan 20 Ml) Confirm Administered Dose 400 mg .ROUTE .STK-MED ONE Stop: 07/26/18 08:49 Propofol (Diprivan 20 Ml) Confirm Administered Dose 200 mg .ROUTE .STK-MED ONE Stop: 07/26/18 10:36 Rocuronium Acme (Zemuron) Confirm Administered Dose 50 mg .ROUTE .STK-MED ONE Stop: 07/26/18 10:35 Ropivacaine (Naropin 0.5%) Confirm Administered Dose 30 ml .ROUTE .STK-MED ONE Stop: 07/26/18 13:18 Sodium Chloride (Saline Flush) 10 ml FLUSH ASDIRECTED PRN PRN Reason: Keep Vein Open Stop: 07/26/18 18:00 Succinylcholine Chloride (Succinylcholine In Ns Pf) Confirm Administered Dose 100 mg .ROUTE .STK-MED ONE Stop: 07/26/18 10:35 Tranexamic Acid (Cyklokapron) Confirm Administered Dose 1,000 mg .ROUTE .STK- MED ONE Stop: 07/26/18 07:54 Last Admin: 07/26/18 12:17 Dose: 1,000 mg Vancomycin HCl (Vancomycin) Confirm Administered Dose 1 gm .ROUTE .STK-MED ONE Stop: 07/26/18 07:54 Last Admin: 07/26/18 12:12 Dose: 1 gm - Exam Wound/Incisions: Other (Area of dried blood outlined on Mepilex dressing.) General: Alert, Cooperative, No Acute Distress Lungs: Normal Respiratory Effort Extremities: Other (NVS intact for BLE. Nima's negative for BLE.) - Problem List Review Problem List Initiated/Reviewed/Updated: Yes - My Orders Last 24 Hours: Active Orders 24 hr Category Date Time Status Patient Status [ADT] Routine ADT 07/26/18 14:14 Active Antiembolic Devices [RC] PER UNIT ROUTINE Care 07/26/18 07:12 Active Blood Glucose Check, Bedside [RC] QIDACANDBED Care 07/26/18 16:39 Active Communication Order [RC] ASDIRECTED Care 07/27/18 07:37 Ordered Communication Order [RC] ROUTINE Care 07/26/18 11:13 Active Cooling Warming Measures [RC] ASDIRECTED Care 07/26/18 11:12 Active Notify Provider [RC] ASDIRECTED Care 07/26/18 11:13 Active Oxygen Therapy [RC] ASDIRECTED Care 07/26/18 11:12 Active Pulse Oximetry [RC] ASDIRECTED Care 07/26/18 11:12 Active RT Aerosol Therapy [RC] ASDIRECTED Care 07/26/18 11:14 Active RT Incentive Spirometry [RC] Q1HWA Care 07/26/18 07:11 Active Ready for Discharge [RC] PER UNIT ROUTINE Care 07/26/18 07:10 Active Vital Signs [RC] Q4HR Care 07/26/18 11:12 Active OT Evaluation and Treatment [CONS] Routine Cons 07/26/18 07:11 Active PT Evaluation and Treatment [CONS] Routine Cons 07/26/18 07:11 Active ADA Diabetic [[place] [employer] Diet] [DIET Diet 07/26/18 Dinner Active ] BMP [BASIC METABOLIC PANEL,BMP] [CHEM] Routine Lab 07/27/18 07:06 Received Acetaminophen/oxyCODONE [Percocet 325-5 MG] Med 07/26/18 11:00 Active 1 - 2 tab PO Q4H PRN Albuterol [Proventil HFA] Med 07/26/18 22:27 Pending 6.7 gm INH Q4H PRN Cyclobenzaprine [Flexeril] Med 07/26/18 11:00 Active 10 mg PO TID PRN DULoxetine [Cymbalta] Med 07/27/18 09:00 Active 60 mg PO DAILY Docusate Sodium [Colace] Med 07/26/18 21:00 Active 100 mg PO BID Insulin Glarg,Human.Rec.Analog [LantUS] Med 07/27/18 21:00 Active 54 unit SUBCUT BEDTIME Insulin Lispro [HumaLOG] Med 07/26/18 22:29 Active 15 unit SUBCUT TIDAC Ketorolac [Toradol] Med 07/26/18 11:00 Active 15 mg IVPUSH Q6H PRN Levothyroxine Med 07/27/18 06:00 Active 25 mcg PO ACBREAKFAST Lisinopril [Prinivil] Med 07/27/18 09:00 Active 10 mg PO DAILY Simvastatin [Zocor] Med 07/27/18 21:00 Active 20 mg PO BEDTIME ceFAZolin [Ancef] 2 gm Med 07/26/18 18:00 Active Premix Bag 1 bag IV Q8H hydroCHLOROthiazide Med 07/27/18 09:00 Active 25 mg PO DAILY Sequential Compression Device [OM.PC] Per Unit Routine Oth 07/26/18 07:11 Ordered Resuscitation Status Routine Resus Stat 07/26/18 14:46 Ordered Medication Orders Albuterol (Proventil Hfa) 6.7 gm INH Q4H PRN PRN Reason: Shortness of Breath Cyclobenzaprine HCl (Flexeril) 10 mg PO TID PRN PRN Reason: Spasms Docusate Sodium (Colace) 100 mg PO BID [facility] Last Admin: 07/26/18 20:20 Dose: 100 mg Duloxetine HCl (Cymbalta) 60 mg PO DAILY [facility] Hydrochlorothiazide (Hydrochlorothiazide) 25 mg PO DAILY [facility] Cefazolin Sodium/Dextrose 2 gm (/ Premix) 50 mls @ 100 mls/hr IV Q8H [facility] Stop: 07/27/18 10:29 Last Admin: 07/27/18 01:40 Dose: 100 mls/hr Infusion: 07/26/18 17:44 Dose: 100 mls/hr Admin: 07/26/18 17:14 Dose: 100 mls/hr Insulin Glargine (Lantus) 54 unit SUBCUT BEDTIME [facility] Insulin Human Lispro (Humalog) 15 unit SUBCUT TIDAC [facility] Last Admin: 07/27/18 06:03 Dose: 15 units Admin: 07/26/18 22:41 Dose: 15 units Ketorolac Tromethamine (Toradol) 15 mg IVPUSH Q6H PRN PRN Reason: Pain Last Admin: 07/26/18 20:30 Dose: 15 mg Levothyroxine Sodium (Levothyroxine) 25 mcg PO ACBREAKFAST [facility] Last Admin: 07/27/18 05:49 Dose: 25 mcg Lisinopril (Prinivil) 10 mg PO DAILY [facility] Oxycodone/Acetaminophen (Percocet 325-5 Mg) 1 - 2 tab PO Q4H PRN PRN Reason: Pain Last Admin: 07/27/18 03:22 Dose: 2 tab Admin: 07/26/18 17:11 Dose: 2 tab Simvastatin (Zocor) 20 mg PO BEDTIME [facility] - Assessment Assessment (Free Text/Narrative):: POD#1 - 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 Hgb 11.6. 2. Discharge today if not further bleeding noted. 3. Discussed importance of monitoring of sugars. Pt will be in contact with perioperative educator. 4. Outpatient therapy. The pt's case was discussed with Dr. Solis.
[2018-07-27] MEDS: Docusate Sodium 100 MG Cap PO SCH (08:03)
[2018-07-27 08:08] VITALS: BP 119/60
[2018-07-27] MEDS ORDERED: Lisinopril 10 MG Tab PO SCH (09:00)
[2018-07-27] MEDS ORDERED: Hydrochlorothiazide 25 MG Tab PO SCH (09:00)
[2018-07-27] MEDS ORDERED: Non-Formulary Medication 1 Each (Atorvastatin 20 MG) PO SCH (09:00)
[2018-07-27] MEDS ORDERED: DULoxetine 30 MG Cap PO SCH (09:00)
--- NOTE | 2018-07-27 09:40 | PCM48HPAN ---
Post Anesthesia Note - EVALUATION WITHIN 48HRS OF ANESTHETIC Vital Signs in Normal Range: Yes Patient Participated in Evaluation: Yes Respiratory Function Stable: Yes Airway Patent: Yes Cardiovascular Function Stable: Yes Hydration Status Stable: Yes Pain Control Satisfactory: Yes Nausea and Vomiting Control Satisfactory: Yes Mental Status Recovered: Yes Pulse Rate: 84 Resp Rate: 16 Temperature: 36.5 C Blood Pressure: 119/60 - COMMENTS/OBSERVATIONS Free Text/Narrative:: no anesthesia complications noted
[2018-07-27] MEDS ORDERED: Aspirin 325 MG Tab.EC PO SCH (09:45)
[2018-07-27] MEDS ORDERED: Simvastatin 20 MG Tab PO SCH (21:00)
[2018-07-27] MEDS ORDERED: Insulin Glarg,Human.Rec.Analog 100 UNIT/ML ML SUBCUT SCH (21:00)
--- NOTE | 2018-07-29 07:09 | PCM.OPNOTE ---
- General Post-Op/Procedure Note Date of Surgery/Procedure: 07/26/18 Operative Procedure(s): revision of right total knee patellar component Pre Op Diagnosis: painful right total knee arthroplasty Post-Op Diagnosis: Same Anesthesia Technique: General ET Tube, Local Primary Surgeon: Varinder Solis Anesthesia Provider: Raisa Ambrose Inspector Metal Can: Alisha Menon Inspector Metal Can: Gemma Sidhu EBL in mLs: 10 Complications: None Condition: Good Free Text/Narrative:: patella 31x9
--- NOTE | 2018-07-29 07:58 | OR ---
DATE OF OPERATION: 07/26/2018 SURGEON: Varinder Solis MD OPERATION PERFORMED: Revision of right total knee patellar component. PREOPERATIVE DIAGNOSIS: Painful right total knee arthroplasty. POSTOPERATIVE DIAGNOSIS: Painful right total knee arthroplasty. ANESTHESIA: General endotracheal intubation with local. ANESTHESIA PROVIDER: Raisa Ambrose CRNA ASSISTANTS: 1. Alisha Menon PA-C. 2. Gemma Sidhu LPN. ESTIMATED BLOOD LOSS: 10 mL. COMPLICATIONS: None. CONDITION: Stable. IMPLANTS: Carla 31 x 9 mm symmetric cemented patella. DESCRIPTION OF PROCEDURE: The patient was identified in the preop holding area, where proper site was marked and identified by the surgeon. The patient was taken back to the operating theater, where after adequate anesthesia, the patient's right lower extremity was sterilely prepped and draped in the usual sterile fashion. OR time-out was performed. The patient received 2 g IV Ancef. At this time, the previous incision was utilized although we utilized only about two-thirds of the previous incision. This was taken down to the quad tendon and medial parapatellar arthrotomy was created. At this time, there was noted to be no large effusion. The rest of the components appeared well-seated. There was significant soft tissue overgrowth around the patella. At this time, this was resected circumferentially around the patella. The patellar component was noted to be significantly grown in with good bony ingrowth with no signs of loosening. At this time, we used a reciprocating saw to cut through two of the pegs and then the last one was able to just be removed. At this point, it did show that there was a small undersizing of the patella and the patient did have significant overgrowth as well as the bony overgrowth since the time of surgery on the very inferior pole. At this time, I did do a clean-up cut of roughly 1 mm to 2 mm on the patella. One of the pegs was remaining in place and was unable to be removed at this time. At this time, I sized the patella and was found to have adequate coverage completely with the 31 x 9 mm patella. The drill holes were then drilled in a different pattern from the previous drill holes and found to be in adequate position. At this time, the trial component was placed. The patient's patella was tracking centrally, but she was noted to have some tight lateral structures, so a partial lateral retinacular release was done at this time. There were no concerns at this time, cement was mixed at the back table. The patella was irrigated with pulse lavage irrigation with Ancef, and then completely dried. Once the cement was ready, the 31 x 9 mm symmetric Carla patella was cemented into place. At this time, 1 L dilute Betadine solution was irrigated through the knee along with 3 L pulse lavage irrigation with Ancef. Marcaine was injected around the site along with a periarticular injection. Once the cement had hardened, the clamp was taken off. A #2 barbed suture was used for closure of the medial parapatellar arthrotomy, 2-0 Vicryl was used subcutaneously, and Prineo was used for the skin. The patient had a sterile soft dressing applied and was sent back in stable condition. YESY /[id number]
== END 2018-07-27 11:55 | disposition home or self-care (01) | DRG 302 ==
LOC: JD.MS 07:33
PROVIDERS: ADMIT Orthopaedic Surgery; ATTEND Orthopaedic Surgery
PROC: 0SPC0NZ Removal of Patellofemoral Synthetic Substitute from Right Knee Joint, Open Approach (ICD-10-PCS; principal; 2018-07-26)
PROC: 0SRC0N9 Replacement of Right Knee Joint with Patellofemoral Synthetic Substitute, Cemented, Open Approach (ICD-10-PCS; principal; 2018-07-26)
PROC: 3E0T3BZ Introduction of Anesthetic Agent into Peripheral Nerves and Plexi, Percutaneous Approach (ICD-10-PCS; 2018-07-26)
DX: T84.84XA Pain due to internal orthopedic prosthetic devices, implants and grafts, initial encounter (principal); Y83.8 Other surgical procedures as the cause of abnormal reaction of the patient, or of later complication, without mention of misadventure at the time of the procedure; R13.10 Dysphagia, unspecified; E66.9 Obesity, unspecified; Z68.42 Body mass index [BMI] 45.0-49.9, adult; G89.29 Other chronic pain; I10 Essential (primary) hypertension; E11.9 Type 2 diabetes mellitus without complications; E55.9 Vitamin D deficiency, unspecified; F41.9 Anxiety disorder, unspecified; M79.7 Fibromyalgia; F32.9 Major depressive disorder, single episode, unspecified; K21.9 Gastro-esophageal reflux disease without esophagitis; E03.9 Hypothyroidism, unspecified; J45.20 Mild intermittent asthma, uncomplicated; N32.81 Overactive bladder; G89.18 Other acute postprocedural pain; M54.2 Cervicalgia; K44.9 Diaphragmatic hernia without obstruction or gangrene; G47.33 Obstructive sleep apnea (adult) (pediatric); K59.00 Constipation, unspecified; M54.5 Low back pain; H54.7 Unspecified visual loss; E78.00 Pure hypercholesterolemia, unspecified; R32 Unspecified urinary incontinence; Z79.4 Long term (current) use of insulin; Z79.899 Other long term (current) drug therapy; Z88.0 Allergy status to penicillin; Z88.1 Allergy status to other antibiotic agents; Z88.2 Allergy status to sulfonamides; Z86.010 Personal history of colon polyps; Z87.440 Personal history of urinary (tract) infections; Z90.49 Acquired absence of other specified parts of digestive tract
CPT/HCPCS: 01402; 36415; 64450; 73560-26-RT; 73560-RT; 80048; 82962; 85027; 94640; 97110-GP; 97116-GP; 97161-GP; 97530-GP; A9270-GY; J0171; J0330; J0690; J1100; J1170; J1815-GY; J1885; J2001; J2250; J2370; J2405; J2704; J2710; J2795; J3010; J3370; J3490; J7120

== ENCOUNTER 2018-08-23 05:50 | Inpatient (IN) | payer BC ==
[~2018-08-23 05:50] MED LIST changes: +Acetaminophen 325 MG Tab PO ONE; -Albuterol 0.083% 2.5 MG/3 ML Neb Soln NEB PRN; -Lactated Ringers 1,000 ML IV SCH; -Lidocaine 1%/Sod Bicarbonate in NS 8.4% 1 ML Syringe IDERM PRN; +Pregabalin 25 MG Cap PO ONE; -Sodium Chloride 0.9% 10 ML Syringe FLUSH PRN; -ceFAZolin 2 GM in Premix Bag 1 BAG IV SCH; +oxyCODONE ER 10 MG TAB.ER PO ONE
--- NOTE | 2018-08-23 06:44 | PCM.CONS ---
H&P History of Present Illness - General Date of Service: 08/23/18 Admit Problem/Dx: Admission Diagnosis/Problem Admission Diagnosis/Problem Osteoarthritis of knee Source of Information: Patient, Old Records, Provider, RN, RN Notes Reviewed History Limitations: Reports: No Limitations - History of Present Illness Initial Comments - Free Text/Narative: Shanna Aleman is a 63 yo female patient of Dr. Solis who is post-operative day 0 of left TKA. Hospital medicine was consulted for post-operative medical care of the following listed chronic conditions. At this time she is resting comfortably in bed. Pain is controlled. She denies any chest pain, shortness of breath, palpitations, nausea, or vomiting. She carries a history of: HLD, hypertension, asthma, sleep apnea,recurrent URIs, GERD, colitis, dysphagia, constipation, hiatal hernia, recurrent current UTIs, urinary incontinence, hypertonicity of the bladder, overactive bladder, urge incontinence, fibromyalgia, osteoarthritis, anxiety, depression, prior panic attacks, type II DM, hypothyroidism, obesity, vitamin D deficiency, acne. She was never a smoker. She is a full code. Her primary care provider is Dr. Duenas. Left Knee Pain Score (Numeric/FACES): 5 - Related Data Allergies/Adverse Reactions: Allergies Allergy/AdvReac Type Severity Reaction Status Date / Time clarithromycin [From Biaxin] Allergy Rash Verified 08/20/18 13:47 levofloxacin [From Levaquin] Allergy Rash Verified 08/20/18 13:47 nitrofurantoin Allergy Rash Verified 08/20/18 13:47 [From Macrobid] nizatidine [From Axid] Allergy Itching Verified 08/20/18 13:47 Penicillins Allergy Rash Verified 08/20/18 13:47 Sulfa (Sulfonamide Allergy Rash Verified 08/20/18 13:47 Antibiotics) Home Medications: Home Meds DULoxetine HCl [Cymbalta] 60 mg PO DAILY 01/29/15 [History] Hydrochlorothiazide 25 mg PO DAILY 01/29/15 [History] Dulaglutide [Trulicity] 0.5 ml SQ SA 08/28/17 [History] Insulin Lispro [Humalog Kwikpen U-100] 15 units SQ TIDAC 08/28/17 [History] Cholecalciferol (Vitamin D3) [Vitamin D3] 5,000 units PO DAILY 08/31/17 [History ] Cyanocobalamin (Vitamin B12) [Vitamin B12] 500 mcg PO DAILY 08/31/17 [History] Lactobacillus Rhamnosus GG [Culturelle] 1 cap PO DAILY 08/31/17 [History] Levothyroxine 25 mcg PO ACBREAKFAST 09/01/17 [History] Ca Carbonate/Vitamin D3/Vit K [Calcium + D Soft Chewable Tab] 1 tab PO DAILY 07/09 [History] Insulin Degludec [Tresiba] 56 units SQ BEDTIME 07/24/18 [History] Lisinopril 10 mg PO DAILY 07/24/18 [History] Magnesium Oxide 250 mg PO DAILY 07/24/18 [History] Multivitamin [Daily Yamini] 1 tab PO DAILY 07/24/18 [History] Nitrofurantoin Monohyd/M-Cryst [Macrobid 100 mg Capsule] 100 mg PO MO 07/24/18 [ History] Darifenacin Hydrobromide [Darifenacin ER] 7.5 mg PO DAILY 08/20/18 [History] Fish Oil/[place]-3 Fatty Acids [Fish Oil 1,000 MG] 1 gm PO DAILY 08/20/18 [History ] Fluconazole [Diflucan] 100 mg PO DAILY 08/20/18 [History] atorvaSTATin Calcium [Lipitor] 20 mg PO BEDTIME 08/20/18 [History] Insulin Lispro [Insulin Lispro Kwikpen U-100] See Protocol SQ ACBREAKFASTANDBED 08/23/18 [History] Past Medical History HEENT History: Reports: Allergic Rhinitis, Impaired Vision, Sinusitis Other HEENT History: eye surgery for detached retina, wears glasses Cardiovascular History: Reports: High Cholesterol, Hypertension Respiratory History: Reports: Asthma, Sleep Apnea Other Respiratory History: Upper respiratory infections, Recurrent. 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 Musculoskeletal History: Reports: Fibromyalgia, Osteoarthritis Other Musculoskeletal History: L knee sprain, neck pain, R knee pain Neurological History: Reports: None Psychiatric History: Reports: Anxiety, Depression, Panic Attack Endocrine/Metabolic History: Reports: Diabetes, Type II, Hypothyroidism, Obesity /BMI 30+, Vitamin D Deficiency Hematologic History: Reports: None Immunologic History: Reports: None Oncologic (Cancer) History: Reports: None Other Dermatologic History: acne - Infectious Disease History Infectious Disease History: Reports: Chicken Pox, Influenza - Past Surgical History Head Surgeries/Procedures: Reports: None HEENT Surgical History: Reports: Eye Surgery, Retinal, Tonsillectomy Cardiovascular Surgical History: Reports: None Respiratory Surgical History: Reports: None GI Surgical History: Reports: Cholecystectomy, Colonoscopy, Hernia Repair/Other Female Surgical History: Reports: Hysterectomy Male Surgical History: Reports: None Endocrine Surgical History: Reports: None Other Endocrine Surgeries/Procedures: DEXA scan - awaiting results. Neurological Surgical History: Reports: None Musculoskeletal Surgical History: Reports: Arthroscopic Knee Other Musculoskeletal Surgeries/Procedures:: L foot surgery, knee surgeries in 00,07,10; lower back surgery, knee injections Oncologic Surgical History: Reports: None Social & Family History - Family History HEENT: Reports: Glaucoma Respiratory: Reports: COPD GI: Reports: Diverticulitis OBGYN: Reports: Recurrent Spontaneous Neurological: Reports: CVA Psychiatric: Reports: Anxiety, Depression Endocrine/Metabolic: Reports: Obesity/MBI 30+ Other Dermatologic Family History: Rosatia - sister Oncologic: Reports: Ovarian - Tobacco Use Smoking Status *Q: Never Smoker Second Hand Smoke Exposure: No - Caffeine Use Caffeine Use: Reports: Coffee - Recreational Drug Use Recreational Drug Use: No H&P Review of Systems - Review of Systems: Review Of Systems: See Below General: Reports: No Symptoms. Denies: Fever, Chills HEENT: Reports: No Symptoms. Denies: Headaches, Sore Throat Pulmonary: Reports: No Symptoms. Denies: Shortness of Breath, Wheezing, Pleuritic Chest Pain, Cough, Sputum Cardiovascular: Reports: No Symptoms. Denies: Chest Pain, Palpitations, Dyspnea on Exertion, Edema Gastrointestinal: Reports: No Symptoms. Denies: Abdominal Pain, Constipation, Diarrhea, Nausea, Vomiting 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: Reports: No Symptoms. Denies: Pain Musculoskeletal: Reports: No Symptoms Skin: Reports: No Symptoms. Denies: Cyanosis Psychiatric: Reports: No Symptoms. Denies: Confusion Neurological: Reports: No Symptoms Hematologic/Lymphatic: Reports: No Symptoms Immunologic: Reports: No Symptoms Exam - Exam Exam: See Below - Vital Signs Vital Signs: Last Vital Signs Temp 97.7 F 08/23/18 06:00 Pulse 85 08/23/18 06:00 Resp 16 08/23/18 06:00 BP 96/46 L 08/23/18 06:00 Pulse Ox 97 08/23/18 06:00 Weight: 248 lb - Exam Quality Assessment: Supplemental Oxygen, DVT Prophylaxis General: Alert, Oriented, Cooperative. No: Mild Distress HEENT: Conjunctiva Clear, EACs Clear, EOMI, Hearing Intact, Mucosa Moist & Zearing , Normal Nasal Septum, Posterior Pharynx Clear, PERRLA Neck: Supple, Trachea Midline Lungs: Clear to Auscultation, Normal Respiratory Effort Cardiovascular: Regular Rate, Regular Rhythm GI/Abdominal Exam: Normal Bowel Sounds, Soft, Non-Tender, No Organomegaly, No Distention (Female) Exam: Deferred Rectal (Female) Exam: Deferred Back Exam: Normal Inspection, Full Range of Motion Extremities: No Pedal Edema, Normal Capillary Refill, Leg Pain, Limited Range of Motion, Other (Bandage in place on left leg. Bandage is dry and intact. Cooling pack in place.) Peripheral Pulses: 2+: Radial (L), Radial (R), Dorsalis Pedis (L), Dorsalis Pedis (R) Skin: Warm, Dry, Intact Neurological: Cranial Nerves Intact (Grossly ) Neuro Extensive - Mental Status: Alert, Oriented x3, Normal Mood/Affect - Patient Data Lab Results Last 24 hrs: Laboratory Results - last 24 hr 08/23/18 Range/Units 06:11 POC Glucose 146 H (80-115) mg/dL Consult PN Assessment/Plan POD#: 0 Procedures: Procedures AGENT NOS ASSAY W/OPTIC (07/09/16) ASSAY OF FREE THYROXINE (06/29/13) ASSAY OF LIPASE (03/03/16) ASSAY OF NATRIURETIC PEPTIDE (03/03/16) ASSAY OF TROPONIN QUANT (06/03/16) ASSAY THYROID STIM HORMONE (06/29/13) BLOOD TYPING SEROLOGIC ABO (01/30/15) BLOOD TYPING SEROLOGIC RH(D) (01/30/15) C DIFF AMPLIFIED PROBE (07/09/16) C-REACTIVE PROTEIN (06/15/18) CARDIOVASCULAR STRESS TEST (06/17/16) CHEST X-RAY 1 VIEW FRONTAL (03/03/16) COLONOSCOPY AND BIOPSY (07/09/16) COMP SCREEN MAMMOGRAM ADD-ON (06/21/13) COMPLETE CBC W/AUTO DIFF WBC (06/15/18) COMPREHEN METABOLIC PANEL (03/03/16) CREATINE MB FRACTION (03/03/16) CRYPTOSPORIDIUM AG IA (07/09/16) DXA BONE DENSITY AXIAL (08/14/17) EGD BIOPSY SINGLE/MULTIPLE (07/09/16) ELECTROCARDIOGRAM TRACING (03/03/16) EMERGENCY DEPT VISIT (03/03/16) EVALUATE PT USE OF INHALER (01/30/15) FIBRIN DEGRADATION QUANT (03/03/16) GAIT TRAINING THERAPY (09/17/17) GIARDIA AG IA (07/09/16) GLUCOSE BLOOD TEST (01/30/15) HT MUSCLE IMAGE SPECT MULT (06/17/16) HYSTEROSCOPY BIOPSY (07/08/13) LEUKOCYTE ASSESSMENT FECAL (07/09/16) MAMMOGRAM SCREENING (06/21/13) MASSAGE THERAPY (10/19/17) MEDICAL NUTRITION INDIV IN (04/06/18) MR-STAPH DNA AMP PROBE (07/16/18) NEUROMUSCULAR REEDUCATION (11/05/17) PT EVAL MOD COMPLEX 30 MIN (09/17/17) RBC ANTIBODY SCREEN (01/30/15) RBC SED RATE AUTOMATED (06/15/18) ROUTINE VENIPUNCTURE (06/15/18) SMEAR WET [place] SALINE/INK (01/18/18) STOOL CULTR AEROBIC BACT EA (07/09/16) THERAPEUTIC ACTIVITIES (11/05/17) THERAPEUTIC EXERCISES (11/05/17) TISSUE EXAM BY PATHOLOGIST (07/09/16) TISSUE EXAM BY PATHOLOGIST (01/30/15) TISSUE EXAM BY PATHOLOGIST (12/11/14) TRICHOMONAS ASSAY W/OPTIC (01/18/18) URINALYSIS AUTO W/O SCOPE (06/29/13) URINALYSIS AUTO W/SCOPE (01/19/18) URINE CULTURE/COLONY COUNT (01/19/18) US EXAM PELVIC COMPLETE (06/21/13) VAGINAL HYSTERECTOMY (01/30/15) (1) S/P total hip arthroplasty SNOMED Code(s): 212743628831, 285490370359 Code(s): Z96.649 - PRESENCE OF UNSPECIFIED ARTIFICIAL HIP JOINT Priority: High Current Visit: Yes Qualifiers: Laterality: left Qualified Code(s): Z96.642 - Presence of left artificial hip joint (2) Anxiety disorder SNOMED Code(s): 895833754 Code(s): F41.9 - ANXIETY DISORDER, UNSPECIFIED Priority: Medium Current Visit: No Qualifiers: Anxiety disorder type: generalized anxiety disorder Qualified Code(s): F41.1 - Generalized anxiety disorder (3) Asthma SNOMED Code(s): 556544478 Code(s): J45.909 - UNSPECIFIED ASTHMA, UNCOMPLICATED Priority: Low Current Visit: No Qualifiers: Asthma complication type: unspecified (4) Colitis determined by colorectal biopsy SNOMED Code(s): 81418451, 054651889 Code(s): K52.9 - NONINFECTIVE GASTROENTERITIS AND COLITIS, UNSPECIFIED Priority: Low Current Visit: No (5) Depression SNOMED Code(s): 35269434 Code(s): F32.9 - MAJOR DEPRESSIVE DISORDER, SINGLE EPISODE, UNSPECIFIED Priority: Low Current Visit: No Qualifiers: Depression Type: other depression Qualified Code(s): F32.89 - Other specified depressive episodes (6) Diabetes mellitus type 2 in obese SNOMED Code(s): 05238163 Code(s): E11.9 - TYPE 2 DIABETES MELLITUS WITHOUT COMPLICATIONS; E66.9 - OBESITY, UNSPECIFIED Priority: Medium Current Visit: No (7) Epigastric pain SNOMED Code(s): 08767050 Code(s): R10.13 - EPIGASTRIC PAIN Current Visit: No (8) Fibromyalgia SNOMED Code(s): 322966384 Code(s): M79.7 - FIBROMYALGIA Priority: Low Current Visit: No (9) GERD (gastroesophageal reflux disease) SNOMED Code(s): 555898690 Code(s): K21.9 - GASTRO-ESOPHAGEAL REFLUX DISEASE WITHOUT ESOPHAGITIS Priority: Medium Current Visit: No Qualifiers: Esophagitis presence: esophagitis presence not specified Qualified Code(s) : K21.9 - Gastro-esophageal reflux disease without esophagitis (10) HLD (hyperlipidemia) SNOMED Code(s): 33662472 Code(s): E78.5 - HYPERLIPIDEMIA, UNSPECIFIED Priority: Low Current Visit : No Qualifiers: Hyperlipidemia type: unspecified Qualified Code(s): E78.5 - Hyperlipidemia , unspecified (11) Hiatal hernia SNOMED Code(s): 74326313 Code(s): K44.9 - DIAPHRAGMATIC HERNIA WITHOUT OBSTRUCTION OR GANGRENE Priority: Low Current Visit: No (12) Hypertension SNOMED Code(s): 25660580 Code(s): I10 - ESSENTIAL (PRIMARY) HYPERTENSION Priority: Medium Current Visit: No Qualifiers: Hypertension type: unspecified Qualified Code(s): I10 - Essential (primary ) hypertension (13) Hypothyroidism SNOMED Code(s): 76242340 Code(s): E03.9 - HYPOTHYROIDISM, UNSPECIFIED Priority: Low Current Visit : No Qualifiers: Hypothyroidism type: unspecified Qualified Code(s): E03.9 - Hypothyroidism , unspecified (14) Obstructive sleep apnea on CPAP SNOMED Code(s): 88771009 Code(s): G47.33 - OBSTRUCTIVE SLEEP APNEA (ADULT) (PEDIATRIC) Priority: Medium Current Visit: No (15) Osteoarthritis SNOMED Code(s): 870815576 Code(s): M19.90 - UNSPECIFIED OSTEOARTHRITIS, UNSPECIFIED SITE Priority: High Current Visit: Yes Qualifiers: Osteoarthritis location: hip Osteoarthritis type: primary Laterality: left Qualified Code(s): M16.12 - Unilateral primary osteoarthritis, left hip (16) Vitamin D deficiency SNOMED Code(s): 61386967 Code(s): E55.9 - VITAMIN D DEFICIENCY, UNSPECIFIED Priority: Low Current Visit: No Problem List Initiated/Reviewed/Updated: Yes Plan: I/P: Acute: S/P left total knee arthroplasty - post-operative day 0 -DVT prophylaxis and pain management per primary care team -PT/OT -IS/RT -Monitor oxygen saturation -Titrate oxygen as needed -Home medications reviewed and adjusted -Vital signs stable -Monitor labs -Pre-operative Hgb was 12.7 -Pre-operative GFR was 77 -Pre-operative A1C 7.1 Osteoarthritis of left knee -Pain management per primary care team Chronic: HLD hypertension asthma sleep apnea recurrent URIs GERD colitis dysphagia constipation hiatal hernia recurrent UTIs urinary incontinence hypertonicity of the bladder overactive bladder urge incontinence fibromyalgia osteoarthritis anxiety depression prior panic attacks type II DM hypothyroidism obesity vitamin D deficiency acne Plan: CM for discharge planning GI prophylaxis Home medications as indicated Other orders as listed above Routine AM labs She is a full code. Her PCP is Dr. Duenas Thank you for allowing us to participate in the care of this patient!! Requesting Provider: Dr. Solis Date Consult Requested: 08/23/18 Patient History Reviewed: Yes Admission H&P Reviewed: Yes Time Spent (in minutes): 30
[2018-08-23] MEDS ORDERED: Sodium Chloride 0.9% 10 ML Syringe FLUSH PRN (07:00)
[2018-08-23] MEDS ORDERED: Lactated Ringers 1,000 ML IV SCH (07:00)
[2018-08-23] MEDS ORDERED: Lidocaine 1%/Sod Bicarbonate in NS 8.4% 1 ML Syringe IDERM PRN (07:00)
--- NOTE | 2018-08-23 07:16 | PCM.PREANE ---
Preanesthetic Assessment - Anesthesia/Transfusion/Family Hx Anesthesia History: Prior Anesthesia Without Reaction Family History of Anesthesia Reaction: No Transfusion History: No Prior Transfusion(s) Intubation History: History of Difficulty Intubation (viewed anesthesia record from 2010, had to be awaken with procedure in [place] due to difficult airway ) - Review of Systems General: Other (BMI 46) Pulmonary: Shortness of Breath, Other (CPAP,MARCELLA, asthma) Cardiovascular: Other (HTN, EKG sr) Gastrointestinal: Other (GERD) Neurological: No Symptoms Other: Reports: Diabetes (HGB A1C 7.1, ), Thyroid Problems, Depression, Anxiety - Physical Assessment NPO Status Date: 08/22/18 NPO Status Time: 21:00 O2 Sat by Pulse Oximetry: 97 Respiratory Rate: 16 Vital Signs: Last Vital Signs Temp 36.5 C 08/23/18 06:00 Pulse 85 08/23/18 06:00 Resp 16 08/23/18 06:00 BP 96/46 L 08/23/18 06:00 Pulse Ox 97 08/23/18 06:00 Height: 1.57 m Weight: 112.491 kg ASA Class: 3 Mental Status: Alert & Oriented x3 Thyro-Mental Finger Breadths: 3 Mouth Opening Finger Breadths: 3 ROM/Head Extension: Full Lungs: Clear to Auscultation, Normal Respiratory Effort Cardiovascular: Regular Rate, Regular Rhythm - Lab Values: Laboratory Last Values POC Glucose 146 mg/dL (80-115) H 08/23/18 06:11 MRSA (PCR) Negative 08/10/18 11:14 - Allergies Allergies/Adverse Reactions: Allergies Allergy/AdvReac Type Severity Reaction Status Date / Time clarithromycin [From Biaxin] Allergy Rash Verified 08/20/18 13:47 levofloxacin [From Levaquin] Allergy Rash Verified 08/20/18 13:47 nitrofurantoin Allergy Rash Verified 08/20/18 13:47 [From Macrobid] nizatidine [From Axid] Allergy Itching Verified 08/20/18 13:47 Penicillins Allergy Rash Verified 08/20/18 13:47 Sulfa (Sulfonamide Allergy Rash Verified 08/20/18 13:47 Antibiotics) - Blood Blood Available: No Product(s) Available: None - Anesthesia Plan Pre-Op Medication Ordered: None - Acknowledgements Anesthesia Type Planned: General Anesthesia Pt an Appropriate Candidate for the Planned Anesthesia: Yes Alternatives and Risks of Anesthesia Discussed w Pt/Guardian: Yes Pt/Guardian Understands and Agrees with Anesthesia Plan: Yes PreAnesthesia Questionnaire HEENT History: Reports: Allergic Rhinitis, Impaired Vision, Sinusitis Other HEENT History: eye surgery for detached retina, wears glasses Cardiovascular History: Reports: High Cholesterol, Hypertension Respiratory History: Reports: Asthma, Sleep Apnea Other Respiratory History: Upper respiratory infections, Recurrent. 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 Musculoskeletal History: Reports: Fibromyalgia, Osteoarthritis Other Musculoskeletal History: L knee sprain, neck pain, R knee pain Neurological History: Reports: None Psychiatric History: Reports: Anxiety, Depression, Panic Attack Endocrine/Metabolic History: Reports: Diabetes, Type II, Hypothyroidism, Obesity /BMI 30+, Vitamin D Deficiency Hematologic History: Reports: None Immunologic History: Reports: None Oncologic (Cancer) History: Reports: None Other Dermatologic History: acne - Infectious Disease History Infectious Disease History: Reports: Chicken Pox, Influenza - Past Surgical History Head Surgeries/Procedures: Reports: None HEENT Surgical History: Reports: Eye Surgery, Retinal, Tonsillectomy Cardiovascular Surgical History: Reports: None Respiratory Surgical History: Reports: None GI Surgical History: Reports: Cholecystectomy, Colonoscopy, Hernia Repair/Other Female Surgical History: Reports: Hysterectomy Male Surgical History: Reports: None Endocrine Surgical History: Reports: None Other Endocrine Surgeries/Procedures: DEXA scan - awaiting results. Neurological Surgical History: Reports: None Musculoskeletal Surgical History: Reports: Arthroscopic Knee Other Musculoskeletal Surgeries/Procedures:: L foot surgery, knee surgeries in 00,07,10; lower back surgery, knee injections Oncologic Surgical History: Reports: None - SUBSTANCE USE Smoking Status *Q: Never Smoker Second Hand Smoke Exposure: No Recreational Drug Use History: No - HOME MEDS Home Medications: Home Meds DULoxetine HCl [Cymbalta] 60 mg PO DAILY 01/29/15 [History] Hydrochlorothiazide 25 mg PO DAILY 01/29/15 [History] Dulaglutide [Trulicity] 0.5 ml SQ SA 08/28/17 [History] Insulin Lispro [Humalog Kwikpen U-100] 15 units SQ TIDAC 08/28/17 [History] Cholecalciferol (Vitamin D3) [Vitamin D3] 5,000 units PO DAILY 08/31/17 [History ] Cyanocobalamin (Vitamin B12) [Vitamin B12] 500 mcg PO DAILY 08/31/17 [History] Lactobacillus Rhamnosus GG [Culturelle] 1 cap PO DAILY 08/31/17 [History] Levothyroxine 25 mcg PO ACBREAKFAST 09/01/17 [History] Ca Carbonate/Vitamin D3/Vit K [Calcium + D Soft Chewable Tab] 1 tab PO DAILY 07/09 [History] Insulin Degludec [Tresiba] 56 units SQ BEDTIME 07/24/18 [History] Lisinopril 10 mg PO DAILY 07/24/18 [History] Magnesium Oxide 250 mg PO DAILY 07/24/18 [History] Multivitamin [Daily Yamini] 1 tab PO DAILY 07/24/18 [History] Nitrofurantoin Monohyd/M-Cryst [Macrobid 100 mg Capsule] 100 mg PO MO 07/24/18 [ History] Darifenacin Hydrobromide [Darifenacin ER] 7.5 mg PO DAILY 08/20/18 [History] Fish Oil/[place]-3 Fatty Acids [Fish Oil 1,000 MG] 1 gm PO DAILY 08/20/18 [History ] Fluconazole [Diflucan] 100 mg PO DAILY 08/20/18 [History] atorvaSTATin Calcium [Lipitor] 20 mg PO BEDTIME 08/20/18 [History] - CURRENT (IN HOUSE) MEDS Current Meds: Current Medications Aspirin (Ecotrin) 325 mg PO BID NESTOR Bisacodyl (Dulcolax) 5 mg PO DAILY PRN PRN Reason: Constipation Morphine Sulfate 8 mg/Epinephrine HCl 0.3 mg/Cefuroxime Sodium 750 mg/Ketorolac Tromethamine 30 mg/Sodium Chloride 27.9 ml 0 mg .XX ONETIME ONE Stop: 08/23/18 07:36 Cyclobenzaprine HCl (Flexeril) 10 mg PO TID PRN PRN Reason: Spasms Docusate Sodium (Colace) 100 mg PO BID NESTOR Famotidine (Pepcid) 20 mg PO Q12H NESTOR Lactated Ringer's (Ringers, Lactated) 1,000 mls @ 125 mls/hr IV ASDIRECTED [facility] Stop: 08/23/18 23:00 Last Admin: 08/23/18 06:31 Dose: 125 mls/hr Cefazolin Sodium/Dextrose 2 gm (/ Premix) 50 mls @ 100 mls/hr IV Q8H [facility] Stop: 08/23/18 22:59 Ketorolac Tromethamine (Toradol) 15 mg IVPUSH Q6H PRN PRN Reason: Pain Lidocaine/Sodium Bicarbonate (Buffered Lidocaine 1% In Ns 8.4%) 0.25 ml IDERM ONETIME PRN PRN Reason: Prior to IV Start Stop: 08/23/18 18:00 Last Admin: 08/23/18 06:30 Dose: 0.25 ml Magnesium Hydroxide (Milk Of Magnesia) 30 ml PO BID PRN PRN Reason: Constipation Morphine Sulfate (Morphine) 2 mg IVPUSH Q2H PRN PRN Reason: Breakthrough Pain Naloxone HCl (Narcan) 0.1 mg IVPUSH Q5M PRN PRN Reason: Oversedation Ondansetron HCl (Zofran) 4 mg IVPUSH Q6H PRN PRN Reason: Nausea/Vomiting Oxycodone/Acetaminophen (Percocet 325-5 Mg) 1 - 2 tab PO Q4H PRN PRN Reason: Pain Senna (Senna) 8.6 mg PO BID PRN PRN Reason: Constipation Sodium Chloride (Saline Flush) 10 ml FLUSH ASDIRECTED PRN PRN Reason: Keep Vein Open Stop: 08/23/18 18:00 Discontinued Medications Acetaminophen (Tylenol) 975 mg PO ONETIME ONE Stop: 08/23/18 05:46 Last Admin: 08/23/18 06:17 Dose: 975 mg Bupivacaine HCl (Marcaine 0.25%) Confirm Administered Dose 30 ml .ROUTE .STK- MED ONE Stop: 08/23/18 06:48 Cefazolin Sodium (Ancef) Confirm Administered Dose 2 gm .ROUTE .STK-MED ONE Stop: 08/23/18 06:47 Iodine (Iodine 2% Mild Tincture) Confirm Administered Dose 30 ml .ROUTE .STK- MED ONE Stop: 08/23/18 06:48 Oxycodone HCl (Oxycontin) 10 mg PO ONETIME ONE Stop: 08/23/18 05:46 Last Admin: 08/23/18 06:17 Dose: 10 mg Pregabalin (Lyrica) 50 mg PO ONETIME ONE Stop: 08/23/18 05:46 Last Admin: 08/23/18 06:17 Dose: 50 mg Tranexamic Acid (Cyklokapron) Confirm Administered Dose 1,000 mg .ROUTE .STK- MED ONE Stop: 08/23/18 06:47 Vancomycin HCl (Vancomycin) Confirm Administered Dose 1 gm .ROUTE .STK-MED ONE Stop: 08/23/18 06:47
[2018-08-23] MEDS ORDERED: Propofol 200 MG/20 ML SDV ONE (07:17)
[2018-08-23] MEDS ORDERED: Midazolam 1 MG/ML 2 ML SDV ONE (07:17)
[2018-08-23] MEDS ORDERED: fentaNYL 100 MCG/2 ML SDV ONE (07:17)
[2018-08-23] MEDS ORDERED: Lidocaine 1% 2 ML ONE (07:17)
[2018-08-23] MEDS ORDERED: ceFAZolin 1 GM Vial ONE (07:19)
[2018-08-23] MEDS ORDERED: fentaNYL 250 MCG/5 ML SDV ONE (07:28)
[2018-08-23] MEDS ORDERED: HYDROmorphone 0.5 MG/0.5 ML Syringe ONE ×2 (07:28→08:19)
[2018-08-23] MEDS ORDERED: diphenhydrAMINE 50 MG/ML SDV IVPUSH PRN (08:15)
[2018-08-23] MEDS ORDERED: fentaNYL 100 MCG/2 ML SDV IVPUSH PRN (08:15)
[2018-08-23] MEDS ORDERED: EPINEPHrine 1 MG/ML SDV ONE (08:16)
[2018-08-23] MEDS ORDERED: Ropivacaine 0.5% 5 MG/ML 30 ML SDV ONE (08:16)
[2018-08-23] MEDS ORDERED: Phenylephrine/Normal Saline 100 MCG/ML 10 ML Syringe ONE ×2 (08:29→08:59)
[2018-08-23] MEDS: Iodine/Sodium Iodide 2% Tincture 30 ML Bottle ONE ×2 (08:33→08:43)
[2018-08-23] MEDS: ceFAZolin 1 GM Vial ONE ×2 (08:34→08:46)
[2018-08-23] MEDS: Bupivacaine 0.25% 30 ML SDV ONE ×2 (08:34→08:49)
[2018-08-23] MEDS: Morphine 8 MG, EPINEPHrine 0.3 MG, Cefuroxime 750 MG, Ketorolac 30 MG, Sodium Chloride ... ONE ×10 (08:35→08:49)
[2018-08-23] MEDS: Vancomycin 1 GM SDV ONE ×3 (08:38→08:55)
[2018-08-23] MEDS ORDERED: Lidocaine 1% 4 ML ONE (09:17)
[2018-08-23] MEDS ORDERED: Bisacodyl 5 MG Tab PO PRN (09:30)
[2018-08-23] MEDS ORDERED: Lactated Ringers 1,000 ML ONE (09:30)
[2018-08-23] MEDS ORDERED: Naloxone 0.4 MG/ML SDV IVPUSH PRN (09:30)
[2018-08-23] MEDS ORDERED: Morphine 2 MG/ML Syringe IVPUSH PRN (09:30)
[2018-08-23] MEDS ORDERED: Sennosides 8.6 MG Tab PO PRN (09:30)
[2018-08-23] MEDS ORDERED: Magnesium Hydroxide 400 MG/5 ML Susp 30 ML Cup PO PRN (09:30)
--- NOTE | 2018-08-23 09:38 | PCM.POSTAN ---
POST ANESTHESIA ASSESSMENT - MENTAL STATUS Mental Status: Alert, Oriented - VITAL SIGNS Pulse Rate: 99 SaO2: 100 Resp Rate: 18 Blood Pressure: 132/55 Temperature: 97.9 C - CARDIOVASCULAR CV Status: Pulse Rate WNL, Blood Pressure Stable - GASTROINTESTINAL GI Status: No Symptoms - PAIN Pain Score: 0 - POST OP HYDRATION Hydration Status: Adequate & Stable
[2018-08-23] MEDS: HYDROmorphone 0.5 MG/0.5 ML Syringe IVPUSH PRN ×2 (10:02→10:34)
--- NOTE | 2018-08-23 10:04 | PCM.SN ---
- Free Text/Narrative Note: Left selective femoral nerve block at the adductor canal for post-procedure pain control under US guidance requested by Dr. Solis. Time Out: 939 Start: 939 End: 954 Chart reviewed. Consent signed. Questions answered. Appropriate monitors applied. Time out performed. Left mid-shaft femur identified with ultrasound, scanning medially of femur, the femoral artery in the adductor canal visualized , and the femoral nerve located laterally to the artery. The skin was prepped lateral to the ultrasound probe with chlorahexadine times two. Visualization was difficult. The 21ga 4 insulated block needle was inserted under direct ultrasound guidance into the adductor canal. 25mL of 0.5% ropivacaine with 1: 200,000 epinephrine was injected circumferentially around the nerve with intermittent negative aspiration noted. Patient tolerated the procedure well. Sterile technique noted along with sterile gloves, mask, and sterile probe cover. See picture on progress note and vital signs on nurses notes. Block completed in PACU.
[2018-08-23] MEDS: Ondansetron 4 MG/2 ML SDV IVPUSH PRN (10:53)
--- NOTE | 2018-08-23 11:33 | CR ---
Left knee: AP and lateral views of the left knee were obtained. Comparison: No prior left knee exam. Knee prosthesis is seen. Components are aligned. Soft tissue air is noted from the surgical procedure. Underlying bony structures appear to be intact. Lucency is seen within the proximal tibia in the AP view believed to be due to overlapping air causing some artifact. Impression: 1. Recently placed left knee prosthesis as noted above. Diagnostic code #2
[2018-08-23] MEDS: Acetaminophen/oxyCODONE 325-5 MG Tab PO PRN ×3 (11:34→20:29)
[2018-08-23] MEDS ORDERED: Glycopyrrolate 0.2 MG/ML SDV ONE (13:44)
[2018-08-23] MEDS ORDERED: Neostigmine Methylsulfate 1 MG/ML 5 ML Syringe ONE (13:44)
[2018-08-23] MEDS: ceFAZolin 2 GM in Premix Bag 1 BAG IV SCH ×2 (14:45→22:11)
[2018-08-23] MEDS: Insulin Lispro 100 Units/ML 3 ML Vial SUBCUT SCH ×3 (14:47→20:44)
--- NOTE | 2018-08-23 16:54 | PCM.OPNOTE ---
- General Post-Op/Procedure Note Date of Surgery/Procedure: 08/23/18 Operative Procedure(s): left total knee arthroplasty Pre Op Diagnosis: left knee osteoarthrosis Post-Op Diagnosis: Same Anesthesia Technique: General ET Tube, Local Primary Surgeon: Varinder Solis Anesthesia Provider: Neva Peterson Sandblaster Supervisor: Alisha Menon Sandblaster Supervisor: Gemma Sidhu EBL in mLs: 50 Complications: None Condition: Good Free Text/Narrative:: Intake & Output 08/23/18 08/23/18 08/23/18 06:59 14:59 22:59 Intake Total 410 250 Output Total 2 Balance 410 248 32 patella cemented 3/3 9mm
[2018-08-23] MEDS ORDERED: Insulin Lispro 100 Units/ML 3 ML Vial SUBCUT SCH (17:00)
[2018-08-23] MEDS: Famotidine 20 MG Tab PO SCH (20:29)
[2018-08-23] MEDS: Docusate Sodium 100 MG Cap PO SCH (20:29)
[2018-08-23] MEDS ORDERED: INSULIN DEGLUDEC 56 UNIT SUBCUT SCH (21:00)
[2018-08-23] MEDS: Cyclobenzaprine 10 MG Tab PO PRN (22:14)
[2018-08-24] MEDS: Insulin Lispro 100 Units/ML 3 ML Vial SUBCUT SCH ×4 (00:56→12:11)
[2018-08-24] MEDS: Acetaminophen/oxyCODONE 325-5 MG Tab PO PRN ×2 (03:05→07:23)
[2018-08-24] MEDS: Ketorolac 15 MG/ML SDV IVPUSH PRN ×2 (04:10→12:04)
[2018-08-24] MEDS: Ondansetron 4 MG/2 ML SDV IVPUSH PRN (04:44)
[2018-08-24] MEDS ORDERED: Levothyroxine 25 MCG Tab PO SCH (06:00)
[2018-08-24] MEDS: ceFAZolin 2 GM in Premix Bag 1 BAG IV SCH (06:33)
--- NOTE | 2018-08-24 06:33 | PCM.CONSN ---
- General Info Date of Service: 08/24/18 Admission Dx/Problem (Free Text): Admission Diagnosis/Problem Admission Diagnosis/Problem Osteoarthritis of knee Functional Status: Reports: Pain Controlled, Tolerating Diet, Ambulating, Urinating, Incentive Spirometry. Denies: New Symptoms - Review of Systems General: Reports: No Symptoms. Denies: Fever, Chills HEENT: Reports: No Symptoms, Sore Throat (mild). Denies: Headaches Pulmonary: Reports: No Symptoms. Denies: Shortness of Breath, Pleuritic Chest Pain, Cough, Sputum, Wheezing Cardiovascular: Reports: No Symptoms. Denies: Chest Pain, Palpitations, Dyspnea on Exertion, Edema Gastrointestinal: Reports: No Symptoms. Denies: Abdominal Pain, Constipation, Diarrhea, Nausea, Vomiting 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: Reports: No Symptoms. Denies: Pain Musculoskeletal: Reports: Leg Pain Skin: Reports: No Symptoms. Denies: Cyanosis Neurological: Reports: No Symptoms. Denies: Confusion Psychiatric: Reports: No Symptoms - Patient Data Vitals - Most Recent: Last Vital Signs Temp 99.0 F 08/24/18 03:24 Pulse 97 08/24/18 03:24 Resp 14 08/24/18 03:24 BP 124/64 08/24/18 03:24 Pulse Ox 100 08/24/18 03:24 Weight - Most Recent: 255 lb 11.2 oz I&O - Last 24 Hours: Intake & Output 08/23/18 08/23/18 08/24/18 14:59 22:59 06:59 Intake Total 410 250 120 Output Total 2 Balance 410 248 120 Lab Results Last 24 Hours: Laboratory Results - last 24 hr 08/23/18 08/23/18 08/24/18 Range/Units 13:12 20:42 04:45 WBC 9.67 (3.98-10.04) K/mm3 RBC 4.05 (3.98-5.22) M/mm3 Hgb 10.7 L (11.2-15.7) gm/L Hct 35.2 (34.1-44.9) % MCV 86.9 (79.4-94.8) fl MCH 26.4 (25.6-32.2) pg MCHC 30.4 L (32.2-35.5) g/dl RDW Std Deviation 45.3 (36.4-46.3) fL Plt Count 188 (182-369) K/mm3 MPV 9.7 (9.4-12.3) fl Sodium (136-145) mEq/L Potassium (3.5-5.1) mEq/L Chloride (98-107) mEq/L Carbon Dioxide (21-32) mEq/L Anion Gap (5-15) BUN (7-18) mg/dL Creatinine (0.55-1.02) mg/dL Est Cr Clr Drug Dosing mL/min Estimated GFR (MDRD) (>60) mL/min BUN/Creatinine Ratio (14-18) Glucose (80-115) mg/dL POC Glucose 148 H 112 (80-115) mg/dL Calcium (8.5-10.1) mg/dL Total Bilirubin (0.2-1.0) mg/dL AST (15-37) U/L ALT (14-59) U/L Alkaline Phosphatase (46-116) U/L Total Protein (6.4-8.2) g/dl Albumin (3.4-5.0) g/dl Globulin gm/dL Albumin/Globulin Ratio (1-2) // Range/Units 04:45 WBC (3.98-10.04) K/mm3 RBC (3.98-5.22) M/mm3 Hgb (11.2-15.7) gm/L Hct (34.1-44.9) % MCV (79.4-94.8) fl MCH (25.6-32.2) pg MCHC (32.2-35.5) g/dl RDW Std Deviation (36.4-46.3) fL Plt Count (182-369) K/mm3 MPV (9.4-12.3) fl Sodium 137 (136-145) mEq/L Potassium 4.1 (3.5-5.1) mEq/L Chloride 101 (98-107) mEq/L Carbon Dioxide 27 (21-32) mEq/L Anion Gap 13.1 (5-15) BUN 24 H (7-18) mg/dL Creatinine 0.9 (0.55-1.02) mg/dL Est Cr Clr Drug Dosing 51.26 mL/min Estimated GFR (MDRD) > 60 (>60) mL/min BUN/Creatinine Ratio 26.7 H (14-18) Glucose 192 H (80-115) mg/dL POC Glucose (80-115) mg/dL Calcium 8.6 (8.5-10.1) mg/dL Total Bilirubin 0.7 (0.2-1.0) mg/dL AST 65 H (15-37) U/L ALT 58 (14-59) U/L Alkaline Phosphatase 103 (46-116) U/L Total Protein 6.5 (6.4-8.2) g/dl Albumin 2.7 L (3.4-5.0) g/dl Globulin 3.8 gm/dL Albumin/Globulin Ratio 0.7 L (1-2) Med Orders - Current: Current Medications Aspirin (Ecotrin) 325 mg PO BID [facility] Bisacodyl (Dulcolax) 5 mg PO DAILY PRN PRN Reason: Constipation Calcium Carbonate (Calcium Carbonate/Vitamin D 600 Mg-200 Unit) 1 tab PO DAILY [facility] Cholecalciferol (Vitamin D3) 5,000 unit PO DAILY [facility] Cyanocobalamin (Vitamin B12) 500 mcg PO DAILY [facility] Cyclobenzaprine HCl (Flexeril) 10 mg PO TID PRN PRN Reason: Spasms Last Admin: 08/23/18 22:14 Dose: 10 mg Docusate Sodium (Colace) 100 mg PO BID [facility] Last Admin: 08/23/18 20:29 Dose: 100 mg Duloxetine HCl (Cymbalta) 60 mg PO DAILY [facility] Famotidine (Pepcid) 20 mg PO Q12H [facility] Last Admin: 08/23/18 20:29 Dose: 20 mg Fluconazole (Diflucan) 100 mg PO DAILY [facility] Cefazolin Sodium/Dextrose 2 gm (/ Premix) 50 mls @ 100 mls/hr IV Q8H [facility] Stop: 08/24/18 07:29 Last Admin: 08/23/18 22:11 Dose: 100 mls/hr Insulin Human Lispro (Humalog) 0 unit SUBCUT QIDACANDBED [facility]; Protocol Last Admin: 08/24/18 00:56 Dose: Not Given Insulin Human Lispro (Humalog) 7 unit SUBCUT TID [facility] Last Admin: 08/23/18 20:44 Dose: 7 units Ketorolac Tromethamine (Toradol) 15 mg IVPUSH Q6H PRN PRN Reason: Pain Last Admin: 08/24/18 04:10 Dose: 15 mg Levothyroxine Sodium (Levothyroxine) 25 mcg PO ACBREAKFAST [facility] Magnesium Hydroxide (Milk Of Magnesia) 30 ml PO BID PRN PRN Reason: Constipation Magnesium Oxide (Magnesium Oxide) 400 mg PO DAILY [facility] Morphine Sulfate (Morphine) 2 mg IVPUSH Q2H PRN PRN Reason: Breakthrough Pain Multivitamins (Thera) 1 each PO DAILY [facility] Naloxone HCl (Narcan) 0.1 mg IVPUSH Q5M PRN PRN Reason: Oversedation Ondansetron HCl (Zofran) 4 mg IVPUSH Q6H PRN PRN Reason: Nausea/Vomiting Last Admin: 08/24/18 04:44 Dose: 4 mg Oxycodone/Acetaminophen (Percocet 325-5 Mg) 1 - 2 tab PO Q4H PRN PRN Reason: Pain Last Admin: 08/24/18 03:05 Dose: 2 tab Darifenacin Er 7.5 (Mg) 0 each PO DAILY [facility] Dulaglutide [ (Trulicity] 0.5 Ml) 0 each SUBCUT SA [facility] Insulin Degludec [ (Tresiba] 56 Units) 0 each SUBCUT BEDTIME [facility] Last Admin: 08/23/18 20:45 Dose: 56 each Senna (Senna) 8.6 mg PO BID PRN PRN Reason: Constipation Discontinued Medications Acetaminophen (Tylenol) 975 mg PO ONETIME ONE Stop: 08/23/18 05:46 Last Admin: 08/23/18 06:17 Dose: 975 mg Bupivacaine HCl (Marcaine 0.25%) Confirm Administered Dose 30 ml .ROUTE .STK- MED ONE Stop: 08/23/18 06:48 Last Admin: 08/23/18 08:49 Dose: 30 ml Cefazolin Sodium (Ancef) Confirm Administered Dose 2 gm .ROUTE .STK-MED ONE Stop: 08/23/18 06:47 Last Admin: 08/23/18 08:46 Dose: 2 gm Cefazolin Sodium (Ancef) Confirm Administered Dose 2 gm .ROUTE .STK-MED ONE Stop: 08/23/18 07:20 Morphine Sulfate 8 mg/Epinephrine HCl 0.3 mg/Cefuroxime Sodium 750 mg/Ketorolac Tromethamine 30 mg/Sodium Chloride 27.9 ml 0 mg .XX ONETIME ONE Stop: 08/23/18 07:36 Last Admin: 08/23/18 08:49 Dose: 788.3 mg Diphenhydramine HCl (Benadryl) 25 mg IVPUSH Q6H PRN PRN Reason: itching Stop: 08/23/18 18:00 Epinephrine HCl (Adrenalin) Confirm Administered Dose 1 mg .ROUTE .STK-MED ONE Stop: 08/23/18 08:17 Fentanyl (Sublimaze) Confirm Administered Dose 100 mcg .ROUTE .STK-MED ONE Stop: 08/23/18 07:18 Fentanyl (Sublimaze) Confirm Administered Dose 250 mcg .ROUTE .STK-MED ONE Stop: 08/23/18 07:29 Fentanyl (Sublimaze) 50 mcg IVPUSH Q5M PRN PRN Reason: pain Stop: 08/23/18 18:00 Last Admin: 08/23/18 09:50 Dose: 50 mcg Glycopyrrolate (Robinul) Confirm Administered Dose 0.4 mg .ROUTE .STK-MED ONE Stop: 08/23/18 13:45 Hydromorphone HCl (Dilaudid) Confirm Administered Dose 0.5 mg .ROUTE .STK-MED ONE Stop: 08/23/18 07:29 Hydromorphone HCl (Dilaudid) 0.5 mg IVPUSH Q15M PRN PRN Reason: Pain (severe 7-10) Stop: 08/23/18 18:00 Last Admin: 08/23/18 10:34 Dose: 0.5 mg Hydromorphone HCl (Dilaudid) Confirm Administered Dose 0.5 mg .ROUTE .STK-MED ONE Stop: 08/23/18 08:20 Lactated Ringer's (Ringers, Lactated) 1,000 mls @ 125 mls/hr IV ASDIRECTED NESTOR Stop: 08/23/18 23:00 Last Admin: 08/23/18 06:31 Dose: 125 mls/hr Lidocaine HCl (Xylocaine-Mpf 1%) Confirm Administered Dose 2 mls @ as directed .ROUTE .STK-MED ONE Stop: 08/23/18 07:18 Lidocaine HCl (Xylocaine-Mpf 1%) Confirm Administered Dose 4 mls @ as directed .ROUTE .STK-MED ONE Stop: 08/23/18 09:18 Lactated Ringer's (Ringers, Lactated) Confirm Administered Dose 1,000 mls @ as directed .ROUTE .STK-MED ONE Stop: 08/23/18 09:31 Insulin Human Lispro (Humalog) 15 unit SUBCUT TIDAC NESTOR Iodine (Iodine 2% Mild Tincture) Confirm Administered Dose 30 ml .ROUTE .STK- MED ONE Stop: 08/23/18 06:48 Last Admin: 08/23/18 08:43 Dose: 18 ml Lidocaine/Sodium Bicarbonate (Buffered Lidocaine 1% In Ns 8.4%) 0.25 ml IDERM ONETIME PRN PRN Reason: Prior to IV Start Stop: 08/23/18 18:00 Last Admin: 08/23/18 06:30 Dose: 0.25 ml Midazolam HCl (Versed 1 Mg/Ml) Confirm Administered Dose 2 mg .ROUTE .STK-MED ONE Stop: 08/23/18 07:18 Neostigmine Methylsulfate (Neostigmine) Confirm Administered Dose 5 mg .ROUTE .STK-MED ONE Stop: 08/23/18 13:45 Oxycodone HCl (Oxycontin) 10 mg PO ONETIME ONE Stop: 08/23/18 05:46 Last Admin: 08/23/18 06:17 Dose: 10 mg Phenylephrine HCl (Phenylephrine In Ns 100 Mcg/Ml) Confirm Administered Dose 1 mg .ROUTE .STK-MED ONE Stop: 08/23/18 08:30 Phenylephrine HCl (Phenylephrine In Ns 100 Mcg/Ml) Confirm Administered Dose 1 mg .ROUTE .STK-MED ONE Stop: 08/23/18 09:00 Pregabalin (Lyrica) 50 mg PO ONETIME ONE Stop: 08/23/18 05:46 Last Admin: 08/23/18 06:17 Dose: 50 mg Propofol (Diprivan 20 Ml) Confirm Administered Dose 600 mg .ROUTE .STK-MED ONE Stop: 08/23/18 07:18 Ropivacaine (Naropin 0.5%) Confirm Administered Dose 30 ml .ROUTE .STK-MED ONE Stop: 08/23/18 08:17 Sodium Chloride (Saline Flush) 10 ml FLUSH ASDIRECTED PRN PRN Reason: Keep Vein Open Stop: 08/23/18 18:00 Tranexamic Acid (Cyklokapron) Confirm Administered Dose 1,000 mg .ROUTE .STK- MED ONE Stop: 08/23/18 06:47 Last Admin: 08/23/18 09:00 Dose: 1,000 mg Vancomycin HCl (Vancomycin) Confirm Administered Dose 1 gm .ROUTE .STK-MED ONE Stop: 08/23/18 06:47 Last Admin: 08/23/18 08:53 Dose: 1 gm - Exam Quality Assessment: Supplemental Oxygen (1L), DVT Prophylaxis General: Alert, Oriented, Cooperative, No Acute Distress HEENT: Pupils Equal, Pupils Reactive, EOMI, Mucous Membr. Moist/Bear Neck: Supple, Trachea Midline, No JVD Lungs: Clear to Auscultation, Normal Respiratory Effort Cardiovascular: Regular Rate, Regular Rhythm GI/Abdominal Exam: Normal Bowel Sounds, Soft, Non-Tender, No Organomegaly, No Distention (Female) Exam: Deferred Back Exam: Normal Inspection, Full Range of Motion Extremities: Normal Capillary Refill, Leg Pain, Limited Range of Motion, Other ( Bandage in place on left leg. Cooling pack in place. ) Peripheral Pulses: 2+: Radial (L), Radial (R), Dorsalis Pedis (L), Dorsalis Pedis (R) Skin: Warm, Dry, Intact Wound/Incisions: Dressing Dry and Intact, No Drainage Neurological: No New Focal Deficit Psy/Mental Status: Alert, Normal Affect, Normal Mood Consult PN Assessment/Plan POD#: 1 Procedures: Procedures AGENT NOS ASSAY W/OPTIC (07/09/16) ASSAY OF FREE THYROXINE (06/29/13) ASSAY OF LIPASE (03/03/16) ASSAY OF NATRIURETIC PEPTIDE (03/03/16) ASSAY OF TROPONIN QUANT (06/03/16) ASSAY THYROID STIM HORMONE (06/29/13) BLOOD TYPING SEROLOGIC ABO (01/30/15) BLOOD TYPING SEROLOGIC RH(D) (01/30/15) C DIFF AMPLIFIED PROBE (07/09/16) C-REACTIVE PROTEIN (06/15/18) CARDIOVASCULAR STRESS TEST (06/17/16) CHEST X-RAY 1 VIEW FRONTAL (03/03/16) COLONOSCOPY AND BIOPSY (07/09/16) COMP SCREEN MAMMOGRAM ADD-ON (06/21/13) COMPLETE CBC W/AUTO DIFF WBC (06/15/18) COMPREHEN METABOLIC PANEL (03/03/16) CREATINE MB FRACTION (03/03/16) CRYPTOSPORIDIUM AG IA (07/09/16) DXA BONE DENSITY AXIAL (08/14/17) EGD BIOPSY SINGLE/MULTIPLE (07/09/16) ELECTROCARDIOGRAM TRACING (03/03/16) EMERGENCY DEPT VISIT (03/03/16) EVALUATE PT USE OF INHALER (01/30/15) FIBRIN DEGRADATION QUANT (03/03/16) GAIT TRAINING THERAPY (08/10/18) GIARDIA AG IA (07/09/16) GLUCOSE BLOOD TEST (01/30/15) HT MUSCLE IMAGE SPECT MULT (06/17/16) HYSTEROSCOPY BIOPSY (07/08/13) LEUKOCYTE ASSESSMENT FECAL (07/09/16) MAMMOGRAM SCREENING (06/21/13) MASSAGE THERAPY (10/19/17) MEDICAL NUTRITION INDIV IN (04/06/18) MR-STAPH DNA AMP PROBE (07/16/18) NEUROMUSCULAR REEDUCATION (08/10/18) PT EVAL LOW COMPLEX 20 MIN (08/10/18) PT EVAL MOD COMPLEX 30 MIN (09/17/17) RBC ANTIBODY SCREEN (01/30/15) RBC SED RATE AUTOMATED (06/15/18) ROUTINE VENIPUNCTURE (06/15/18) SMEAR WET MOUNT SALINE/INK (01/18/18) STOOL CULTR AEROBIC BACT EA (07/09/16) THERAPEUTIC ACTIVITIES (08/10/18) THERAPEUTIC EXERCISES (08/10/18) TISSUE EXAM BY PATHOLOGIST (07/09/16) TISSUE EXAM BY PATHOLOGIST (01/30/15) TISSUE EXAM BY PATHOLOGIST (12/11/14) TRICHOMONAS ASSAY W/OPTIC (01/18/18) URINALYSIS AUTO W/O SCOPE (06/29/13) URINALYSIS AUTO W/SCOPE (01/19/18) URINE CULTURE/COLONY COUNT (01/19/18) US EXAM PELVIC COMPLETE (06/21/13) VAGINAL HYSTERECTOMY (01/30/15) (1) S/P total hip arthroplasty SNOMED Code(s): 421834039788, 165265292354 Code(s): Z96.649 - PRESENCE OF UNSPECIFIED ARTIFICIAL HIP JOINT Priority: High Current Visit: Yes Qualifiers: Laterality: left Qualified Code(s): Z96.642 - Presence of left artificial hip joint (2) Anxiety disorder SNOMED Code(s): 425351141 Code(s): F41.9 - ANXIETY DISORDER, UNSPECIFIED Priority: Medium Current Visit: No Qualifiers: Anxiety disorder type: generalized anxiety disorder Qualified Code(s): F41.1 - Generalized anxiety disorder (3) Asthma SNOMED Code(s): 269162950 Code(s): J45.909 - UNSPECIFIED ASTHMA, UNCOMPLICATED Priority: Low Current Visit: No Qualifiers: Asthma complication type: unspecified (4) Colitis determined by colorectal biopsy SNOMED Code(s): 60731338, 175568815 Code(s): K52.9 - NONINFECTIVE GASTROENTERITIS AND COLITIS, UNSPECIFIED Priority: Low Current Visit: No (5) Depression SNOMED Code(s): 16301745 Code(s): F32.9 - MAJOR DEPRESSIVE DISORDER, SINGLE EPISODE, UNSPECIFIED Priority: Low Current Visit: No Qualifiers: Depression Type: other depression Qualified Code(s): F32.89 - Other specified depressive episodes (6) Diabetes mellitus type 2 in obese SNOMED Code(s): 94712588 Code(s): E11.9 - TYPE 2 DIABETES MELLITUS WITHOUT COMPLICATIONS; E66.9 - OBESITY, UNSPECIFIED Priority: Medium Current Visit: No (7) Epigastric pain SNOMED Code(s): 37721497 Code(s): R10.13 - EPIGASTRIC PAIN Current Visit: No (8) Fibromyalgia SNOMED Code(s): 096481468 Code(s): M79.7 - FIBROMYALGIA Priority: Low Current Visit: No (9) GERD (gastroesophageal reflux disease) SNOMED Code(s): 966614741 Code(s): K21.9 - GASTRO-ESOPHAGEAL REFLUX DISEASE WITHOUT ESOPHAGITIS Priority: Medium Current Visit: No Qualifiers: Esophagitis presence: esophagitis presence not specified Qualified Code(s) : K21.9 - Gastro-esophageal reflux disease without esophagitis (10) HLD (hyperlipidemia) SNOMED Code(s): 59887126 Code(s): E78.5 - HYPERLIPIDEMIA, UNSPECIFIED Priority: Low Current Visit : No Qualifiers: Hyperlipidemia type: unspecified Qualified Code(s): E78.5 - Hyperlipidemia , unspecified (11) Hiatal hernia SNOMED Code(s): 36965851 Code(s): K44.9 - DIAPHRAGMATIC HERNIA WITHOUT OBSTRUCTION OR GANGRENE Priority: Low Current Visit: No (12) Hypertension SNOMED Code(s): 84779110 Code(s): I10 - ESSENTIAL (PRIMARY) HYPERTENSION Priority: Medium Current Visit: No Qualifiers: Hypertension type: unspecified Qualified Code(s): I10 - Essential (primary ) hypertension (13) Hypothyroidism SNOMED Code(s): 37995240 Code(s): E03.9 - HYPOTHYROIDISM, UNSPECIFIED Priority: Low Current Visit : No Qualifiers: Hypothyroidism type: unspecified Qualified Code(s): E03.9 - Hypothyroidism , unspecified (14) Obstructive sleep apnea on CPAP SNOMED Code(s): 09906855 Code(s): G47.33 - OBSTRUCTIVE SLEEP APNEA (ADULT) (PEDIATRIC) Priority: Medium Current Visit: No (15) Osteoarthritis SNOMED Code(s): 526488102 Code(s): M19.90 - UNSPECIFIED OSTEOARTHRITIS, UNSPECIFIED SITE Priority: High Current Visit: Yes Qualifiers: Osteoarthritis location: hip Osteoarthritis type: primary Laterality: left Qualified Code(s): M16.12 - Unilateral primary osteoarthritis, left hip (16) Vitamin D deficiency SNOMED Code(s): 59843284 Code(s): E55.9 - VITAMIN D DEFICIENCY, UNSPECIFIED Priority: Low Current Visit: No Problem List Initiated/Reviewed/Updated: Yes My Orders Last 24 Hours: My Active Orders 08/23/18 13:24 Accu Check [Blood Glucose Check, Bedside] [RC] QIDACANDBED CPAP Noctural Home [RT BiPAP/CPAP] [RC] ASDIRECTED 08/23/18 15:00 Insulin Lispro [HumaLOG] 7 unit SUBCUT TID 08/23/18 17:00 Insulin Lispro [HumaLOG] See Protocol SUBCUT QIDACANDBED 08/23/18 21:00 Patient's Own Medication [Ptom] 0 each SUBCUT BEDTIME 08/24/18 06:00 Levothyroxine 25 mcg PO ACBREAKFAST 08/24/18 09:00 Calcium Carbonate/Vitamin D3 [Calcium Carbonate/Vitamin D 600 MG-200 Unit] 1 tab PO DAILY Cholecalciferol (Vitamin D3) [Vitamin D3] 5,000 unit PO DAILY Cyanocobalamin (Vitamin B12) [Vitamin B12] 500 mcg PO DAILY DULoxetine [Cymbalta] 60 mg PO DAILY Fluconazole [Diflucan] 100 mg PO DAILY Magnesium Oxide 400 mg PO DAILY Multivitamins,Therapeutic [Thera] 1 each PO DAILY Patient's Own Medication [Ptom] 0 each PO DAILY 08/28/18 08:00 Patient's Own Medication [Ptom] 0 each SUBCUT SA Plan: I/P: Acute: S/P left total knee arthroplasty - post-operative day 1 -DVT prophylaxis and pain management per primary care team -PT/OT -IS/RT -Monitor oxygen saturation -Titrate oxygen as needed -Home medications reviewed and adjusted -Vital signs stable -Monitor labs -Pre-operative Hgb was 12.7; Now 10.7 -Pre-operative GFR was 77; Now >60 -Pre-operative A1C 7.1 Osteoarthritis of left knee -Pain management per primary care team Chronic: HLD hypertension asthma sleep apnea recurrent URIs GERD colitis dysphagia constipation hiatal hernia recurrent UTIs urinary incontinence hypertonicity of the bladder overactive bladder urge incontinence fibromyalgia osteoarthritis anxiety depression prior panic attacks type II DM hypothyroidism obesity vitamin D deficiency acne Plan: CM for discharge planning GI prophylaxis Home medications as indicated Other orders as listed above Routine AM labs She is a full code. Her PCP is Dr. Duenas Overall from a hospitalist standpoint Shanna is doing pretty well. She has been up ambulating and working with therapies. Unfortunately we have been unable to wean her off of oxygen. She has been using her IS. Lung sounds are clear and she is not short of breath. She reports she was on oxygen after discharge for her last surgery for a few days and she does have a concentrator at home. RT has been working with her. We will discharge her on 1L of home O2 continuous with 2L at activity. This will Otherwise she has been eating well. She has urinated. She will be discharged today. She should follow-up with her PCP within 3-5 days of discharge regarding her oxygen needs. Thank you for allowing us to participate in the care of this patient!!
--- NOTE | 2018-08-24 07:51 | PCM48HPAN ---
Post Anesthesia Note - EVALUATION WITHIN 48HRS OF ANESTHETIC Vital Signs in Normal Range: Yes Patient Participated in Evaluation: Yes Respiratory Function Stable: Yes Airway Patent: Yes Cardiovascular Function Stable: Yes Hydration Status Stable: Yes Pain Control Satisfactory: Yes Nausea and Vomiting Control Satisfactory: Yes Mental Status Recovered: Yes - COMMENTS/OBSERVATIONS Free Text/Narrative:: Patient doing well despite worse pain this time compared to last total knee, Monica GARCIA present and informed. Patient states tongue is a bit numb this morning but patent denies any c/o and acknowledges her history of being a difficult intubation in the past. Patient in good spirits, additional pain medications added per PA, patient doing well.
[2018-08-24] MEDS ORDERED: oxyCODONE 5 MG Tab PO PRN (07:57)
--- NOTE | 2018-08-24 08:06 | PCM.SURGPN ---
- General Info Date of Service: 08/24/18 POD#: 1 Functional Status: Reports: Tolerating Diet, Ambulating, Urinating, Incentive Spirometry, Other (The states she "got behind the pain" last night. Some improvement noted this morning.) - Patient Data Vitals - Most Recent: Last Vital Signs Temp 99.0 F 08/24/18 03:24 Pulse 97 08/24/18 03:24 Resp 14 08/24/18 03:24 BP 124/64 08/24/18 03:24 Pulse Ox 100 08/24/18 03:24 Weight - Most Recent: 255 lb 11.2 oz I&O - Last 24 Hours: Intake & Output 08/23/18 08/24/18 08/24/18 22:59 06:59 14:59 Intake Total 430 120 Output Total 2 Balance 428 120 Lab Results Last 24 Hrs: Laboratory Results - last 24 hr 08/23/18 08/23/18 08/24/18 Range/Units 13:12 20:42 04:45 WBC 9.67 (3.98-10.04) K/mm3 RBC 4.05 (3.98-5.22) M/mm3 Hgb 10.7 L (11.2-15.7) gm/L Hct 35.2 (34.1-44.9) % MCV 86.9 (79.4-94.8) fl MCH 26.4 (25.6-32.2) pg MCHC 30.4 L (32.2-35.5) g/dl RDW Std Deviation 45.3 (36.4-46.3) fL Plt Count 188 (182-369) K/mm3 MPV 9.7 (9.4-12.3) fl Sodium (136-145) mEq/L Potassium (3.5-5.1) mEq/L Chloride (98-107) mEq/L Carbon Dioxide (21-32) mEq/L Anion Gap (5-15) BUN (7-18) mg/dL Creatinine (0.55-1.02) mg/dL Est Cr Clr Drug Dosing mL/min Estimated GFR (MDRD) (>60) mL/min BUN/Creatinine Ratio (14-18) Glucose (80-115) mg/dL POC Glucose 148 H 112 (80-115) mg/dL Calcium (8.5-10.1) mg/dL Total Bilirubin (0.2-1.0) mg/dL AST (15-37) U/L ALT (14-59) U/L Alkaline Phosphatase (46-116) U/L Total Protein (6.4-8.2) g/dl Albumin (3.4-5.0) g/dl Globulin gm/dL Albumin/Globulin Ratio (1-2) 08/24/18 08/24/18 Range/Units 04:45 06:31 WBC (3.98-10.04) K/mm3 RBC (3.98-5.22) M/mm3 Hgb (11.2-15.7) gm/L Hct (34.1-44.9) % MCV (79.4-94.8) fl MCH (25.6-32.2) pg MCHC (32.2-35.5) g/dl RDW Std Deviation (36.4-46.3) fL Plt Count (182-369) K/mm3 MPV (9.4-12.3) fl Sodium 137 (136-145) mEq/L Potassium 4.1 (3.5-5.1) mEq/L Chloride 101 (98-107) mEq/L Carbon Dioxide 27 (21-32) mEq/L Anion Gap 13.1 (5-15) BUN 24 H (7-18) mg/dL Creatinine 0.9 (0.55-1.02) mg/dL Est Cr Clr Drug Dosing 51.26 mL/min Estimated GFR (MDRD) > 60 (>60) mL/min BUN/Creatinine Ratio 26.7 H (14-18) Glucose 192 H (80-115) mg/dL POC Glucose 195 H (80-115) mg/dL Calcium 8.6 (8.5-10.1) mg/dL Total Bilirubin 0.7 (0.2-1.0) mg/dL AST 65 H (15-37) U/L ALT 58 (14-59) U/L Alkaline Phosphatase 103 (46-116) U/L Total Protein 6.5 (6.4-8.2) g/dl Albumin 2.7 L (3.4-5.0) g/dl Globulin 3.8 gm/dL Albumin/Globulin Ratio 0.7 L (1-2) Med Orders - Current: Current Medications Aspirin (Ecotrin) 325 mg PO BID [facility] Bisacodyl (Dulcolax) 5 mg PO DAILY PRN PRN Reason: Constipation Calcium Carbonate (Calcium Carbonate/Vitamin D 600 Mg-200 Unit) 1 tab PO DAILY [facility] Cholecalciferol (Vitamin D3) 5,000 unit PO DAILY [facility] Cyanocobalamin (Vitamin B12) 500 mcg PO DAILY [facility] Cyclobenzaprine HCl (Flexeril) 10 mg PO TID PRN PRN Reason: Spasms Last Admin: 08/23/18 22:14 Dose: 10 mg Docusate Sodium (Colace) 100 mg PO BID [facility] Last Admin: 08/23/18 20:29 Dose: 100 mg Duloxetine HCl (Cymbalta) 60 mg PO DAILY [facility] Famotidine (Pepcid) 20 mg PO Q12H [facility] Last Admin: 08/23/18 20:29 Dose: 20 mg Fluconazole (Diflucan) 100 mg PO DAILY [facility] Insulin Human Lispro (Humalog) 0 unit SUBCUT QIDACANDBED [facility]; Protocol Last Admin: 08/24/18 07:25 Dose: 1 unit Insulin Human Lispro (Humalog) 7 unit SUBCUT TID [facility] Last Admin: 08/23/18 20:44 Dose: 7 units Ketorolac Tromethamine (Toradol) 15 mg IVPUSH Q6H PRN PRN Reason: Pain Last Admin: 08/24/18 04:10 Dose: 15 mg Levothyroxine Sodium (Levothyroxine) 25 mcg PO ACBREAKFAST [facility] Last Admin: 08/24/18 06:33 Dose: 25 mcg Magnesium Hydroxide (Milk Of Magnesia) 30 ml PO BID PRN PRN Reason: Constipation Magnesium Oxide (Magnesium Oxide) 400 mg PO DAILY [facility] Morphine Sulfate (Morphine) 2 mg IVPUSH Q2H PRN PRN Reason: Breakthrough Pain Multivitamins (Thera) 1 each PO DAILY [facility] Naloxone HCl (Narcan) 0.1 mg IVPUSH Q5M PRN PRN Reason: Oversedation Ondansetron HCl (Zofran) 4 mg IVPUSH Q6H PRN PRN Reason: Nausea/Vomiting Last Admin: 08/24/18 04:44 Dose: 4 mg Oxycodone HCl (Oxycodone) 5 mg PO Q6H PRN PRN Reason: Pain Oxycodone/Acetaminophen (Percocet 325-5 Mg) 1 - 2 tab PO Q4H PRN PRN Reason: Pain Last Admin: 08/24/18 07:23 Dose: 2 tab Darifenacin Er 7.5 (Mg) 0 each PO DAILY [facility] Dulaglutide [ (Trulicity] 0.5 Ml) 0 each SUBCUT SA [facility] Insulin Degludec [ (Tresiba] 56 Units) 0 each SUBCUT BEDTIME [facility] Last Admin: 08/23/18 20:45 Dose: 56 each Senna (Senna) 8.6 mg PO BID PRN PRN Reason: Constipation Discontinued Medications Acetaminophen (Tylenol) 975 mg PO ONETIME ONE Stop: 08/23/18 05:46 Last Admin: 08/23/18 06:17 Dose: 975 mg Bupivacaine HCl (Marcaine 0.25%) Confirm Administered Dose 30 ml .ROUTE .STK- MED ONE Stop: 08/23/18 06:48 Last Admin: 08/23/18 08:49 Dose: 30 ml Cefazolin Sodium (Ancef) Confirm Administered Dose 2 gm .ROUTE .STK-MED ONE Stop: 08/23/18 06:47 Last Admin: 08/23/18 08:46 Dose: 2 gm Cefazolin Sodium (Ancef) Confirm Administered Dose 2 gm .ROUTE .STK-MED ONE Stop: 08/23/18 07:20 Morphine Sulfate 8 mg/Epinephrine HCl 0.3 mg/Cefuroxime Sodium 750 mg/Ketorolac Tromethamine 30 mg/Sodium Chloride 27.9 ml 0 mg .XX ONETIME ONE Stop: 08/23/18 07:36 Last Admin: 08/23/18 08:49 Dose: 788.3 mg Diphenhydramine HCl (Benadryl) 25 mg IVPUSH Q6H PRN PRN Reason: itching Stop: 08/23/18 18:00 Epinephrine HCl (Adrenalin) Confirm Administered Dose 1 mg .ROUTE .STK-MED ONE Stop: 08/23/18 08:17 Fentanyl (Sublimaze) Confirm Administered Dose 100 mcg .ROUTE .STK-MED ONE Stop: 08/23/18 07:18 Fentanyl (Sublimaze) Confirm Administered Dose 250 mcg .ROUTE .STK-MED ONE Stop: 08/23/18 07:29 Fentanyl (Sublimaze) 50 mcg IVPUSH Q5M PRN PRN Reason: pain Stop: 08/23/18 18:00 Last Admin: 08/23/18 09:50 Dose: 50 mcg Glycopyrrolate (Robinul) Confirm Administered Dose 0.4 mg .ROUTE .STK-MED ONE Stop: 08/23/18 13:45 Hydromorphone HCl (Dilaudid) Confirm Administered Dose 0.5 mg .ROUTE .STK-MED ONE Stop: 08/23/18 07:29 Hydromorphone HCl (Dilaudid) 0.5 mg IVPUSH Q15M PRN PRN Reason: Pain (severe 7-10) Stop: 08/23/18 18:00 Last Admin: 08/23/18 10:34 Dose: 0.5 mg Hydromorphone HCl (Dilaudid) Confirm Administered Dose 0.5 mg .ROUTE .STK-MED ONE Stop: 08/23/18 08:20 Lactated Ringer's (Ringers, Lactated) 1,000 mls @ 125 mls/hr IV ASDIRECTED [facility] Stop: 08/23/18 23:00 Last Admin: 08/23/18 06:31 Dose: 125 mls/hr Cefazolin Sodium/Dextrose 2 gm (/ Premix) 50 mls @ 100 mls/hr IV Q8H [facility] Stop: 08/24/18 07:29 Last Admin: 08/24/18 06:33 Dose: 100 mls/hr Lidocaine HCl (Xylocaine-Mpf 1%) Confirm Administered Dose 2 mls @ as directed .ROUTE .STK-MED ONE Stop: 08/23/18 07:18 Lidocaine HCl (Xylocaine-Mpf 1%) Confirm Administered Dose 4 mls @ as directed .ROUTE .STK-MED ONE Stop: 08/23/18 09:18 Lactated Ringer's (Ringers, Lactated) Confirm Administered Dose 1,000 mls @ as directed .ROUTE .STK-MED ONE Stop: 08/23/18 09:31 Insulin Human Lispro (Humalog) 15 unit SUBCUT TIDAC [facility] Iodine (Iodine 2% Mild Tincture) Confirm Administered Dose 30 ml .ROUTE .STK- MED ONE Stop: 08/23/18 06:48 Last Admin: 08/23/18 08:43 Dose: 18 ml Lidocaine/Sodium Bicarbonate (Buffered Lidocaine 1% In Ns 8.4%) 0.25 ml IDERM ONETIME PRN PRN Reason: Prior to IV Start Stop: 08/23/18 18:00 Last Admin: 08/23/18 06:30 Dose: 0.25 ml Midazolam HCl (Versed 1 Mg/Ml) Confirm Administered Dose 2 mg .ROUTE .STK-MED ONE Stop: 08/23/18 07:18 Neostigmine Methylsulfate (Neostigmine) Confirm Administered Dose 5 mg .ROUTE .STK-MED ONE Stop: 08/23/18 13:45 Oxycodone HCl (Oxycontin) 10 mg PO ONETIME ONE Stop: 08/23/18 05:46 Last Admin: 08/23/18 06:17 Dose: 10 mg Phenylephrine HCl (Phenylephrine In Ns 100 Mcg/Ml) Confirm Administered Dose 1 mg .ROUTE .STK-MED ONE Stop: 08/23/18 08:30 Phenylephrine HCl (Phenylephrine In Ns 100 Mcg/Ml) Confirm Administered Dose 1 mg .ROUTE .STK-MED ONE Stop: 08/23/18 09:00 Pregabalin (Lyrica) 50 mg PO ONETIME ONE Stop: 08/23/18 05:46 Last Admin: 08/23/18 06:17 Dose: 50 mg Propofol (Diprivan 20 Ml) Confirm Administered Dose 600 mg .ROUTE .STK-MED ONE Stop: 08/23/18 07:18 Ropivacaine (Naropin 0.5%) Confirm Administered Dose 30 ml .ROUTE .STK-MED ONE Stop: 08/23/18 08:17 Sodium Chloride (Saline Flush) 10 ml FLUSH ASDIRECTED PRN PRN Reason: Keep Vein Open Stop: 08/23/18 18:00 Tranexamic Acid (Cyklokapron) Confirm Administered Dose 1,000 mg .ROUTE .STK- MED ONE Stop: 08/23/18 06:47 Last Admin: 08/23/18 09:00 Dose: 1,000 mg Vancomycin HCl (Vancomycin) Confirm Administered Dose 1 gm .ROUTE .STK-MED ONE Stop: 08/23/18 06:47 Last Admin: 08/23/18 08:53 Dose: 1 gm - Exam Wound/Incisions: Dressing Dry and Intact General: Alert, Cooperative, No Acute Distress Lungs: Normal Respiratory Effort Extremities: Other (NVS intact for LLE. Nima's negative.) - Problem List Review Problem List Initiated/Reviewed/Updated: Yes - My Orders Last 24 Hours: Active Orders 24 hr Category Date Time Status Accu Check [Blood Glucose Check, Bedside] [] Care 08/23/18 13:24 Active QIDACANDBED CPAP Noctural Home [RT BiPAP/CPAP] [RC] ASDIRECTED Care 08/23/18 13:24 Active Pulse Oximetry [RC] ASDIRECTED Care 08/23/18 08:15 Active Ready for Discharge [] PER UNIT ROUTINE Care 08/24/18 08:03 Ordered [employer] Diet [DIET] Diet 08/23/18 Lunch Active Acetaminophen/oxyCODONE [Percocet 325-5 MG] Med 08/23/18 09:30 Active 1 - 2 tab PO Q4H PRN Aspirin [Ecotrin] Med 08/24/18 09:00 Active 325 mg PO BID Bisacodyl [Dulcolax] Med 08/23/18 09:30 Active 5 mg PO DAILY PRN Calcium Carbonate/Vitamin D3 [Calcium Carbonate/Vitamin Med 08/24/18 09:00 Active D 600 MG-200 Unit] 1 tab PO DAILY Cholecalciferol (Vitamin D3) [Vitamin D3] Med 08/24/18 09:00 Active 5,000 unit PO DAILY Cyanocobalamin (Vitamin B12) [Vitamin B12] Med 08/24/18 09:00 Active 500 mcg PO DAILY Cyclobenzaprine [Flexeril] Med 08/23/18 09:30 Active 10 mg PO TID PRN DULoxetine [Cymbalta] Med 08/24/18 09:00 Active 60 mg PO DAILY Docusate Sodium [Colace] Med 08/23/18 21:00 Active 100 mg PO BID Famotidine [Pepcid] Med 08/23/18 21:00 Active 20 mg PO Q12H Fluconazole [Diflucan] Med 08/24/18 09:00 Active 100 mg PO DAILY Insulin Lispro [HumaLOG] Med 08/23/18 15:00 Active 7 unit SUBCUT TID Insulin Lispro [HumaLOG] Med 08/23/18 17:00 Active See Protocol SUBCUT QIDACANDBED Ketorolac [Toradol] Med 08/23/18 09:30 Active 15 mg IVPUSH Q6H PRN Levothyroxine Med 08/24/18 06:00 Active 25 mcg PO ACBREAKFAST Magnesium Hydroxide [Milk of Magnesia] Med 08/23/18 09:30 Active 30 ml PO BID PRN Magnesium Oxide Med 08/24/18 09:00 Active 400 mg PO DAILY Morphine Med 08/23/18 09:30 Active 2 mg IVPUSH Q2H PRN Multivitamins,Therapeutic [Thera] Med 08/24/18 09:00 Active 1 each PO DAILY Naloxone [Narcan] Med 08/23/18 09:30 Active 0.1 mg IVPUSH Q5M PRN Ondansetron [Zofran] Med 08/23/18 09:30 Active 4 mg IVPUSH Q6H PRN Patient's Own Medication [Ptom] Med 08/24/18 09:00 Active 0 each PO DAILY Patient's Own Medication [Ptom] Med 08/23/18 21:00 Active 0 each SUBCUT BEDTIME Patient's Own Medication [Ptom] Med 08/28/18 08:00 Active 0 each SUBCUT SA Sennosides [Senna] Med 08/23/18 09:30 Active 8.6 mg PO BID PRN oxyCODONE Med 08/24/18 07:57 Ordered 5 mg PO Q6H PRN Medication Orders Aspirin (Ecotrin) 325 mg PO BID [facility] Bisacodyl (Dulcolax) 5 mg PO DAILY PRN PRN Reason: Constipation Calcium Carbonate (Calcium Carbonate/Vitamin D 600 Mg-200 Unit) 1 tab PO DAILY [facility] Cholecalciferol (Vitamin D3) 5,000 unit PO DAILY [facility] Cyanocobalamin (Vitamin B12) 500 mcg PO DAILY [facility] Cyclobenzaprine HCl (Flexeril) 10 mg PO TID PRN PRN Reason: Spasms Last Admin: 08/23/18 22:14 Dose: 10 mg Docusate Sodium (Colace) 100 mg PO BID [facility] Last Admin: 08/23/18 20:29 Dose: 100 mg Duloxetine HCl (Cymbalta) 60 mg PO DAILY [facility] Famotidine (Pepcid) 20 mg PO Q12H [facility] Last Admin: 08/23/18 20:29 Dose: 20 mg Fluconazole (Diflucan) 100 mg PO DAILY [facility] Insulin Human Lispro (Humalog) 0 unit SUBCUT QIDACANDBED [facility]; Protocol Last Admin: 08/24/18 07:25 Dose: 1 unit Admin: 08/24/18 00:56 Dose: Not Given Admin: 08/23/18 18:25 Dose: Not Given Insulin Human Lispro (Humalog) 7 unit SUBCUT TID [facility] Last Admin: 08/23/18 20:44 Dose: 7 units Admin: 08/23/18 14:47 Dose: 7 units Ketorolac Tromethamine (Toradol) 15 mg IVPUSH Q6H PRN PRN Reason: Pain Last Admin: 08/24/18 04:10 Dose: 15 mg Levothyroxine Sodium (Levothyroxine) 25 mcg PO ACBREAKFAST [facility] Last Admin: 08/24/18 06:33 Dose: 25 mcg Magnesium Hydroxide (Milk Of Magnesia) 30 ml PO BID PRN PRN Reason: Constipation Magnesium Oxide (Magnesium Oxide) 400 mg PO DAILY [facility] Morphine Sulfate (Morphine) 2 mg IVPUSH Q2H PRN PRN Reason: Breakthrough Pain Multivitamins (Thera) 1 each PO DAILY [facility] Naloxone HCl (Narcan) 0.1 mg IVPUSH Q5M PRN PRN Reason: Oversedation Ondansetron HCl (Zofran) 4 mg IVPUSH Q6H PRN PRN Reason: Nausea/Vomiting Last Admin: 08/24/18 04:44 Dose: 4 mg Admin: 08/23/18 10:53 Dose: 4 mg Oxycodone HCl (Oxycodone) 5 mg PO Q6H PRN PRN Reason: Pain Oxycodone/Acetaminophen (Percocet 325-5 Mg) 1 - 2 tab PO Q4H PRN PRN Reason: Pain Last Admin: 08/24/18 07:23 Dose: 2 tab Admin: 08/24/18 03:05 Dose: 2 tab Admin: 08/23/18 20:29 Dose: 2 tab Admin: 08/23/18 16:28 Dose: 2 tab Admin: 08/23/18 11:34 Dose: 2 tab Darifenacin Er 7.5 (Mg) 0 each PO DAILY [facility] Dulaglutide [ (Trulicity] 0.5 Ml) 0 each SUBCUT SA [facility] Insulin Degludec [ (Tresiba] 56 Units) 0 each SUBCUT BEDTIME [facility] Last Admin: 08/23/18 20:45 Dose: 56 each Senna (Senna) 8.6 mg PO BID PRN PRN Reason: Constipation - Assessment Assessment (Free Text/Narrative):: POD#1 - left TKA - Plan Plan (Free Text/Narrative):: 1. Will add extra 5mg PO oxycodone q 6 hours PRN severe pain. 2. 325mg ASA PO BID, frequent mobility, TEDs. 3. Close monitoring of blood sugars. 4. Outpatient therapy. The pt's case was discussed with Dr. Solis.
[2018-08-24] MEDS ORDERED: Calcium Carbonate/Vitamin D3 600 MG-200 Units Tab PO SCH (09:00)
[2018-08-24] MEDS ORDERED: Aspirin 325 MG Tab.EC PO SCH (09:00)
[2018-08-24] MEDS ORDERED: Cyanocobalamin (Vitamin B12) 1,000 MCG Tab PO SCH (09:00)
[2018-08-24] MEDS ORDERED: Magnesium Oxide 400 MG Tab PO SCH (09:00)
[2018-08-24] MEDS ORDERED: Fluconazole 100 MG Tab PO SCH (09:00)
[2018-08-24] MEDS ORDERED: DULoxetine 30 MG Cap PO SCH (09:00)
[2018-08-24] MEDS ORDERED: Cholecalciferol (Vitamin D3) 5,000 UNIT Tab PO SCH (09:00)
[2018-08-24] MEDS ORDERED: DARIFENACIN 7.5 MG PO SCH (09:00)
[2018-08-24] MEDS ORDERED: Multivitamins,Therapeutic Tab PO SCH (09:00)
[2018-08-24] MEDS: Docusate Sodium 100 MG Cap PO SCH (09:07)
[2018-08-24] MEDS: Famotidine 20 MG Tab PO SCH (09:08)
[2018-08-24] MEDS ORDERED: Insulin Lispro 100 Units/ML 3 ML Vial SUBCUT SCH (11:00)
[2018-08-24 11:56] VITALS: BP 122/56
[2018-08-24] MEDS: Cyclobenzaprine 10 MG Tab PO PRN (12:07)
--- NOTE | 2018-08-25 08:08 | PCM.DCSUM1 ---
Discharge Summary - Hospital Course Brief History: Shanna is a 63 yo female who underwent left TKA with Dr. Solis on 08-23-2018. The procedure was completed under general anesthesia with post-op block placement. The pt tolerated the procedure well and was admitted to the Medical-Surgical Unit. Medical management was provided by the Hospitalist service. The pt's Hospital course was uneventful. Blood sugars were closely monitoring by Hospitalist service. The pt's Hgb on POD#1 was 10.7. On POD#1, 325mg ASA BID was initiated for VTE prophylaxis. SCDs and TEDs were also ordered. A Mepilex dressing was placed at the incision site at the time of surgery and remained clean and dry. The pt participated in P.T. and O.T. and progressed well. On POD#1, the pt was deemed appropriate to discharge to home with her . Diagnosis: Stroke: No - Discharge Data Discharge Date: 08/24/18 Discharge Disposition: Home, Self-Care 01 Condition: Good - Patient Summary/Data Operative Procedure(s) Performed: left total knee arthroplasty Consults: Consultations 08/23/18 06:23 OT Evaluation and Treatment [CONS] Routine PT Evaluation and Treatment [CONS] Routine 08/23/18 06:24 Consult to Physician [CONS] Routine - Patient Instructions Diet: Usual Diet as Tolerated, Diabetic Diet Diet, Other: Closely monitoring blood sugars. Activity: Apply Ice, As Tolerated, Elevate Extremity, Full Weight Bearing Driving: Do Not Drive Showering/Bathing: May Shower Wound/Incision Care: Keep Operative Site/Wound Site Clean and Dry, Do NOT Change Dressing Notify Provider of: Fever, Increased Pain, Swelling and Redness, Drainage, Nausea and/or Vomiting Other/Special Instructions: Please get up and moving around EVERY HOUR while awake. This helps to prevent blood clots. Please use your walker and have help with mobility as needed. Take a short walk in your home every hour while awake. Please take 325mg Aspirin TWICE daily. The aspirin is being used for blood clot prevention and not for pain management so please do not miss a dose of the medication. You could use a medication like Zantac or Pepcid and a medication like Prilosec or Nexium to protect your stomach while you are using the aspirin. At home, please complete the exercises that you learned during the Hospital stay. Schedule for physical therapy. Use the pain medication as needed. The medication may cause drowsiness and constipation. Contact your primary care provider for instructions if you are constipated. You may use a stool softener like docusate sodium or Colace 100mg twice daily and/or a laxative like Miralax daily for constipation. Increase your water and fiber intake while you are using the pain medication. Discontinue use of the pain medication as soon as able. Please do not use other medications that may cause drowsiness (other pain medications, anxiety pills, cold medications, sleeping pills, etc) while using the prescription pain medication. Do not use alcohol while using the pain medication. You may use acetaminophen or Tylenol for pain management, however, please ensure you are not using over 4000 mg or 4 grams of acetaminophen per day from all sources. Your pain medication has 325mg of acetaminophen per tablet. At this time, please do not use ibuprofen (Motrin, Advil) or naproxen (Aleve) for pain management as you are using the aspirin. When the aspirin course is completed in 4 to 6 weeks, you could use ibuprofen or naproxen for pain management (if this is allowed by your primary care provider). Wear the FAHAD hose during the day and you may remove these at night. Elevate the limb to decrease swelling. Place ice to the area often. Place a towel between your skin and the blue pad. Use the incentive spirometer often. Take deep breaths throughout the day. Please keep the dressing in place until follow-up. Notify the Clinic if the dressing becomes saturated. Increase your protein intake while you are healing. Please closely monitor your blood sugars and notify your primary care provider or chemical educator with abnormal values. Elevated blood sugars increases the risk of infection. Call the Clinic with questions or concerns - [phone]. Continue home oxygen as directed. Follow-up with PCP with 3-5 days of discharge regarding oxygen need. - Discharge Plan *PRESCRIPTION DRUG MONITORING PROGRAM REVIEWED*: No *COPY OF PRESCRIPTION DRUG MONITORING REPORT IN PATIENT BHAVNA: No Prescriptions/Med Rec: Acetaminophen/oxyCODONE [Percocet 325-5 MG] 1 - 2 tab PO Q4H PRN #60 tablet PRN Reason: Pain Aspirin [Ecotrin EC] 325 mg PO BID #84 tab.ec Cyclobenzaprine [Flexeril] 10 mg PO Q12H PRN #30 tablet PRN Reason: Spasms oxyCODONE 5 mg PO Q6H PRN #20 tablet PRN Reason: Pain Home Medications: Home Meds DULoxetine HCl [Cymbalta] 60 mg PO DAILY 01/29/15 [History] Hydrochlorothiazide 25 mg PO DAILY 01/29/15 [History] Dulaglutide [Trulicity] 0.5 ml SQ SA 08/28/17 [History] Insulin Lispro [Humalog Kwikpen U-100] 15 units SQ TIDAC 08/28/17 [History] Cholecalciferol (Vitamin D3) [Vitamin D3] 5,000 units PO DAILY 08/31/17 [History ] Cyanocobalamin (Vitamin B12) [Vitamin B12] 500 mcg PO DAILY 08/31/17 [History] Lactobacillus Rhamnosus GG [Culturelle] 1 cap PO DAILY 08/31/17 [History] Levothyroxine 25 mcg PO ACBREAKFAST 09/01/17 [History] Ca Carbonate/Vitamin D3/Vit K [Calcium + D Soft Chewable Tab] 1 tab PO DAILY 07/09 [History] Insulin Degludec [Tresiba] 56 units SQ BEDTIME 07/24/18 [History] Lisinopril 10 mg PO DAILY 07/24/18 [History] Magnesium Oxide 250 mg PO DAILY 07/24/18 [History] Multivitamin [Daily Yamini] 1 tab PO DAILY 07/24/18 [History] Nitrofurantoin Monohyd/M-Cryst [Macrobid 100 mg Capsule] 100 mg PO MO 07/24/18 [ History] Darifenacin Hydrobromide [Darifenacin ER] 7.5 mg PO DAILY 08/20/18 [History] Fluconazole [Diflucan] 100 mg PO DAILY 08/20/18 [History] atorvaSTATin Calcium [Lipitor] 20 mg PO BEDTIME 08/20/18 [History] Insulin Lispro [Insulin Lispro Kwikpen U-100] 1 - 10 unit SQ ACBREAKFASTANDBED 08/23/18 [History] Acetaminophen/oxyCODONE [Percocet 325-5 MG] 1 - 2 tab PO Q4H PRN #60 tablet 07/09 [Rx] Aspirin [Ecotrin EC] 325 mg PO BID #84 tab.ec 08/24/18 [Rx] Bisacodyl [Dulcolax] 5 mg PO DAILY PRN tablet 08/24/18 [Rx] Cyclobenzaprine [Flexeril] 10 mg PO Q12H PRN #30 tablet 08/24/18 [Rx] Docusate Sodium [Colace] 100 mg PO BID cap 08/24/18 [Rx] Famotidine [Pepcid] 20 mg PO Q12H tablet 08/24/18 [Rx] Sennosides [Senna] 8.6 mg PO BID PRN tablet 08/24/18 [Rx] oxyCODONE 5 mg PO Q6H PRN #20 tablet 08/24/18 [Rx] Oxygen Therapy Mode: Nasal Cannula Oxygen Flow Rate (L/min): 1 (1L continuous 2L with activity) Maintain SpO2% greater than: 90 Patient Handouts: Total Knee Replacement, Care After, [id number], Total Knee Replacement, [id number], Knee Rehabilitation Guidelines Following Surgery Referrals: Alisha Menon PA-C [Physician Video Production Coordinator] - - Discharge Summary/Plan Comment DC Time >30 min.: No - Patient Data Vitals - Most Recent: Last Vital Signs Temp 98.8 F 08/24/18 11:53 Pulse 99 08/24/18 12:19 Resp 16 08/24/18 11:53 BP 122/56 L 08/24/18 11:53 Pulse Ox 92 L 08/24/18 13:50 Weight - Most Recent: 255 lb 11.2 oz I&O - Last 24 hours: Intake & Output 08/24/18 08/25/18 08/25/18 22:59 06:59 14:59 Intake Total 150 Balance 150 Lab Results - Last 24 hrs: Laboratory Results - last 24 hr 08/23/18 08/24/18 Range/Units 17:40 11:29 POC Glucose 127 H 142 H (80-115) mg/dL Med Orders - Current: Current Medications Discontinued Medications Acetaminophen (Tylenol) 975 mg PO ONETIME ONE Stop: 08/23/18 05:46 Last Admin: 08/23/18 06:17 Dose: 975 mg Aspirin (Ecotrin) 325 mg PO BID [facility]ST[facility] Last Admin: 08/24/18 09:07 Dose: 325 mg Bisacodyl (Dulcolax) 5 mg PO DAILY PRN PRN Reason: Constipation Bupivacaine HCl (Marcaine 0.25%) Confirm Administered Dose 30 ml .ROUTE .STK- MED ONE Stop: 08/23/18 06:48 Last Admin: 08/23/18 08:49 Dose: 30 ml Calcium Carbonate (Calcium Carbonate/Vitamin D 600 Mg-200 Unit) 1 tab PO DAILY [facility] Last Admin: 08/24/18 09:08 Dose: 1 tab Cefazolin Sodium (Ancef) Confirm Administered Dose 2 gm .ROUTE .STK-MED ONE Stop: 08/23/18 06:47 Last Admin: 08/23/18 08:46 Dose: 2 gm Cefazolin Sodium (Ancef) Confirm Administered Dose 2 gm .ROUTE .STK-MED ONE Stop: 08/23/18 07:20 Cholecalciferol (Vitamin D3) 5,000 unit PO DAILY [facility] Last Admin: 08/24/18 09:08 Dose: 5,000 unit Morphine Sulfate 8 mg/Epinephrine HCl 0.3 mg/Cefuroxime Sodium 750 mg/Ketorolac Tromethamine 30 mg/Sodium Chloride 27.9 ml 0 mg .XX ONETIME ONE Stop: 08/23/18 07:36 Last Admin: 08/23/18 08:49 Dose: 788.3 mg Cyanocobalamin (Vitamin B12) 500 mcg PO DAILY [facility] Last Admin: 08/24/18 09:06 Dose: 500 mcg Cyclobenzaprine HCl (Flexeril) 10 mg PO TID PRN PRN Reason: Spasms Last Admin: 08/24/18 12:07 Dose: 10 mg Diphenhydramine HCl (Benadryl) 25 mg IVPUSH Q6H PRN PRN Reason: itching Stop: 08/23/18 18:00 Docusate Sodium (Colace) 100 mg PO BID [facility] Last Admin: 08/24/18 09:07 Dose: 100 mg Duloxetine HCl (Cymbalta) 60 mg PO DAILY [facility] Last Admin: 08/24/18 09:07 Dose: 60 mg Epinephrine HCl (Adrenalin) Confirm Administered Dose 1 mg .ROUTE .STK-MED ONE Stop: 08/23/18 08:17 Famotidine (Pepcid) 20 mg PO Q12H [facility] Last Admin: 08/24/18 09:08 Dose: 20 mg Fentanyl (Sublimaze) Confirm Administered Dose 100 mcg .ROUTE .STK-MED ONE Stop: 08/23/18 07:18 Fentanyl (Sublimaze) Confirm Administered Dose 250 mcg .ROUTE .STK-MED ONE Stop: 08/23/18 07:29 Fentanyl (Sublimaze) 50 mcg IVPUSH Q5M PRN PRN Reason: pain Stop: 08/23/18 18:00 Last Admin: 08/23/18 09:50 Dose: 50 mcg Fluconazole (Diflucan) 100 mg PO DAILY [facility] Last Admin: 08/24/18 09:08 Dose: 100 mg Glycopyrrolate (Robinul) Confirm Administered Dose 0.4 mg .ROUTE .STK-MED ONE Stop: 08/23/18 13:45 Hydromorphone HCl (Dilaudid) Confirm Administered Dose 0.5 mg .ROUTE .STK-MED ONE Stop: 08/23/18 07:29 Hydromorphone HCl (Dilaudid) 0.5 mg IVPUSH Q15M PRN PRN Reason: Pain (severe 7-10) Stop: 08/23/18 18:00 Last Admin: 08/23/18 10:34 Dose: 0.5 mg Hydromorphone HCl (Dilaudid) Confirm Administered Dose 0.5 mg .ROUTE .STK-MED ONE Stop: 08/23/18 08:20 Lactated Ringer's (Ringers, Lactated) 1,000 mls @ 125 mls/hr IV ASDIRECTED [facility] Stop: 08/23/18 23:00 Last Admin: 08/23/18 06:31 Dose: 125 mls/hr Cefazolin Sodium/Dextrose 2 gm (/ Premix) 50 mls @ 100 mls/hr IV Q8H [facility] Stop: 08/24/18 07:29 Last Admin: 08/24/18 06:33 Dose: 100 mls/hr Lidocaine HCl (Xylocaine-Mpf 1%) Confirm Administered Dose 2 mls @ as directed .ROUTE .STK-MED ONE Stop: 08/23/18 07:18 Lidocaine HCl (Xylocaine-Mpf 1%) Confirm Administered Dose 4 mls @ as directed .ROUTE .STK-MED ONE Stop: 08/23/18 09:18 Lactated Ringer's (Ringers, Lactated) Confirm Administered Dose 1,000 mls @ as directed .ROUTE .STK-MED ONE Stop: 08/23/18 09:31 Insulin Human Lispro (Humalog) 15 unit SUBCUT TIDAC [facility] Insulin Human Lispro (Humalog) 0 unit SUBCUT QIDACANDBED [facility]; Protocol Last Admin: 08/24/18 12:11 Dose: Not Given Insulin Human Lispro (Humalog) 7 unit SUBCUT TID [facility] Last Admin: 08/24/18 09:09 Dose: 7 units Insulin Human Lispro (Humalog) 7 unit SUBCUT TIDMEALS [facility] Last Admin: 08/24/18 12:09 Dose: 7 units Iodine (Iodine 2% Mild Tincture) Confirm Administered Dose 30 ml .ROUTE .STK- MED ONE Stop: 08/23/18 06:48 Last Admin: 08/23/18 08:43 Dose: 18 ml Ketorolac Tromethamine (Toradol) 15 mg IVPUSH Q6H PRN PRN Reason: Pain Last Admin: 08/24/18 12:04 Dose: 15 mg Levothyroxine Sodium (Levothyroxine) 25 mcg PO ACBREAKFAST [facility] Last Admin: 08/24/18 06:33 Dose: 25 mcg Lidocaine/Sodium Bicarbonate (Buffered Lidocaine 1% In Ns 8.4%) 0.25 ml IDERM ONETIME PRN PRN Reason: Prior to IV Start Stop: 08/23/18 18:00 Last Admin: 08/23/18 06:30 Dose: 0.25 ml Magnesium Hydroxide (Milk Of Magnesia) 30 ml PO BID PRN PRN Reason: Constipation Magnesium Oxide (Magnesium Oxide) 400 mg PO DAILY [facility] Last Admin: 08/24/18 09:07 Dose: 400 mg Midazolam HCl (Versed 1 Mg/Ml) Confirm Administered Dose 2 mg .ROUTE .STK-MED ONE Stop: 08/23/18 07:18 Morphine Sulfate (Morphine) 2 mg IVPUSH Q2H PRN PRN Reason: Breakthrough Pain Multivitamins (Thera) 1 each PO DAILY [facility] Last Admin: 08/24/18 09:07 Dose: 1 each Naloxone HCl (Narcan) 0.1 mg IVPUSH Q5M PRN PRN Reason: Oversedation Neostigmine Methylsulfate (Neostigmine) Confirm Administered Dose 5 mg .ROUTE .STK-MED ONE Stop: 08/23/18 13:45 Ondansetron HCl (Zofran) 4 mg IVPUSH Q6H PRN PRN Reason: Nausea/Vomiting Last Admin: 08/24/18 04:44 Dose: 4 mg Oxycodone HCl (Oxycontin) 10 mg PO ONETIME ONE Stop: 08/23/18 05:46 Last Admin: 08/23/18 06:17 Dose: 10 mg Oxycodone HCl (Oxycodone) 5 mg PO Q6H PRN PRN Reason: Pain Last Admin: 08/24/18 09:23 Dose: 5 mg Oxycodone/Acetaminophen (Percocet 325-5 Mg) 1 - 2 tab PO Q4H PRN PRN Reason: Pain Last Admin: 08/24/18 07:23 Dose: 2 tab Darifenacin Er 7.5 (Mg) 0 each PO DAILY [facility] Last Admin: 08/24/18 09:23 Dose: Not Given Dulaglutide [ (Trulicity] 0.5 Ml) 0 each SUBCUT SA [facility] Insulin Degludec [ (Tresiba] 56 Units) 0 each SUBCUT BEDTIME [facility] Last Admin: 08/23/18 20:45 Dose: 56 each Phenylephrine HCl (Phenylephrine In Ns 100 Mcg/Ml) Confirm Administered Dose 1 mg .ROUTE .STK-MED ONE Stop: 08/23/18 08:30 Phenylephrine HCl (Phenylephrine In Ns 100 Mcg/Ml) Confirm Administered Dose 1 mg .ROUTE .STK-MED ONE Stop: 08/23/18 09:00 Pregabalin (Lyrica) 50 mg PO ONETIME ONE Stop: 08/23/18 05:46 Last Admin: 08/23/18 06:17 Dose: 50 mg Propofol (Diprivan 20 Ml) Confirm Administered Dose 600 mg .ROUTE .STK-MED ONE Stop: 08/23/18 07:18 Ropivacaine (Naropin 0.5%) Confirm Administered Dose 30 ml .ROUTE .STK-MED ONE Stop: 08/23/18 08:17 Senna (Senna) 8.6 mg PO BID PRN PRN Reason: Constipation Sodium Chloride (Saline Flush) 10 ml FLUSH ASDIRECTED PRN PRN Reason: Keep Vein Open Stop: 08/23/18 18:00 Tranexamic Acid (Cyklokapron) Confirm Administered Dose 1,000 mg .ROUTE .STK- MED ONE Stop: 08/23/18 06:47 Last Admin: 08/23/18 09:00 Dose: 1,000 mg Vancomycin HCl (Vancomycin) Confirm Administered Dose 1 gm .ROUTE .[facility]-MED ONE Stop: 08/23/18 06:47 Last Admin: 08/23/18 08:53 Dose: 1 gm
--- NOTE | 2018-08-27 11:31 | OR ---
DATE OF OPERATION: 08/23/2018 SURGEON: Varinder Solis MD OPERATION PERFORMED: Left total knee arthroplasty. PREOPERATIVE DIAGNOSIS: Left knee osteoarthrosis. POSTOPERATIVE DIAGNOSIS: Left knee osteoarthrosis. ANESTHESIA: General endotracheal intubation with local anesthesia. ANESTHESIA PROVIDER: Neva Peterson. ASSISTANTS: Alisha Menon PA-C; and Gemma Sidhu LPN. ESTIMATED BLOOD LOSS: 50 mL. COMPLICATIONS: None. CONDITION: Stable. IMPLANTS: 1. Rockmart size 3 press-fit CR femur. 2. Carla size 3 press-fit universal tibial base plate. 3. Rockmart size 3, 9 mm CS polyethylene insert. 4. Rockmart size 32 x 10 mm cemented asymmetric patella. DESCRIPTION OF PROCEDURE: The patient was identified in the preop holding area. Proper site was marked and identified by the surgeon. The patient was taken back to the operating theater. After adequate anesthesia, the patient's left lower extremity had a nonsterile tourniquet applied and it was sterilely prepped and draped in the usual sterile fashion. OR time-out was performed. The patient received 2 g IV Ancef. At this time, the left lower extremity was exsanguinated. Tourniquet was insufflated to 300 mmHg. Standard medial parapatellar incision was made. Medial parapatellar arthrotomy was created. Deep fibers of the MCL were raised and anterior fat pad was resected. At this time, attention was turned to the patella. Patella measured 20, it was resected to a 13 for 32 x 10 mm patella. Drill holes were then drilled and found to be in adequate position. The drill was then drilled in the distal femur and the intramedullary distal femoral cutting guide was then placed. An 8 mm was resected off the distal femur and was found to be an adequate resection. Sizing guide was placed. It was found to be a size 3 press-fit CR femur that was shown on the implant record at the beginning of this dictation. The drill holes were drilled for the epicondylar axis using Whitesides line and epicondyles as reference. At this time, the 4-in - 1 cutting block was placed. An anterior posterior and anterior and posterior chamfer cuts were then completed. Attention was turned to the tibia. The posterior medial lateral retractors were placed. The extramedullary tibial guide was placed. It was placed in the old footprint of the ACL. It was aligned with the center of the ankle and 0 degrees of slope, 9 mm was then resected off the unaffected side. There was found to be an acceptable reduction. At this time, posterior osteophytes were removed along with medial and lateral meniscus. A trial implant was placed with a correct sized tibia that was mentioned at the beginning of the dictation. A Carla size 3, 9 mm CS polyethylene insert was then placed. The patient's knee was brought through range of motion. The patella was tracking centrally and was stable to varus and valgus stress. Alignment was found to be roughly at 0 degrees. The tibia was stamped and drilled in proper rotation. The universal tibial base plate was impacted in place. Next, the Rockmart size 3 press-fit CR femur impacted into place and the Carla size 3, 9 mm CS polyethylene insert was placed. The patient's knee was brought into full extension. The patella was then cemented in place at this time due to a smaller patella. Tourniquet was deflated. One liter dilute Betadine solution was irrigated through the knee along with 3 L of pulse lavage irrigation with Ancef. Periarticular injection was then completed. The patient's knee was brought through a range of motion. Knee was found to be stable to varus valgus stress, the patella was tracking centrally with full range of motion. At this time, a #2 barbed suture was used for closure of the medial parapatellar arthrotomy. Topical tranexamic acid was placed. 2-0 Vicryl was used subcutaneously, Prineo was used for the skin. The patient tolerated the procedure well and was sent to the PACU in stable condition. YESY /[id number] ARCHIE
[2018-08-28] MEDS ORDERED: Dulaglutide [Trulicity] 0.5 ML SUBCUT SCH (08:00)
== END 2018-08-24 15:58 | disposition home or self-care (01) | DRG 302 ==
LOC: JD.SDS 05:50 → JD.MS 06:09 → JD.SDS 06:23 → JD.MS 06:24
PROVIDERS: ADMIT Orthopaedic Surgery; ATTEND Orthopaedic Surgery
PROC: 0SRD0J9 Replacement of Left Knee Joint with Synthetic Substitute, Cemented, Open Approach (ICD-10-PCS; principal; 2018-08-23)
DX: M17.12 Unilateral primary osteoarthritis, left knee (principal); E11.65 Type 2 diabetes mellitus with hyperglycemia; G47.33 Obstructive sleep apnea (adult) (pediatric); I10 Essential (primary) hypertension; M79.7 Fibromyalgia; F32.9 Major depressive disorder, single episode, unspecified; F41.0 Panic disorder [episodic paroxysmal anxiety]; K21.9 Gastro-esophageal reflux disease without esophagitis; E03.9 Hypothyroidism, unspecified; J45.20 Mild intermittent asthma, uncomplicated; Z90.49 Acquired absence of other specified parts of digestive tract; E78.5 Hyperlipidemia, unspecified; E66.9 Obesity, unspecified; Z68.42 Body mass index [BMI] 45.0-49.9, adult; E55.9 Vitamin D deficiency, unspecified; H54.7 Unspecified visual loss; J30.9 Allergic rhinitis, unspecified; Z96.651 Presence of right artificial knee joint; F41.1 Generalized anxiety disorder; N31.8 Other neuromuscular dysfunction of bladder; K52.9 Noninfective gastroenteritis and colitis, unspecified; K44.9 Diaphragmatic hernia without obstruction or gangrene; Z86.010 Personal history of colon polyps; Z88.1 Allergy status to other antibiotic agents; Z88.2 Allergy status to sulfonamides; Z88.0 Allergy status to penicillin; Z88.8 Allergy status to other drugs, medicaments and biological substances; Z79.82 Long term (current) use of aspirin; Z79.4 Long term (current) use of insulin
CPT/HCPCS: 01402; 36415; 64450; 73560-26-LT; 73560-LT; 80053; 82962; 85027; 87641; 94761; 97110-GP; 97116-GP; 97161-GP; 97165-GO; 97535-GO; A9270-GY; C1713; C1776; J0171; J0690; J0697; J1170; J1815-GY; J1885; J2001; J2250; J2270; J2370; J2405; J2704; J2710; J2795; J3010; J3370; J3490; J7120

== ENCOUNTER 2018-08-31 17:00 | Emergency (ER) | payer BC ==
[2018-08-31 17:29] VITALS: BP 148/88
[2018-08-31] MEDS ORDERED: Sodium Chloride 0.9% 1,000 ML IV SCH (18:15)
[2018-08-31] MEDS ORDERED: Sodium Chloride 0.9% 10 ML Syringe FLUSH PRN (18:15)
[2018-08-31] MEDS ORDERED: Metoclopramide 10 MG/2 ML SDV IVPUSH ONE (18:16)
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
[2018-08-31] MEDS ORDERED: oxyCODONE 5 MG Tab PO ONE (19:02)
== END 2018-08-31 20:37 | disposition home or self-care (01) ==
LOC: JD.ED 17:00
DX: K52.9 Noninfective gastroenteritis and colitis, unspecified (principal); E11.9 Type 2 diabetes mellitus without complications; E03.9 Hypothyroidism, unspecified; I10 Essential (primary) hypertension; E66.9 Obesity, unspecified; F41.9 Anxiety disorder, unspecified; F32.9 Major depressive disorder, single episode, unspecified; Z98.890 Other specified postprocedural states; Z90.49 Acquired absence of other specified parts of digestive tract; Z90.710 Acquired absence of both cervix and uterus; Z88.0 Allergy status to penicillin; Z88.2 Allergy status to sulfonamides; Z88.8 Allergy status to other drugs, medicaments and biological substances; Z79.4 Long term (current) use of insulin; Z79.899 Other long term (current) drug therapy; Z79.82 Long term (current) use of aspirin; Z88.1 Allergy status to other antibiotic agents
CPT/HCPCS: 96361; 96374; 99283; A9270; J2765; J7040

== ENCOUNTER 2021-01-17 11:46 | Emergency (ER) | payer BC ==
[2021-01-17 12:11] VITALS: BP 142/108; PULSE 89
[2021-01-17] MEDS ORDERED: Acetaminophen/HYDROcodone 325-10 MG Tab PO ONE (12:15)
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
[2021-01-17] MEDS ORDERED: Cyclobenzaprine 10 MG Tab PO ONE (13:45)
--- NOTE | 2021-01-17 13:45 | CR ---
Right foot: 4 views of the right foot were obtained. Comparison: No prior foot study is available. Plantar spur is noted. Spur is also noted at the attachment of the Achilles tendon to the calcaneus. Soft tissue swelling is seen. Unfused os navicularis is noted. Mild bunion deformity is noted. No acute fracture, dislocation or other bony abnormality is appreciated. Impression: 1. Findings as noted above. 2. No definite acute osseous abnormality is seen. Diagnostic code #2
--- NOTE | 2021-01-17 13:46 | CR ---
Pelvis and right hip: AP view of the pelvis was obtained as well as AP and frog-leg lateral views of the right hip. Comparison: No prior pelvic or hip radiograph. Prior lumbar spine surgery is noted. Degenerative change is seen within both sacroiliac joints with joint space narrowing and sclerosis. Joint spaces within both hips are maintained. No fracture or other abnormality is appreciated. Small calcification is seen within the upper medial thigh which is most likely dystrophic. Impression: 1. Degenerative change as noted above with prior lumbar spine surgery. 2. No acute abnormality is appreciated on AP pelvis or on 2-view right hip exam. Diagnostic code #2
--- NOTE | 2021-01-17 13:57 | CR ---
Bilateral knees: AP view of both knees were obtained as well as crosstable lateral views and patellar sunrise views. Comparison: Prior knee radiographs performed after surgery dated 07/26/18 of the right knee and 08/23/18 of the left knee. 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 Bilateral patellar prostheses are noted. Components are aligned within both knees. Calcification is seen posterior to the upper fibula within the right knee compatible with slight dystrophic calcification. No fracture or other abnormality is appreciated. Impression: 1. Bilateral knee prostheses which appear normal in alignment. 2. Slight dystrophic calcification within the left knee. This is stable from prior study. 3. Nothing acute is seen on bilateral knee exam. Diagnostic code #2
--- NOTE | 2021-01-17 13:59 | CR ---
Lumbar spine: AP, lateral and coned-down lateral views centered to the lumbosacral junction were obtained. Comparison: Prior MRI lumbar spine study of 01/07/19. Trans-pedicle screws are seen at L4-5. Intervertebral disc fixation device is seen. Disc space narrowing is noted which is labeled as L5-S1 which is an interval change from prior study. Mild disc space narrowing is seen at L3-4 posteriorly which is an interval change. Diffuse disc space narrowing is noted at L2-3 with anterior osteophytes which is an interval change from prior study. Posterior disc space narrowing is noted at T12-L1 and L-2 which is also an interval change. Anterior osteophytes are seen anterior and lateral within the lower thoracic spine. Pedicles are intact. Degenerative change is noted within the sacroiliac joints. Impression: 1. Diffuse degenerative change within the discs and endplates as noted above. Findings have progressed from prior MRI lumbar spine study. 2. Stable surgery at L4-5. Diagnostic code #3
== END 2021-01-17 14:15 | disposition home or self-care (01) ==
LOC: JD.ED 11:46
DX: S76.011A Strain of muscle, fascia and tendon of right hip, initial encounter (principal); M25.561 Pain in right knee; M25.562 Pain in left knee; E78.00 Pure hypercholesterolemia, unspecified; I10 Essential (primary) hypertension; K21.9 Gastro-esophageal reflux disease without esophagitis; E11.9 Type 2 diabetes mellitus without complications; E03.9 Hypothyroidism, unspecified; E66.9 Obesity, unspecified; Z68.42 Body mass index [BMI] 45.0-49.9, adult; Z86.16 Personal history of COVID-19; Z88.1 Allergy status to other antibiotic agents; Z88.0 Allergy status to penicillin; Z88.2 Allergy status to sulfonamides; W17.89XA Other fall from one level to another, initial encounter
CPT/HCPCS: 72100; 73502; 73562; 73630; 99283; A9270

== ENCOUNTER 2021-09-27 14:16 | Emergency (ER) | payer BC ==
[2021-09-27 14:30] VITALS: BP 147/80; PULSE 81
[2021-09-27] MEDS ORDERED: Sodium Chloride 0.9% 10 ML Syringe FLUSH PRN (14:47)
[2021-09-27] MEDS ORDERED: Furosemide 40 MG/4 ML VIAL IVPUSH ONE (15:51)
== END 2021-09-27 18:05 | disposition home or self-care (01) ==
LOC: JD.ED 14:16
DX: I50.9 Heart failure, unspecified (principal); E78.00 Pure hypercholesterolemia, unspecified; E03.9 Hypothyroidism, unspecified; I10 Essential (primary) hypertension; E66.9 Obesity, unspecified; Z68.30 Body mass index [BMI] 30.0-30.9, adult; Z88.1 Allergy status to other antibiotic agents; Z88.2 Allergy status to sulfonamides; Z88.0 Allergy status to penicillin; Z79.899 Other long term (current) drug therapy; Z79.4 Long term (current) use of insulin; Z86.16 Personal history of COVID-19; Z90.49 Acquired absence of other specified parts of digestive tract; Z90.710 Acquired absence of both cervix and uterus; Z20.822 Contact with and (suspected) exposure to COVID-19
CPT/HCPCS: 36415; 71045; 80053; 81003; 83735; 83880; 84484; 85025; 85379; 86140; 87635; 93005; 96374; 99285; J1940; J3490; U0002

== ENCOUNTER 2022-08-06 11:43 | Day surgery (SDC) | payer BC ==
[~2022-08-06 11:43] MED LIST changes: -Acetaminophen 325 MG Tab PO ONE; +Lactated Ringers 1,000 ML IV SCH; +Lidocaine 1%/Sod Bicarbonate in NS 8.4% 1 ML Syringe IDERM PRN; -Pregabalin 25 MG Cap PO ONE; +Sodium Chloride 0.9% 10 ML Syringe FLUSH PRN; +Sodium Chloride 0.9% 10 ML Syringe FLUSH SCH; -oxyCODONE ER 10 MG TAB.ER PO ONE
[2022-08-06] MEDS ORDERED: Propofol 200 MG/20 ML SDV ONE (14:21)
[2022-08-06] MEDS ORDERED: fentaNYL 100 MCG/2 ML SDV ONE (14:21)
[2022-08-06 15:24] VITALS: PULSE 72
[2022-08-06 15:52] VITALS: BP 111/74
== END 2022-08-06 15:49 | disposition home or self-care (01) ==
LOC: JD.SDS 11:43
PROVIDERS: ATTEND Surgery
DX: K31.7 Polyp of stomach and duodenum (principal); K29.50 Unspecified chronic gastritis without bleeding; K29.80 Duodenitis without bleeding; K21.00 Gastro-esophageal reflux disease with esophagitis, without bleeding; I10 Essential (primary) hypertension; F41.9 Anxiety disorder, unspecified; E11.9 Type 2 diabetes mellitus without complications; E78.5 Hyperlipidemia, unspecified; G47.33 Obstructive sleep apnea (adult) (pediatric); K58.0 Irritable bowel syndrome with diarrhea; E11.40 Type 2 diabetes mellitus with diabetic neuropathy, unspecified; N39.46 Mixed incontinence; I11.0 Hypertensive heart disease with heart failure; I50.23 Acute on chronic systolic (congestive) heart failure; E66.01 Morbid (severe) obesity due to excess calories; E03.9 Hypothyroidism, unspecified; J45.909 Unspecified asthma, uncomplicated; E55.9 Vitamin D deficiency, unspecified; F41.0 Panic disorder [episodic paroxysmal anxiety]; Z79.899 Other long term (current) drug therapy; Z88.0 Allergy status to penicillin; Z88.1 Allergy status to other antibiotic agents; Z88.2 Allergy status to sulfonamides; Z79.4 Long term (current) use of insulin; Z68.42 Body mass index [BMI] 45.0-49.9, adult; R19.8 Other specified symptoms and signs involving the digestive system and abdomen
CPT/HCPCS: 43239; J2704; J3010; J7120; 00731